=== PATIENT | female | born 1960 | race Caucasian/White ===

== ENCOUNTER 2016-05-05 08:56 | Day surgery (SDC) | payer BC, MEDICARE ==
[2016-05-03 10:11] VITALS: BMI 43.9
[~2016-05-05 08:56] MED LIST: LACTATED RINGERS 1,000 ML IV SCH
[2016-05-05 09:11] VITALS: TEMP 98.4
[2016-05-05] MEDS ORDERED: LIDOCAINE 1% 20 ML VIAL (10MG/ML) FOR IV START INTRADERMA ONE (09:18)
[2016-05-05] MEDS ORDERED: PROPOFOL 10 MG/ML 20 ML VIAL IV ONE (09:34)
[2016-05-05] MEDS ORDERED: MIDAZOLAM 2 MG/2 ML VIAL ONE (09:34)
[2016-05-05] MEDS ORDERED: fentaNYL (PF) 50 MCG/ML 2 ML AMP ONE (09:34)
--- NOTE | 2016-05-05 09:58 | P.PCN ---
Date of Procedure: 05/05/16 Procedure(s) Performed: BRIEF HISTORY: Patient is a 56-year-old pleasant white female, scheduled for an elective colonoscopy as a part of screening for colorectal neoplasia. PROCEDURE PERFORMED: Colonoscopy with snare polypectomy. PREOPERATIVE DIAGNOSIS: Screening for colon cancer. IV sedation per Anesthesia. PROCEDURE: After informed consent was obtained, the patient, was brought into the endoscopy unit. IV conscious sedation was administered by Anesthesia under continuous monitoring. Initially the Olympus CF-160 flexible video colonoscope was then inserted in the rectum, gradually advanced into the cecum without any difficulty. Careful examination was performed as the scope was gradually being withdrawn. Ileocecal valve and the appendiceal orifice were visualized and appeared normal. Prep was excellent. Mucosa of the cecum, ascending colon, appeared normal. In the transverse colon there was a 7 mL polyp removed by snare polypectomy. The rest of the transverse colon, descending colon, sigmoid colon, and rectum appeared normal. Retroflexion was performed in the rectum and no lesions were seen. The patient tolerated the procedure well. IMPRESSION: 7 mm transverse colon polyp status post polypectomy. Rest of the colon appeared normal. RECOMMENDATIONS: Findings of this examination were discussed with the patient as well as her family. She was advised to have follow with the biopsy results. If the biopsy shows a tubular adenoma she can have a repeat colonoscopy in 5 years.
[2016-05-05 10:23] VITALS: BP 132/74; PULSE 72; RESP 18
== END 2016-05-05 10:54 | disposition home or self-care (01) ==
LOC: ORWHC2ENDO 08:56
PROVIDERS: ATTEND Internal Medicine Gastroenterology
DX: Z12.11 Encounter for screening for malignant neoplasm of colon (principal); K63.5 Polyp of colon; E07.9 Disorder of thyroid, unspecified; F32.9 Major depressive disorder, single episode, unspecified; F17.200 Nicotine dependence, unspecified, uncomplicated; Z79.899 Other long term (current) drug therapy
CPT/HCPCS: 88305; 45385; J2250; J3010; J2704

== ENCOUNTER 2016-06-05 16:00 | Emergency (ER) | payer SELFPAY ==
[2016-06-05] MEDS ORDERED: SODIUM CHLORIDE 0.9% 1,000 ML IV STA (16:27)
[2016-06-05 17:03] LABS: Ammonia <9 umol/L (<30)
[2016-06-05 17:07] LABS: ALT 25 U/L (9-52); AST 54 U/L (14-36); Alkaline Phosphatase 142 U/L (38-126); Anion Gap 10 mmol/L; Blood Urea Nitrogen 19 mg/dL (7-17); Calcium 8.5 mg/dL (8.4-10.2); Carbon Dioxide 25 mmol/L (22-30); Chloride 109 mmol/L (98-107); Glucose 112 mg/dL (74-99); Non-African American GFR(MDRD) >60 (>60 ml/min/1.73 sqM); Potassium 4.6 mmol/L (3.5-5.1); Sodium 144 mmol/L (137-145); Total Bilirubin 2.2 mg/dL (0.2-1.3); Total Protein 5.8 g/dL (6.3-8.2)
[2016-06-05 17:15] LABS: CHCM 30.5; HCT 33.1 % (34.0-46.0); HDW 3.48; Hypochromasia Moderate; MCH 27.4 pg (25.0-35.0); MCHC 30.9 g/dL (31.0-37.0); MCV 88.7 fL (80.0-100.0); Mean Platelet Volume 7.6; Poikilocytosis Slight; RBC 3.73 m/uL (3.80-5.40); RDW 15.9 % (11.5-15.5); WBC (Perox) 18.67
[2016-06-05 17:20] LABS: HGB 10.2 gm/dL (11.4-16.0)
[2016-06-05 17:23] LABS: Creatine Kinase 91 U/L (30-135)
[2016-06-05] MEDS ORDERED: RX INFO: IV CONTRAST WAS GIVEN 1 EACH MISC MISCELLANE PRN (17:27)
[2016-06-05] MEDS ORDERED: cefTRIAXone 2,000 MG in SODIUM CHLORIDE 0.9% 100 ML IVPB STA (17:29)
[2016-06-05 17:34] LABS: INR 1.6 (<1.1); Partial Thromboplastin Time 28.4 sec (22.0-30.0); Prothrombin Time 15.6 sec (9.0-12.0)
[2016-06-05 17:36] LABS: Creatine Kinase MB 2.1 ng/mL (0.0-2.4); Troponin I <0.012 ng/mL (0.000-0.034)
[2016-06-05 17:46] LABS: Add Differential Manual Differential
[2016-06-05 17:49] LABS: Nucleated Red Blood Cells 1 /100 WBC (0-0); Total Cells Counted 200
[2016-06-05 17:50] LABS: Target Cells Present; WBC 17.4 k/uL (3.8-10.6)
--- NOTE | 2016-06-05 18:20 | XR ---
EXAMINATION TYPE: XR chest 2V DATE OF EXAM: 06/05/2016 6:05 PM COMPARISON: 04/23/2014 HISTORY: Abdominal pain. Chest pain TECHNIQUE: Frontal and lateral views of the chest are obtained. FINDINGS: There is a large left pleural effusion. There is no gross heart failure. Heart appears enl arged. There are chest leads. IMPRESSION: There is a new large left pleural effusion compared to last exam. Mild cardiomegaly. Lef t lower lobe pneumonia cannot be excluded.
--- NOTE | 2016-06-05 18:56 | CT ---
EXAMINATION TYPE: CT brain wo con DATE OF EXAM: 06/05/2016 6:40 PM COMPARISON: NONE HISTORY: Confusion. CT DLP: 1012.70 mGycm Automated exposure control for dose reduction was used. FINDINGS: Ventricles of normal size. There is no mass effect nor midline shift. There is some subtle hypodensity in the anterior right temporal lobe. There is slight hypodensity in the right internal capsule near the Melissa. There is no midline shift. There is no sign of intracrania l hemorrhage. IMPRESSION: There is some subtle hypodensity in the right temporal lobe that could relate to an acute ischemic in farct.
--- NOTE | 2016-06-05 19:07 | CT ---
EXAMINATION TYPE: CT abdomen pelvis w con DATE OF EXAM: 06/05/2016 6:40 PM COMPARISON: NONE HISTORY: Bright red rectal bleeding. CT DLP: 4696.20 mGycm Automated exposure control for dose reduction was used. TECHNIQUE: Helical acquisition of images was performed from the lung bases through the pelvis. CONTRAST: Performed without Oral Contrast and with IV Contrast, patient injected with 100 mL of Omnipaque 300. FINDINGS: There is a moderate-sized left pleural effusion. There is atelectasis in the left lower lobe. The sto mach is displaced anteriorly. There is a large mixed density mass in the left upper quadrant. This me asures 19 x 14 cm. The liver has normal size. Gallbladder appears normal. The pancreatic tail appears medially displaced. There is subcutaneous edema over the lower lumbar spine. Kidneys show satisfactory contrast opacification. There is no hydronephrosis. There is no adrenal mas s. There is no retroperitoneal adenopathy. Bladder distends smoothly. There is some free fluid in the pelvis. There is a right hip prosthesis. E xam is limited by metal artifact. The lower lumbar spine shows degenerative disc space narrowing and vacuum disc phenomenon. IMPRESSION: THERE IS A LARGE COMPLEX MASS IN THE LEFT UPPER QUADRANT THAT COULD RELATE TO A LARGE SUBCAPSULAR CHR ONIC HEMATOMA OF THE SPLEEN. THERE ARE SURGICAL CLIPS IN THE LEFT UPPER QUADRANT AT THE TAIL OF THE P ANCREAS OF UNCERTAIN SIGNIFICANCE. SURGICAL CLIPS APPEARED NEW COMPARED TO CHEST CT SCAN OF 6. THIS RESULT WAS GIVEN TO DR. PHILLIPS AT 7:00 PM. LEFT PLEURAL EFFUSION AND LEFT LOWER LOBE ATELECTASIS. MILD ASCITES. NO EVIDENCE OF A BOWEL OBSTRUCTION. SPLENIC HEMATOMA IS NEW COMPARED TO THE CHEST CT SC AN OF 12/31/2015.
[2016-06-05 19:08] VITALS: BP 132/63; TEMP 100.5
[2016-06-05 19:13] LABS: Appearance,Urine Cloudy (Clear); Bilirubin,Urine 1+ (Negative); Glucose,Urine (UA) Negative (Negative); Ketones,Urine Negative (Negative); Leukocyte Esterase,Urine Small (Negative); Mucus,Urine Moderate /hpf; Nitrite,Urine Negative (Negative); PH, Urine 6.5 (5.0-8.0); Particle Count 9157; Protein,Urine Trace (Negative); RBC,Urine 62 /hpf (0-5); Squamous Epithelial Cell,Urine 3 /hpf (0-4); UA Billing (MACRO vs. MICRO) MICRO; Urobilinogen,Urine >12.0 mg/dL (<2.0); WBC,Urine 40 /hpf (0-5)
[2016-06-05] MEDS ORDERED: ACETAMINOPHEN TAB 500 MG TAB PO STA (19:19)
--- NOTE | 2016-06-05 19:23 | ED ---
GI Bleed HPI - General Chief complaint: GI Bleed Stated complaint: RECTAL BLEEDING Time Seen by Provider: 06/05/16 16:12 Source: EMS Mode of arrival: EMS - History of Present Illness Initial comments: 56 years old was sent from our point for the GI bleed she had some bright red blood per rectum, she had quite a quite active 2 months. She had colonoscopy in the first part of May then she had abdominal pain since [place] [facility] [place] she had splenic bleed at that point she had the embolization of the bleeder, after that she developed CVA and she had a blood clot removed interventional neurologist after that she was started on now blood thinners him a she has been doing very well as far as the effected side she been making progress as well as CVA was concerned. Review of system is unremarkable otherwise - Related Data Home Medications Medication Instructions Recorded Confirmed Albuterol Sulfate [Ventolin HFA] 2 puff INHALATION RT-Q4H PRN 05/03/16 06/05/16 Ergocalciferol (Vitamin D2) 50,000 unit PO MO 05/03/16 06/05/16 [Vitamin D2] Levothyroxine Sodium [Synthroid] 100 mcg PO DAILY 05/03/16 06/05/16 Venlafaxine HCl [Venlafaxine HCl 37.5 mg PO HS 05/03/16 06/05/16 ER] Venlafaxine HCl [Venlafaxine HCl 150 mg PO HS 05/03/16 06/05/16 ER] Apixaban [Eliquis] 5 mg PO BID 06/05/16 06/05/16 Aspirin 325 mg PO DAILY 06/05/16 06/05/16 Atorvastatin Calcium [Lipitor] 10 mg PO HS 06/05/16 06/05/16 Furosemide [Lasix] 40 mg PO DAILY 06/05/16 06/05/16 Hydrocodone/Acetaminophen [Wysox 1 tab PO Q4HR PRN 06/05/16 06/05/16 7.5-325] Levofloxacin [Levaquin] 500 mg PO DAILY 06/05/16 06/05/16 Potassium Chloride [Klor-Con 20] 20 meq PO DAILY 06/05/16 06/05/16 guaiFENesin [Mucinex] 600 mg PO BID 06/05/16 06/05/16 Allergies Allergy/AdvReac Type Severity Reaction Status Date / Time vancomycin Allergy Red Man Verified 06/05/16 18:05 Syndrome Review of Systems ROS Statement: Those systems with pertinent positive or pertinent negative responses have been documented in the HPI. ROS Other: All systems not noted in ROS Statement are negative. Past Medical History Past Medical History: CVA/TIA, Thyroid Disorder Additional Past Medical History / Comment(s): OCCASIONAL LEG SWELLING History of Any Multi-Drug Resistant Organisms: None Reported Past Surgical History: Section, Hysterectomy, Joint Replacement Additional Past Surgical History / Comment(s): MARY KNEE REPLACEMENTS, RT HIP REPLACEMENT, c-secx2 Additional Past Anesthesia/Blood Transfusion Reaction / Comment(s): "HARD TIME WAKING UP" Past Psychological History: Anxiety Smoking Status: Current every day smoker Past Alcohol Use History: Rare Additional Past Alcohol Use History / Comment(s): STARTED SMOKING AGE 15, STATES SMOKES >1PPD Past Drug Use History: None Reported - Past Family History Mother Family Medical History: Cancer Additional Family Medical History / Comment(s): LYMPHOMA General Exam - General Exam Comments Initial Comments: General: The patient is awake and alert, in no distress, and does not appear acutely ill. She looks tired and pale Skin: Skin is warm and dry and no rashes or lesions are noted. Eye: Pupils are equal, round and reactive to light, extra-ocular movements are intact; there is normal conjunctiva bilaterally. Ears, nose, mouth and throat: There are moist mucous membranes and no oral lesions. Neck: The neck is supple, there is no tenderness Cardiovascular: There is a regular rate and rhythm. No murmur, rub or gallop is appreciated. Respiratory: To auscultation bilateral, no wheezing no rhonchi no distress respiratory mcadams noticed Gastrointestinal: All stable bowel sounds, mild diffuse tenderness over the splenic area Back: There is no tenderness to palpation in the midline. There is no obvious deformity. Musculoskeletal: Normal ROM, no tenderness, There is no pedal edema. There is no calf tenderness or swelling. No cords were appreciated. Neurological: CN II-XII intact, Cranial nerves III through XII are intact. There are no obvious motor or sensory deficits. Coordination appears grossly intact. Speech is normal. Psychiatric: Cooperative, appropriate mood & affect, normal judgment. Course Vital Signs 06/05/16 06/05/16 16:03 19:03 Temperature 98.5 F 100.5 F H Pulse Rate 87 75 Respiratory 18 18 Rate Blood Pressure 133/64 132/63 O2 Sat by Pulse 96 95 Oximetry , Get a call from the radiologist about finding about the spleen he stated he do not see active spleen but this is not a normal spleen me seeing some swelling some possible hemorrhage is not sure if this acute or subacute him, knowing patient's recent history of for a splenic injury and then the splenic all 3 intervention or embolization and being on a blood thinners family requested that they would like to go back to if this with a clear decision they did not want to go to any other place and hemoglobin has dropped from 16.2-10.2 I actually feel this is lower than 10.2-10.2 is somewhat hemoconcentrated because of the dehydration and she is on a blood thinners at this point considering that I did get hold of [place] [facility] and they accepted the patient accepting doctors name at is Dr Palma Medical Decision Making - Lab Data Result diagrams: 06/05/16 16:11 06/05/16 16:11 Lab Results 06/05/16 06/05/16 06/05/16 Range/Units 16:11 16:11 16:11 WBC 17.4 H (3.8-10.6) k/uL RBC 3.73 L (3.80-5.40) m/uL Hgb 10.2 L D (11.4-16.0) gm/dL Hct 33.1 L (34.0-46.0) % MCV 88.7 (80.0-100.0) fL MCH 27.4 (25.0-35.0) pg MCHC 30.9 L (31.0-37.0) g/dL RDW 15.9 H (11.5-15.5) % Plt Count 882 H* D (150-450) k/uL Neutrophils % (Manual) 73.5 % Lymphocytes % (Manual) 13.5 % Monocytes % (Manual) 11.5 % Eosinophils % (Manual) 1.5 % Neutrophils # (Manual) 12.8 H (1.3-7.7) k/uL Lymphocytes # (Manual) 2.3 (1.0-4.8) k/uL Monocytes # (Manual) 2.0 H (0-1.0) k/uL Eosinophils # (Manual) 0.3 (0-0.7) k/uL Nucleated RBCs 1 H (0-0) /100 WBC Hypochromasia Moderate Poikilocytosis Slight Anisocytosis (manual) Present Target Cells Present PT (9.0-12.0) sec INR (<1.1) APTT (22.0-30.0) sec Sodium (137-145) mmol/L Potassium (3.5-5.1) mmol/L Chloride (98-107) mmol/L Carbon Dioxide (22-30) mmol/L Anion Gap mmol/L BUN (7-17) mg/dL Creatinine (0.52-1.04) mg/dL Est GFR (MDRD) Af Amer (>60 ml/min/1.73 sqM) Est GFR (MDRD) Non-Af (>60 ml/min/1.73 sqM) Glucose (74-99) mg/dL Plasma Lactic Acid Abdiel 1.3 (0.7-2.0) mmol/L Calcium (8.4-10.2) mg/dL Total Bilirubin (0.2-1.3) mg/dL AST (14-36) U/L ALT (9-52) U/L Alkaline Phosphatase (38-126) U/L Ammonia <9 (<30) umol/L Total Creatine Kinase 91 (30-135) U/L CK-MB (CK-2) 2.1 (0.0-2.4) ng/mL CK-MB (CK-2) Rel Index 2.3 Troponin I <0.012 (0.000-0.034) ng/mL Total Protein (6.3-8.2) g/dL Albumin (3.5-5.0) g/dL Urine Color Urine Appearance (Clear) Urine pH (5.0-8.0) Ur Specific Wagner (1.001-1.035) Urine Protein (Negative) Urine Glucose (UA) (Negative) Urine Ketones (Negative) Urine Blood (Negative) Urine Nitrite (Negative) Urine Bilirubin (Negative) Urine Urobilinogen (<2.0) mg/dL Ur Leukocyte Esterase (Negative) Urine RBC (0-5) /hpf Urine WBC (0-5) /hpf Ur Squamous Epith Cells (0-4) /hpf Urine Mucus (None) /hpf Urine Yeast (Budding) (None) /hpf 06/05/16 06/05/16 06/05/16 Range/Units 16:11 16:51 19:00 WBC (3.8-10.6) k/uL RBC (3.80-5.40) m/uL Hgb (11.4-16.0) gm/dL Hct (34.0-46.0) % MCV (80.0-100.0) fL MCH (25.0-35.0) pg MCHC (31.0-37.0) g/dL RDW (11.5-15.5) % Plt Count (150-450) k/uL Neutrophils % (Manual) % Lymphocytes % (Manual) % Monocytes % (Manual) % Eosinophils % (Manual) % Neutrophils # (Manual) (1.3-7.7) k/uL Lymphocytes # (Manual) (1.0-4.8) k/uL Monocytes # (Manual) (0-1.0) k/uL Eosinophils # (Manual) (0-0.7) k/uL Nucleated RBCs (0-0) /100 WBC Hypochromasia Poikilocytosis Anisocytosis (manual) Target Cells PT 15.6 H (9.0-12.0) sec INR 1.6 (<1.1) APTT 28.4 (22.0-30.0) sec Sodium 144 (137-145) mmol/L Potassium 4.6 (3.5-5.1) mmol/L Chloride 109 H (98-107) mmol/L Carbon Dioxide 25 (22-30) mmol/L Anion Gap 10 mmol/L BUN 19 H (7-17) mg/dL Creatinine 0.68 (0.52-1.04) mg/dL Est GFR (MDRD) Af Amer >60 (>60 ml/min/1.73 sqM) Est GFR (MDRD) Non-Af >60 (>60 ml/min/1.73 sqM) Glucose 112 H (74-99) mg/dL Plasma Lactic Acid Abdiel (0.7-2.0) mmol/L Calcium 8.5 (8.4-10.2) mg/dL Total Bilirubin 2.2 H (0.2-1.3) mg/dL AST 54 H (14-36) U/L ALT 25 (9-52) U/L Alkaline Phosphatase 142 H (38-126) U/L Ammonia (<30) umol/L Total Creatine Kinase (30-135) U/L CK-MB (CK-2) (0.0-2.4) ng/mL CK-MB (CK-2) Rel Index Troponin I (0.000-0.034) ng/mL Total Protein 5.8 L (6.3-8.2) g/dL Albumin 2.6 L (3.5-5.0) g/dL Urine Color Yellow Urine Appearance Cloudy H (Clear) Urine pH 6.5 (5.0-8.0) Ur Specific Wagner 1.030 (1.001-1.035) Urine Protein Trace H (Negative) Urine Glucose (UA) Negative (Negative) Urine Ketones Negative (Negative) Urine Blood Moderate H (Negative) Urine Nitrite Negative (Negative) Urine Bilirubin 1+ H (Negative) Urine Urobilinogen >12.0 (<2.0) mg/dL Ur Leukocyte Esterase Small H (Negative) Urine RBC 62 H (0-5) /hpf Urine WBC 40 H (0-5) /hpf Ur Squamous Epith Cells 3 (0-4) /hpf Urine Mucus Moderate H (None) /hpf Urine Yeast (Budding) Moderate H (None) /hpf Critical Care Time Total Critical Care Time: 45 Critical Care Time: Centering she is on now blood thinners and CT confirms a splenic injury and she has a recent history of splenic injury where she had interventional radiologists embolized the bleeder and now her hemoglobin has dropped significantly from 16.2-10.2. Arrangements were made for 4 transferred to [facility] (family's decision to go to and a considering pneumonia she was given some antibiotics Rocephin 2 g and she also was we also did the fluid resuscitation, no transfusion is required considering her hemoglobin is 10.2 and 90 do not want to delay the trauma transfer Disposition Clinical Impression: GI bleed, Anemia, Splenic hemorrhage, Pneumonia Disposition: OTHER INSTITUTION NOT DEFINED Condition: Fair - Out of Hospital Transfer - Req. Specs Out of Hospital Transfer - Requested Specifics: Other Emergency Center (She be going to at [facility])
[2016-06-05] MEDS ORDERED: ACETAMINOPHEN IV (For NPO) 1,000 MG in EMPTY BAG 1 BAG IVPB ONE (19:30)
[2016-06-05 19:32] VITALS: PULSE 91; RESP 16
== END 2016-06-05 19:58 | disposition short-term general hospital (02) ==
LOC: EC 16:00
DX: K92.2 Gastrointestinal hemorrhage, unspecified (principal); D73.5 Infarction of spleen; J18.9 Pneumonia, unspecified organism; D64.9 Anemia, unspecified; E07.9 Disorder of thyroid, unspecified; F41.9 Anxiety disorder, unspecified; F17.200 Nicotine dependence, unspecified, uncomplicated; Z86.73 Personal history of transient ischemic attack (TIA), and cerebral infarction without residual deficits; Z79.82 Long term (current) use of aspirin; Z79.899 Other long term (current) drug therapy; Z79.01 Long term (current) use of anticoagulants; Z88.1 Allergy status to other antibiotic agents
CPT/HCPCS: 99291; 96365; 96375; 96361 ×2; 36415; 80053; 82140; 82550; 82553; 83605; 84484; 85025; 85610; 85730; 81001; 71020; 70450; 74177; J0696; Q9967; J0131

== ENCOUNTER → 2016-06-20 | Outpatient (CLI) | payer BC ==
[2016-06-20 19:35] LABS: Basophils % (A) 0 %; CH 26.9; CHCM 29.4; Eosinophils # (A) 0.4 k/uL (0-0.7); Eosinophils % (A) 3 %; HCT 37.2 % (34.0-46.0); HDW 3.47; Hypochromasia Marked; Luc # (Auto) 0.41; Luc % (Auto) 4; Lymphocytes # (A) 2.8 k/uL (1.0-4.8); Lymphocytes % (A) 25 %; MCH 27.2 pg (25.0-35.0); MCHC 29.6 g/dL (31.0-37.0); MCV 91.8 fL (80.0-100.0); Mean Platelet Volume 7.8; Monocytes # (A) 1.4 k/uL (0-1.0); Monocytes % (A) 13 %; Neutrophils # (A) 6.1 k/uL (1.3-7.7); Neutrophils % (A) 55 %; Poikilocytosis Slight; RBC 4.05 m/uL (3.80-5.40); RDW 15.5 % (11.5-15.5); WBC 11.1 k/uL (3.8-10.6); WBC (Perox) 11.75
[2016-06-20 19:40] LABS: AST 86 U/L (14-36); Alkaline Phosphatase 238 U/L (38-126); Anion Gap 14 mmol/L; Blood Urea Nitrogen 12 mg/dL (7-17); Carbon Dioxide 26 mmol/L (22-30); Chloride 100 mmol/L (98-107); Glucose 102 mg/dL (74-99); Non-African American GFR(MDRD) >60 (>60 ml/min/1.73 sqM); Sodium 140 mmol/L (137-145); Total Protein 7.8 g/dL (6.3-8.2)
[2016-06-20 19:46] LABS: ALT <6 U/L (9-52)
[2016-06-20 19:51] LABS: Potassium 4.6 mmol/L (3.5-5.1)
== END ==
LOC: MMGSC 12:22
PROVIDERS: ATTEND Family Medicine
DX: S36.039A Unspecified laceration of spleen, initial encounter (principal); Z86.2 Personal history of diseases of the blood and blood-forming organs and certain disorders involving the immune mechanism
CPT/HCPCS: 36415; 80053; 85025

== ENCOUNTER → 2016-06-22 | Outpatient (CLI) | payer BC | LOC: MMGSC 12:28 | PROVIDERS: ATTEND Family Medicine | DX: N39.0 Urinary tract infection, site not specified (principal) | CPT/HCPCS: 87077; 87086; 87186 ==

== ENCOUNTER → 2016-06-28 | Outpatient (CLI) | payer BC ==
[2016-06-28 19:07] LABS: Basophils % (A) 0 %; CH 26.3; CHCM 29.2; Eosinophils # (A) 0.2 k/uL (0-0.7); Eosinophils % (A) 2 %; HCT 39.2 % (34.0-46.0); HDW 3.15; HGB 11.5 gm/dL (11.4-16.0); Hypochromasia Marked; Luc % (Auto) 2; Lymphocytes # (A) 2.5 k/uL (1.0-4.8); Lymphocytes % (A) 22 %; MCH 26.4 pg (25.0-35.0); MCHC 29.2 g/dL (31.0-37.0); MCV 90.4 fL (80.0-100.0); Mean Platelet Volume 7.1; Monocytes # (A) 1.1 k/uL (0-1.0); Monocytes % (A) 9 %; Neutrophils # (A) 7.5 k/uL (1.3-7.7); Neutrophils % (A) 65 %; RBC 4.34 m/uL (3.80-5.40); RDW 15.8 % (11.5-15.5); WBC 11.6 k/uL (3.8-10.6); WBC (Perox) 11.56
[2016-06-28 19:09] LABS: ALT 12 U/L (9-52); AST 17 U/L (14-36); Alkaline Phosphatase 103 U/L (38-126); Anion Gap 12 mmol/L; Blood Urea Nitrogen 18 mg/dL (7-17); Calcium 9.4 mg/dL (8.4-10.2); Carbon Dioxide 25 mmol/L (22-30); Chloride 103 mmol/L (98-107); Glucose 130 mg/dL (74-99); Non-African American GFR(MDRD) >60 (>60 ml/min/1.73 sqM); Potassium 4.2 mmol/L (3.5-5.1); Sodium 140 mmol/L (137-145); Total Bilirubin 0.8 mg/dL (0.2-1.3)
[2016-06-29 18:41] LABS: Hemoglobin A1C 5.9 % (4.2-6.1)
== END ==
LOC: MMGSC 12:03
PROVIDERS: ATTEND Family Medicine
DX: R79.89 Other specified abnormal findings of blood chemistry (principal)
CPT/HCPCS: 36415; 80053; 83036; 85025

== ENCOUNTER → 2016-07-06 | Outpatient (CLI) | payer BC ==
[2016-07-06 18:52] LABS: Anisocytosis Slight; Basophils # (A) 0.1 k/uL (0-0.2); Basophils % (A) 1 %; CH 25.9; CHCM 27.7; Eosinophils # (A) 0.7 k/uL (0-0.7); Eosinophils % (A) 5 %; HCT 42.2 % (34.0-46.0); HDW 2.89; HGB 11.9 gm/dL (11.4-16.0); Hypochromasia Marked; Luc # (Auto) 0.41; Luc % (Auto) 3; Lymphocytes # (A) 2.8 k/uL (1.0-4.8); Lymphocytes % (A) 21 %; MCH 26.5 pg (25.0-35.0); MCHC 28.2 g/dL (31.0-37.0); MCV 93.8 fL (80.0-100.0); Monocytes # (A) 0.9 k/uL (0-1.0); Monocytes % (A) 7 %; Neutrophils # (A) 8.3 k/uL (1.3-7.7); Neutrophils % (A) 63 %; RDW 16.1 % (11.5-15.5); WBC 13.1 k/uL (3.8-10.6); WBC (Perox) 13.42
== END | disposition home or self-care (01) ==
LOC: MMGSC 11:20
PROVIDERS: ATTEND Family Medicine
DX: R82.90 Unspecified abnormal findings in urine (principal); R79.9 Abnormal finding of blood chemistry, unspecified
CPT/HCPCS: 36415; 85025; 87086

== ENCOUNTER → 2016-07-19 | Outpatient (CLI) | payer BC ==
[2016-07-19 18:58] LABS: ALT 15 U/L (9-52); AST 18 U/L (14-36); Alkaline Phosphatase 81 U/L (38-126); Anion Gap 11 mmol/L; Blood Urea Nitrogen 10 mg/dL (7-17); Calcium 9.3 mg/dL (8.4-10.2); Carbon Dioxide 25 mmol/L (22-30); Chloride 101 mmol/L (98-107); Creatine Kinase 44 U/L (30-135); Glucose 105 mg/dL (74-99); Non-African American GFR(MDRD) >60 (>60 ml/min/1.73 sqM); Potassium 4.5 mmol/L (3.5-5.1); Sodium 137 mmol/L (137-145); Total Bilirubin 0.7 mg/dL (0.2-1.3); Total Protein 6.6 g/dL (6.3-8.2)
[2016-07-19 19:19] LABS: Anisocytosis Slight; Basophils # (A) 0.1 k/uL (0-0.2); Basophils % (A) 0 %; CH 26.1; CHCM 28.9; Eosinophils # (A) 0.3 k/uL (0-0.7); Eosinophils % (A) 2 %; HCT 37.7 % (34.0-46.0); HDW 2.69; HGB 11.3 gm/dL (11.4-16.0); Hypochromasia Marked; Luc # (Auto) 0.25; Luc % (Auto) 2; Lymphocytes # (A) 2.2 k/uL (1.0-4.8); Lymphocytes % (A) 17 %; MCH 27.2 pg (25.0-35.0); MCHC 29.9 g/dL (31.0-37.0); MCV 90.7 fL (80.0-100.0); Mean Platelet Volume 7.8; Monocytes # (A) 1.3 k/uL (0-1.0); Monocytes % (A) 10 %; Neutrophils # (A) 9.4 k/uL (1.3-7.7); Neutrophils % (A) 69 %; RBC 4.16 m/uL (3.80-5.40); RDW 16.3 % (11.5-15.5); WBC 13.6 k/uL (3.8-10.6); WBC (Perox) 13.74
== END ==
LOC: MMGSC 10:55
PROVIDERS: ATTEND Family Medicine
DX: D72.829 Elevated white blood cell count, unspecified (principal); M79.1 Myalgia
CPT/HCPCS: 36415; 80053; 82550; 83735; 85025

== ENCOUNTER → 2016-08-24 | Outpatient (CLI) | payer BC ==
[2016-08-24 18:49] LABS: Anisocytosis Slight; Basophils # (A) 0.1 k/uL (0-0.2); Basophils % (A) 1 %; CH 26.1; CHCM 28.7; Eosinophils # (A) 0.2 k/uL (0-0.7); Eosinophils % (A) 2 %; HDW 2.84; HGB 13.5 gm/dL (11.4-16.0); Hypochromasia Marked; Luc # (Auto) 0.24; Luc % (Auto) 2; Lymphocytes # (A) 2.9 k/uL (1.0-4.8); Lymphocytes % (A) 27 %; MCH 25.2 pg (25.0-35.0); MCHC 27.5 g/dL (31.0-37.0); MCV 91.6 fL (80.0-100.0); Mean Platelet Volume 8.4; Monocytes # (A) 0.8 k/uL (0-1.0); Monocytes % (A) 8 %; Neutrophils # (A) 6.4 k/uL (1.3-7.7); Neutrophils % (A) 61 %; RBC 5.36 m/uL (3.80-5.40); RDW 16.7 % (11.5-15.5); WBC 10.6 k/uL (3.8-10.6); WBC (Perox) 10.78
[2016-08-24 18:55] LABS: ALT 17 U/L (9-52); AST 25 U/L (14-36); Alkaline Phosphatase 110 U/L (38-126); Anion Gap 12 mmol/L; Blood Urea Nitrogen 16 mg/dL (7-17); Calcium 9.6 mg/dL (8.4-10.2); Carbon Dioxide 25 mmol/L (22-30); Chloride 103 mmol/L (98-107); Glucose 91 mg/dL (74-99); Non-African American GFR(MDRD) >60 (>60 ml/min/1.73 sqM); Potassium 4.4 mmol/L (3.5-5.1); Sodium 140 mmol/L (137-145); Total Bilirubin 0.9 mg/dL (0.2-1.3); Total Protein 7.5 g/dL (6.3-8.2)
== END ==
LOC: MMGSC 15:59
PROVIDERS: ATTEND Family Medicine
DX: D72.829 Elevated white blood cell count, unspecified (principal); R79.89 Other specified abnormal findings of blood chemistry
CPT/HCPCS: 36415; 80053; 85025

== ENCOUNTER → 2016-08-29 | Outpatient (CLI) | payer BC ==
[2016-08-29 11:56] LABS: Cholesterol 155 mg/dL (<200); HDL Cholesterol 84 mg/dL (40-60); Triglycerides 81 mg/dL (<150)
[2016-09-01 13:58] LABS: Protein C (Activity) 123 % (70 - 130)
[2016-09-01 13:59] LABS: Free Protein S Antigen 115 % (50 - 147)
== END | disposition home or self-care (01) ==
LOC: LABWHC1 09:50
PROVIDERS: ATTEND Psychiatry & Neurology Neurology
DX: I63.9 Cerebral infarction, unspecified (principal)
CPT/HCPCS: 36415; 80061; 83090; 85303; 85306; 85613; 85730; 86147

== ENCOUNTER → 2016-09-06 | Outpatient (CLI) | payer BC ==
--- NOTE | 2016-09-06 13:04 | CT ---
EXAMINATION TYPE: CT abdomen pelvis w con DATE OF EXAM: 09/06/2016 COMPARISON: June 05, 2016 HISTORY: Abdomen and pelvic pain CT DLP: 3330.1 mGycm CONTRAST: CT scan of the abdomen and pelvis is performed with Oral Contrast and with IV Contrast, patient injec go with 100 mL of Omnipaque 300. FINDINGS: LUNG BASES-: No visible nodule. No infiltrate. Left basilar effusion is noted measuring 1.7 cm in AP dimension. The lung bases are otherwise clear LIVER/GB: No calcified gallstones. No space occupying hepatic lesion. Biliary tree is of normal ca liber. There is evidence of fatty hepatic infiltration. PANCREAS: No inflammation. No distinct mass. SPLEEN: No splenic enlargement. No lesion seen. ADRENALS: No nodule. No thickening. KIDNEYS/BLADDER: No hydronephrosis. No nephrolithiasis. No disctinct renal mass. Urinary bladder g rossly unremarkable. BOWEL: Normal appendix. Normal bowel caliber. No inflammation. GENITAL ORGANS: No gross abnormality. LYMPH NODES: No greater than 1cm abdominal or pelvic lymph nodes are appreciated. AORTA: No significant abnormality. OSSEOUS STRUCTURES: Right hip prosthesis. Degenerative changes lumbar spine. IVC filter is in place. OTHER: Large mass seen previously is significantly smaller in size on the current examination and osbaldo sures approximately 6.5 x 5.7 x 4.7 cm versus 19 x 14 cm previously. Most of the mass appears solid w ith small fluid or necrotic components seen. Adjacent nodule is identified measuring approximately 2 cm. IMPRESSION: 1. Large mass seen previously is significantly smaller in size on the current examination and measure s approximately 6.5 x 5.7 x 4.7 cm versus 19 x 14 cm previously. Most of the mass appears solid with small fluid or necrotic components seen. Adjacent nodule is identified . 2. Fatty liver. 3. Small left-sided pleural effusion.
== END ==
LOC: RADCTMAIN 10:50
PROVIDERS: ATTEND Family Medicine
DX: K76.0 Fatty (change of) liver, not elsewhere classified (principal); R19.00 Intra-abdominal and pelvic swelling, mass and lump, unspecified site
CPT/HCPCS: 74177; Q9967

== ENCOUNTER → 2016-09-11 | Outpatient (CLI) | payer BC ==
--- NOTE | 2016-09-11 12:47 | US ---
EXAMINATION TYPE: US venous doppler duplex LE LT DATE OF EXAM: 09/11/2016 11:44 AM COMPARISON: NONE CLINICAL HISTORY: 56-year-old female R22.42 SWELLING LT LOWER LIMB. Recent Left LE swelling. Patient stated had prior right DVT, but due to HX splenic hemorrhage, is unable to be on blood thinners; prio r stroke affecting left side of body as result of splenic hemorrhage per patient SIDE PERFORMED: Left TECHNIQUE: The lower extremity deep venous system is examined utilizing real time linear array sonog amilcar with graded compression, doppler sonography and color-flow sonography. FINDINGS: VESSELS IMAGED: Common Femoral Vein Deep Femoral Vein Greater Saphenous Vein * Femoral Vein Popliteal Vein Small Saphenous Vein * Proximal Calf Veins Posterior tibial veins (* superficial vessels) Left Leg: Negative for DVT IMPRESSION: No evidence for DVT within the left lower extremity.
== END | disposition home or self-care (01) ==
LOC: RADUSWWP 10:53
PROVIDERS: ATTEND Family Medicine
DX: R22.42 Localized swelling, mass and lump, left lower limb (principal)

== ENCOUNTER → 2016-12-01 | Outpatient (CLI) | payer MEDICARE, BC ==
[2016-12-01 21:12] LABS: Anisocytosis Slight; Basophils # (A) 0.1 k/uL (0-0.2); Basophils % (A) 1 %; CH 25.3; CHCM 30.1; Eosinophils % (A) 0 %; HCT 49.6 % (34.0-46.0); HDW 3.01; Hypochromasia Marked; Luc # (Auto) 0.12; Luc % (Auto) 2; Lymphocytes # (A) 1.7 k/uL (1.0-4.8); Lymphocytes % (A) 24 %; MCH 25.5 pg (25.0-35.0); MCHC 30.1 g/dL (31.0-37.0); MCV 84.7 fL (80.0-100.0); Monocytes # (A) 0.6 k/uL (0-1.0); Monocytes % (A) 9 %; Neutrophils # (A) 4.6 k/uL (1.3-7.7); Neutrophils % (A) 65 %; RBC 5.86 m/uL (3.80-5.40); RDW 18.1 % (11.5-15.5); WBC 7.1 k/uL (3.8-10.6); WBC (Perox) 7.35
[2016-12-01 21:14] LABS: ALT 21 U/L (9-52); AST 27 U/L (14-36); Alkaline Phosphatase 124 U/L (38-126); Anion Gap 13 mmol/L; Blood Urea Nitrogen 13 mg/dL (7-17); Calcium 9.6 mg/dL (8.4-10.2); Carbon Dioxide 26 mmol/L (22-30); Chloride 102 mmol/L (98-107); Glucose 96 mg/dL (74-99); Non-African American GFR(MDRD) >60 (>60 ml/min/1.73 sqM); Potassium 4.5 mmol/L (3.5-5.1); Sodium 141 mmol/L (137-145); Total Bilirubin 0.6 mg/dL (0.2-1.3); Total Protein 7.2 g/dL (6.3-8.2)
[2016-12-01 22:01] LABS: Vitamin B12 305 pg/mL (239-931)
== END ==
LOC: MMGSC 12:06
PROVIDERS: ATTEND Family Medicine
DX: D72.829 Elevated white blood cell count, unspecified (principal); R53.83 Other fatigue
CPT/HCPCS: 36415; 80053; 82306; 82607; 84439; 84443; 85025

== ENCOUNTER → 2017-03-12 | Outpatient (CLI) | payer BC ==
--- NOTE | 2017-03-12 13:51 | US ---
EXAMINATION TYPE: US venous doppler duplex LE LT DATE OF EXAM: 03/12/2017 1:38 PM COMPARISON: US CLINICAL HISTORY: R22.42 Left leg swelling. SIDE PERFORMED: Left TECHNIQUE: The lower extremity deep venous system is examined utilizing real time linear array sonog amilcar with graded compression, doppler sonography and color-flow sonography. VESSELS IMAGED: External Iliac Vein (EIV) Common Femoral Vein Deep Femoral Vein Greater Saphenous Vein * Femoral Vein Popliteal Vein Small Saphenous Vein * Proximal Calf Veins (* superficial vessels) Results given to Jolene at Dr's office immediately following exam. Left Leg: Negative for DVT Grayscale, color doppler, spectral doppler imaging performed of the deep veins of the lower extremiti es. There is normal flow, compressibility, vascular waveforms. IMPRESSION: No sonographic evidence of deep venous thrombosis within the left lower extremity.
== END | disposition home or self-care (01) ==
LOC: RADUSWWP 12:43
PROVIDERS: ATTEND Family Medicine
DX: R22.42 Localized swelling, mass and lump, left lower limb (principal)

== ENCOUNTER → 2017-04-19 | Outpatient (CLI) | payer BC | END | disposition home or self-care (01) | LOC: MMGSC 15:02 | PROVIDERS: ATTEND Family Medicine | DX: Z09 Encounter for follow-up examination after completed treatment for conditions other than malignant neoplasm (principal); Z86.39 Personal history of other endocrine, nutritional and metabolic disease | CPT/HCPCS: 36415; 82306 ==

== ENCOUNTER → 2017-05-29 | Outpatient (CLI) | payer BC | END | disposition home or self-care (01) | LOC: MMGSC 16:19 | PROVIDERS: ATTEND Family Medicine | DX: N39.0 Urinary tract infection, site not specified (principal) | CPT/HCPCS: 87086 ==

== ENCOUNTER → 2017-06-05 | Outpatient (CLI) | payer BC ==
--- NOTE | 2017-06-05 18:56 | CONS ---
CONSULTATION REASON FOR CONSULTATION: Sleep apnea. This patient is 57 and she was asked to come in by her neurologist to be evaluated for obstructive sleep apnea. The patient had a CVA that resulted in some left-sided weakness back in 2017. Since then she has become less active and she has gained some weight and she is on and off snoring, yet there are no documented witnessed apneas. Her current Davis score is 8. She is going to bed around midnight and wakes up somewhere between 7:00 and 8:00 in the morning. She at times wakes up to an alarm; however, she feels tired and fatigued during the day. Occasionally she takes naps. She grinds her teeth on and off. No awakening in the middle of night for choking or gasping for air. No restlessness in the lower extremities. PAST MEDICAL HISTORY: 1. Obesity. 2. CVA, left-sided. 3. Anxiety/depression. 4. Complicated colonoscopy, following which the patient had an abdominal bleed, and she ultimately required coiling of the splenic artery, according to her. PAST SURGICAL HISTORY: 1. Coiling of the splenic artery that was bleeding. 2. Insertion and removal of an IVC filter. 3. Bilateral knee replacement. 4. Right hip replacement. 5. . DRUG ALLERGIES: VANCOMYCIN. OUTPATIENT MEDICATION LIST: 1. Lasix 20 daily. 2. Xanax 0.5 mg on a p.r.n. basis. 3. Motrin p.r.n. 4. Effexor 325 mg p.o. daily. 5. Potassium 10 mEq daily. 6. Neurontin 300 mg t.i.d. 7. Vitamin D 1.25 mg weekly. 8. Synthroid 100 mcg p.o. daily. 9. Aspirin 81 daily. 10.Baclofen. SOCIAL HISTORY: The patient is a 8-nxel-k-day smoker. No history of alcoholism. No history of IV drugs. FAMILY HISTORY: Negative for sleep apnea or narcolepsy. REVIEW OF SYSTEMS: Twelve-point review of systems was done. She is having some issues with mobility following her stroke. Her left side is weak. Her left face is also numb and weak. No difficulty with speech. No difficulty with memory and concentration. She worries about her chronic tiredness and sleepiness. No anxiety or panic attacks. No palpitation. No heartburn. No angina. No cough or sputum production. No sexual dysfunction. No falls. PHYSICAL EXAMINATION: BP is 136/81, pulse 72, respirations 16, temperature 97.1, saturation 97% on room air. Weight is 331. Height is 5 feet 11 inches. Davis score is 8. BMI 45.5. Neck size 17 inches. GENERAL APPEARANCE: Calm, comfortable. No acute distress. Head is atraumatic, normocephalic. Neck is short. Mallampati class IV. No goiter or neck masses. LUNGS: Clear to auscultation. HEART: Heart sounds are regular rate and rhythm. Normal S1, S2. No S3, S4. No murmurs. ABDOMEN: Soft, nontender. No organomegaly. EXTREMITIES: No edema. No cyanosis or clubbing. NEUROLOGIC: Alert and oriented x3. No focal neurological deficits. PSYCHIATRIC: Negative for anxiety or depression. SKIN: Negative for any wounds or ulceration. IMPRESSION: 1. Hypersomnia, currently under investigation. Rule out underlying obstructive sleep apnea. 2. Obesity with a body mass index of 45. 3. Cerebrovascular accident with left-sided weakness. 4. Chronic anxiety/depression. 5. Previous history of complicated gastrointestinal bleed. PLAN: 1. Encourage weight loss. 2. Implement good sleep hygiene measures. 3. Proceed with a home sleep study to evaluate any underlying sleep breathing disorder. Will continue to follow. MMODL / IJN: [id number] /
== END | disposition home or self-care (01) ==
LOC: SLEEP 15:35
PROVIDERS: ATTEND Internal Medicine Critical Care Medicine
DX: G47.10 Hypersomnia, unspecified (principal); E66.9 Obesity, unspecified; F17.200 Nicotine dependence, unspecified, uncomplicated; R53.1 Weakness; F41.9 Anxiety disorder, unspecified; F32.9 Major depressive disorder, single episode, unspecified; Z87.19 Personal history of other diseases of the digestive system; Z96.653 Presence of artificial knee joint, bilateral; Z96.641 Presence of right artificial hip joint; Z98.890 Other specified postprocedural states; Z88.1 Allergy status to other antibiotic agents; Z79.82 Long term (current) use of aspirin; Z79.1 Long term (current) use of non-steroidal anti-inflammatories (NSAID); Z86.73 Personal history of transient ischemic attack (TIA), and cerebral infarction without residual deficits; Z68.42 Body mass index [BMI] 45.0-49.9, adult; Z79.899 Other long term (current) drug therapy
CPT/HCPCS: 99211

== ENCOUNTER 2017-06-09 16:48 | Emergency (ER) | payer MEDICARE, BC ==
[2017-06-09 16:54] VITALS: BP 152/73; PULSE 81; RESP 18; TEMP 97.9
--- NOTE | 2017-06-09 17:25 | XR ---
EXAMINATION TYPE: XR foot complete LT DATE OF EXAM: 06/09/2017 CLINICAL HISTORY: Left foot pain worse this digit TECHNIQUE: Frontal, lateral, and oblique images of the left foot are obtained. COMPARISON: None FINDINGS: There is marked flexion in the toes making evaluation suboptimal at this level. There is p oor visualization of the fifth distal phalanx which is focally demineralized. Cannot exclude acrooste olysis at this level. Small sized superior and inferior calcaneal spurs are noted. Mild diffuse subcu taneous edema is seen. 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 Differential includes Raynaud disease, thermal injury, vascular occlusion and other etiologies. Correlate clinically.
[2017-06-09] MEDS ORDERED: HYDROcodone/APAP 5-325MG 1 EACH TAB PO STA ×2 (17:55→20:02)
--- NOTE | 2017-06-09 18:43 | US ---
EXAMINATION TYPE: US venous doppler duplex LE LT DATE OF EXAM: 06/09/2017 6:38 PM COMPARISON: NONE CLINICAL HISTORY: Pain. Pain and edema left foot. Left knee replacement 2011 SIDE PERFORMED: Left lower extremity venous ultrasound March 12, 2017. TECHNIQUE: The lower extremity deep venous system is examined utilizing real time linear array sonog amilcar with graded compression, doppler sonography and color-flow sonography. VESSELS IMAGED: External Iliac Vein (EIV) Common Femoral Vein Deep Femoral Vein Greater Saphenous Vein * Femoral Vein Popliteal Vein Small Saphenous Vein * Proximal Calf Veins (* superficial vessels) Left Leg: No evidence of DVT Grayscale, color doppler, spectral doppler imaging performed of the deep veins of the left lower extr emity. There is normal flow, compressibility, vascular waveforms. IMPRESSION: No ultrasound evidence for acute DVT in the left lower extremity.
--- NOTE | 2017-06-09 19:05 | ED ---
General Adult HPI - General Chief complaint: Extremity Problem,Nontraumatic Stated complaint: Foot pain Time Seen by Provider: 06/09/17 17:04 Source: patient, RN notes reviewed Mode of arrival: ambulatory Limitations: no limitations - History of Present Illness Initial comments: 57-year-old female presents to the emergency department for chief complaint of left foot pain. Patient states that about a week ago she noticed a crack in the bottom of her foot. Patient states since then she has had pain in her left lower extremity. Patient denies any history of injuring the foot or trauma to the foot. She states the pain is mostly on the lateral side of the left lower extremity and extends up to her knee. Patient states nothing makes it better or worse. Patient states the pain is constant. She states it hurts just as much when walking on it and when lying down without pressure being on the foot. Patient states she noticed some swelling in the left leg. Patient had a stroke last year due to a clot after surgery. She has never had DVTs or pulmonary embolisms. - Related Data Home Medications Medication Instructions Recorded Confirmed Albuterol Sulfate [Ventolin HFA] 2 puff INHALATION RT-Q4H PRN 05/03/16 06/05/16 Ergocalciferol (Vitamin D2) 50,000 unit PO MO 05/03/16 06/05/16 [Vitamin D2] Levothyroxine Sodium [Synthroid] 100 mcg PO DAILY 05/03/16 06/05/16 Venlafaxine HCl [Venlafaxine HCl 37.5 mg PO HS 05/03/16 06/05/16 ER] Venlafaxine HCl [Venlafaxine HCl 150 mg PO HS 05/03/16 06/05/16 ER] Apixaban [Eliquis] 5 mg PO BID 06/05/16 06/05/16 Aspirin 325 mg PO DAILY 06/05/16 06/05/16 Atorvastatin Calcium [Lipitor] 10 mg PO HS 06/05/16 06/05/16 Furosemide [Lasix] 40 mg PO DAILY 06/05/16 06/05/16 Hydrocodone/Acetaminophen [[place] 1 tab PO Q4HR PRN 06/05/16 06/05/16 7.5-325] Levofloxacin [Levaquin] 500 mg PO DAILY 06/05/16 06/05/16 Potassium Chloride [Klor-Con 20] 20 meq PO DAILY 06/05/16 06/05/16 guaiFENesin [Mucinex] 600 mg PO BID 06/05/16 06/05/16 Previous Rx's Medication Instructions Recorded Fluconazole [Diflucan] 150 mg PO ONCE #1 tab 06/09/17 HYDROcodone/APAP 5-325MG [[place] 1 tab PO Q6HR PRN #12 tab 06/09/17 5-325] Sulfamethox-Tmp 800-160Mg [Bactrim 1 tab PO Q12HR #20 tab 06/09/17 DS 800-160 mg] Allergies Allergy/AdvReac Type Severity Reaction Status Date / Time vancomycin Allergy Red Man Verified 06/09/17 16:54 Syndrome Review of Systems ROS Statement: Those systems with pertinent positive or pertinent negative responses have been documented in the HPI. ROS Other: All systems not noted in ROS Statement are negative. Past Medical History Past Medical History: CVA/TIA, Thyroid Disorder Additional Past Medical History / Comment(s): OCCASIONAL LEG SWELLING History of Any Multi-Drug Resistant Organisms: None Reported Past Surgical History: Section, Hysterectomy, Joint Replacement Additional Past Surgical History / Comment(s): MARY KNEE REPLACEMENTS, RT HIP REPLACEMENT, c-secx2 Additional Past Anesthesia/Blood Transfusion Reaction / Comment(s): "HARD TIME WAKING UP" Past Psychological History: Anxiety Smoking Status: Current every day smoker Past Alcohol Use History: Rare Past Drug Use History: None Reported - Past Family History Mother Family Medical History: Cancer Additional Family Medical History / Comment(s): LYMPHOMA General Exam Limitations: no limitations General appearance: alert, in no apparent distress Respiratory exam: Present: normal lung sounds bilaterally. Absent: respiratory distress, wheezes, rales, rhonchi, stridor Cardiovascular Exam: Present: regular rate, normal rhythm, normal heart sounds. Absent: systolic murmur, diastolic murmur, rubs, gallop, clicks Extremities exam: Present: full ROM, tenderness (Tenderness to the distal fifth metatarsal of the left foot accompanied by some swelling of that area.), normal capillary refill (Refill less than 2 seconds.), other (There is a small 0.5 cm ulcer on the fifth distal phalanx of the left foot. Radial pulses 2+ in the left lower extremity. Patient has swelling in the left lower extremity. Leg does not feel warm or any other and is not erythematous.). Absent: calf tenderness Course Vital Signs 06/09/17 16:49 Temperature 97.9 F Pulse Rate 81 Respiratory 18 Rate Blood Pressure 152/73 O2 Sat by Pulse 98 Oximetry Medical Decision Making - Medical Decision Making 57-year-old female presents to the emergency department for a chief complaint of left foot pain. Patient denies any trauma to the area. Patient states there was a crack in her foot about a week ago. There is currently a small 0.5 cm ulcer on the plantar surface of the foot on the fifth distal phalanx. Patient states it was not painful and there is no bleeding. X-ray was obtained which demonstrates a suggestion of acroosteolysis of the fifth distal phalanx. CBC was obtained which is unremarkable. Patient was given 2 [place] in the emergency department. She will take Bactrim as directed. Patient requests Diflucan with this because she gets yeast infections. She also requested something for pain and was given a small prescription of [place] since ibuprofen 800s aren't helping. She will follow up with podiatry in 1-2 days. Disc was sent with the patient so she could show them the x-ray. She will return to the emergency Department if she has any worsening symptoms. - Lab Data Result diagrams: 06/09/17 18:44 Lab Results 06/09/17 Range/Units 18:44 WBC 9.3 (3.8-10.6) k/uL RBC 5.63 H (3.80-5.40) m/uL Hgb 15.6 (11.4-16.0) gm/dL Hct 48.4 H (34.0-46.0) % MCV 85.9 (80.0-100.0) fL MCH 27.7 (25.0-35.0) pg MCHC 32.3 (31.0-37.0) g/dL RDW 15.5 (11.5-15.5) % Plt Count 310 (150-450) k/uL Neutrophils % 51 % Lymphocytes % 37 % Monocytes % 9 % Eosinophils % 1 % Basophils % 0 % Neutrophils # 4.7 (1.3-7.7) k/uL Lymphocytes # 3.5 (1.0-4.8) k/uL Monocytes # 0.9 (0-1.0) k/uL Eosinophils # 0.1 (0-0.7) k/uL Basophils # 0.0 (0-0.2) k/uL Disposition Clinical Impression: Ulcer Disposition: HOME SELF-CARE Condition: Good Instructions: Pressure Ulcer (ED) Additional Instructions: Please take Bactrim as directed. Take Diflucan only if you develop a yeast infection. Follow-up with podiatry in 1-2 days. Please return to the emergency department if you have any worsening symptoms. Prescriptions: Fluconazole [Diflucan] 150 mg PO ONCE #1 tab HYDROcodone/APAP 5-325MG [[place] 5-325] 1 tab PO Q6HR PRN #12 tab PRN Reason: Pain Sulfamethox-Tmp 800-160Mg [Bactrim DS 800-160 mg] 1 tab PO Q12HR #20 tab Referrals: Pretty Guthrie MD [Primary Care Provider] - 1-2 days Aramis Daniels DPM [STAFF PHYSICIAN] - 1-2 days Time of Disposition: 20:08
[2017-06-09 19:07] LABS: Basophils % (A) 0 %; Eosinophils # (A) 0.1 k/uL (0-0.7); Eosinophils % (A) 1 %; HCT 48.4 % (34.0-46.0); HGB 15.6 gm/dL (11.4-16.0); Lymphocytes # (A) 3.5 k/uL (1.0-4.8); Lymphocytes % (A) 37 %; MCH 27.7 pg (25.0-35.0); MCHC 32.3 g/dL (31.0-37.0); MCV 85.9 fL (80.0-100.0); Mean Platelet Volume 7.4; Monocytes # (A) 0.9 k/uL (0-1.0); Monocytes % (A) 9 %; Neutrophils # (A) 4.7 k/uL (1.3-7.7); Neutrophils % (A) 51 %; Platelet Count 310 k/uL (150-450); RBC 5.63 m/uL (3.80-5.40); RDW 15.5 % (11.5-15.5); WBC 9.3 k/uL (3.8-10.6)
== END 2017-06-09 20:23 | disposition home or self-care (01) ==
LOC: EC 16:48
DX: L97.529 Non-pressure chronic ulcer of other part of left foot with unspecified severity (principal); E07.9 Disorder of thyroid, unspecified; F41.9 Anxiety disorder, unspecified; F17.200 Nicotine dependence, unspecified, uncomplicated; Z86.73 Personal history of transient ischemic attack (TIA), and cerebral infarction without residual deficits; Z96.653 Presence of artificial knee joint, bilateral; Z96.641 Presence of right artificial hip joint; Z79.01 Long term (current) use of anticoagulants; Z79.82 Long term (current) use of aspirin; Z79.899 Other long term (current) drug therapy; Z88.1 Allergy status to other antibiotic agents
CPT/HCPCS: 36415; 85025; 99284

== ENCOUNTER → 2017-07-16 | Outpatient (CLI) | payer BC ==
--- NOTE | 2017-07-16 13:07 | XR ---
EXAMINATION TYPE: XR foot complete LT DATE OF EXAM: 07/16/2017 CLINICAL HISTORY: Lump near fifth toe. Forefoot osteomyelitis per order. TECHNIQUE: Frontal, lateral, and oblique images of the left foot are obtained. COMPARISON: Left foot x-ray June 09, 2017. FINDINGS: There is curvilinear soft tissue prominence possible focal swelling or hematoma versus mass lateral to fifth metatarsal head. This is unchanged from prior study. No suspicious cortical destruc tion or periosteal reaction is seen. There is no acute fracture/dislocation evident in the left foot . There is mild to moderate joint space loss first metatarsophalangeal joint. There is marked flexion in the toes makes evaluation at this level suboptimal. The overlying soft tissue appears unremarkabl e. IMPRESSION: There is no convincing radiographic evidence for acute osteomyelitis in the left foot.
--- NOTE | 2017-07-16 13:35 | NM ---
EXAMINATION TYPE: NM bone 3 phase DATE OF EXAM: 07/16/2017 COMPARISON: Same day left foot x-ray and older study June 09, 2017. HISTORY: Left forefoot osteomyelitis per order. Focal swelling near fifth digit. Triple phase bone scintigraphy was performed following the injection of 25.7 mCi Tc 99m MDP. Immedia te images and 5.25 hours post injection images acquired. Three-phase imaging of the bilateral ankles and feet are acquired. FINDINGS: There is no suspicious increased radiotracer uptake to the left ankle and foot versus opposite right side on dynamic arterial or soft tissue phase images. Delayed images show no suspicious forefoot upta ke in the left foot versus opposite right foot. IMPRESSION: No scintigraphic evidence of active infection or osteomyelitis in the left forefoot lateral aspect at area of clinical concern.
== END | disposition home or self-care (01) ==
LOC: RADNMMAIN 07:35
PROVIDERS: ATTEND Podiatrist Foot & Ankle Surgery
DX: M86.8X7 Other osteomyelitis, ankle and foot (principal)
CPT/HCPCS: 73630; 78315; A9503

== ENCOUNTER → 2017-08-27 | Outpatient (CLI) | payer BC ==
--- NOTE | 2017-08-28 09:45 | MM ---
Reason for exam: screening (asymptomatic). Last mammogram was performed 2 years and 2 months ago. History: Patient is postmenopausal. Family history of breast cancer in maternal grandmother. Physical Findings: A clinical breast exam by your physician is recommended on an annual basis and results should be correlated with mammographic findings. MG 3D Screening Mammo W/Cad Bilateral CC and MLO view(s) were taken. Prior study comparison: June 22, 2015, bilateral MG 3d screening mammo w/cad. May 04, 2014, bilateral MG screening mammo w CAD. There are scattered fibroglandular densities. There is no discrete abnormality. No significant changes when compared with prior studies. ASSESSMENT: Negative, BI-RAD 1 RECOMMENDATION: Routine screening mammogram of both breasts in 1 year.
== END | disposition home or self-care (01) ==
LOC: RADMAMWWP 09:58
PROVIDERS: ATTEND Family Medicine
DX: Z12.31 Encounter for screening mammogram for malignant neoplasm of breast (principal)
CPT/HCPCS: 77063; 77067

== ENCOUNTER → 2017-09-19 | Outpatient (CLI) | payer BC ==
--- NOTE | 2017-09-19 14:11 | MR ---
MR left foot with and without contrast HISTORY: Osteomyelitis, pain and swelling x2 months Multiplanar multisequence and postcontrast images obtained through the left foot following 11.5 cc Ga davist IV. Correlation plain film 07/16/2017 Subcutaneous edema is present. There is no focal abscess. There is no periosteal reaction. The level of the fifth metatarsal head, there is some local soft tissue thickening which may represent a local callus. Some hyperintensity on T2 weighted sequences, postcontrast images is present laterally at thi s level, difficult to exclude some intermediate signal on T1-weighted sequences, sagittal image #4 at this level. Osteochondral defect is present at the talus level of the tibiotalar joint, subchondral marrow signal changes are present within the talus ankle mortise. Lesion measures approximately 12 mm x 8 mm. Achi lles tendon. The intact although evaluation somewhat limited. Peroneal longus and brevis tendons, fle xor and extensor tendons are intact. There are some arthropathy changes at the intertarsal joints. Small subchondral geode thought present at the dorsal aspect of the middle cuneiform. Small plantar calcaneal spur suspected. IMPRESSION: Difficult to exclude some osteomyelitis at the level of the fifth metatarsal head as desc ribed. Correlate to exclude cellulitis. Osteochondral defect at the ankle mortise, osteoarthritis.
== END | disposition home or self-care (01) ==
LOC: RADMRIMAIN 11:01
PROVIDERS: ATTEND Podiatrist Foot & Ankle Surgery
DX: M19.072 Primary osteoarthritis, left ankle and foot (principal); M21.962 Unspecified acquired deformity of left lower leg; G90.529 Complex regional pain syndrome I of unspecified lower limb
CPT/HCPCS: 73720; A9581

== ENCOUNTER → 2017-09-20 | Outpatient (CLI) | payer BC ==
[2017-09-20 13:55] LABS: Basophils % (A) 0 %; Eosinophils % (A) 0 %; HCT 49.4 % (34.0-46.0); HGB 15.9 gm/dL (11.4-16.0); Lymphocytes # (A) 2.7 k/uL (1.0-4.8); Lymphocytes % (A) 34 %; MCH 28.7 pg (25.0-35.0); MCHC 32.3 g/dL (31.0-37.0); MCV 88.8 fL (80.0-100.0); Mean Platelet Volume 7.1; Monocytes # (A) 0.7 k/uL (0-1.0); Monocytes % (A) 8 %; Neutrophils # (A) 4.4 k/uL (1.3-7.7); Neutrophils % (A) 55 %; Platelet Count 298 k/uL (150-450); RBC 5.56 m/uL (3.80-5.40); RDW 15.2 % (11.5-15.5); WBC 8.1 k/uL (3.8-10.6)
[2017-09-20 15:43] LABS: Erythrocyte Sedimentation Rate 8 mm/hr (0-20)
== END | disposition home or self-care (01) ==
LOC: LABWHC1 12:54
PROVIDERS: ATTEND Podiatrist Foot & Ankle Surgery
DX: L08.9 Local infection of the skin and subcutaneous tissue, unspecified (principal)
CPT/HCPCS: 36415; 85025; 85652; 86140

== ENCOUNTER → 2017-10-15 | Outpatient (CLI) | payer BC ==
[2017-10-15 11:35] LABS: Basophils % (A) 0 %; Eosinophils # (A) 0.1 k/uL (0-0.7); Eosinophils % (A) 1 %; HCT 51.3 % (34.0-46.0); HGB 16.4 gm/dL (11.4-16.0); Hypochromasia Slight; Lymphocytes % (A) 26 %; MCH 28.7 pg (25.0-35.0); MCHC 31.9 g/dL (31.0-37.0); MCV 90.2 fL (80.0-100.0); Mean Platelet Volume 7.1; Monocytes # (A) 0.6 k/uL (0-1.0); Monocytes % (A) 8 %; Neutrophils # (A) 4.7 k/uL (1.3-7.7); Neutrophils % (A) 62 %; Platelet Count 283 k/uL (150-450); RBC 5.69 m/uL (3.80-5.40); RDW 14.7 % (11.5-15.5); WBC 7.6 k/uL (3.8-10.6)
[2017-10-15 11:47] LABS: ALT 17 U/L (9-52); AST 21 U/L (14-36); Albumin 4.3 g/dL (3.5-5.0); Alkaline Phosphatase 104 U/L (38-126); Anion Gap 7 mmol/L; Blood Urea Nitrogen 15 mg/dL (7-17); C Reactive Protein 12.1 mg/L (<10.0); Calcium 9.3 mg/dL (8.4-10.2); Carbon Dioxide 29 mmol/L (22-30); Chloride 104 mmol/L (98-107); Glucose 97 mg/dL (74-99); Potassium 4.2 mmol/L (3.5-5.1); Sodium 140 mmol/L (137-145); Total Bilirubin 0.8 mg/dL (0.2-1.3); Total Protein 7.1 g/dL (6.3-8.2)
[2017-10-15 13:03] LABS: Erythrocyte Sedimentation Rate 8 mm/hr (0-20)
== END | disposition home or self-care (01) ==
LOC: LABWHC1 11:10
PROVIDERS: ATTEND Internal Medicine Infectious Disease
DX: L03.116 Cellulitis of left lower limb (principal)
CPT/HCPCS: 36415; 80053; 85025; 85652; 86140

== ENCOUNTER → 2017-12-13 | Outpatient (CLI) | payer BC ==
--- NOTE | 2017-12-13 16:52 | XR ---
EXAMINATION TYPE: XR shoulder complete RT DATE OF EXAM: 12/13/2017 COMPARISON: NONE HISTORY: Shoulder pain TECHNIQUE: 3 views FINDINGS: I see no fracture nor dislocation. Glenohumeral joint is anatomic. There are no pathologic calcifications. IMPRESSION: Negative right shoulder exam.
== END | disposition home or self-care (01) ==
LOC: RADXRMAIN 16:16
PROVIDERS: ATTEND Family Medicine
DX: M25.511 Pain in right shoulder (principal)

== ENCOUNTER 2017-12-30 22:01 | Observation (INO) | payer BC ==
[2017-12-30] MEDS ORDERED: methylPREDNISolone SOD SUCCI 125 MG/2 ML VIAL IV STA (22:45)
[2017-12-30] MEDS ORDERED: IPRATROPIUM-ALBUTEROL 3 ML NEB INHALATION STA (22:45)
--- NOTE | 2017-12-30 22:48 | ED ---
SOB HPI - General Chief Complaint: Shortness of Breath Stated Complaint: cough/JACK Time Seen by Provider: 12/30/17 22:28 Source: patient Mode of arrival: ambulatory Limitations: no limitations - History of Present Illness Initial Comments: Patient is a 57-year-old female presenting for shortness breath and cough. Patient states that his been intermittent for the last 3 weeks and she was scheduled to see her PCP tomorrow but the symptoms are getting much worse and she decided to come in. She denies any fevers but admits to some chills and states that because she has been coughing so much, she started having some sharp substernal chest pain which is intermittent and worse when she coughed. She denied any nausea/vomiting/diarrhea or congestion, runny nose. - Related Data Home Medications Medication Instructions Recorded Confirmed Albuterol Sulfate [Ventolin HFA] 2 puff INHALATION RT-Q4H PRN 05/03/16 06/05/16 Ergocalciferol (Vitamin D2) 50,000 unit PO MO 05/03/16 06/05/16 [Vitamin D2] Levothyroxine Sodium [Synthroid] 100 mcg PO DAILY 05/03/16 06/05/16 Venlafaxine HCl [Venlafaxine HCl 37.5 mg PO HS 05/03/16 06/05/16 ER] Venlafaxine HCl [Venlafaxine HCl 150 mg PO HS 05/03/16 06/05/16 ER] Apixaban [Eliquis] 5 mg PO BID 06/05/16 06/05/16 Aspirin 325 mg PO DAILY 06/05/16 06/05/16 Atorvastatin Calcium [Lipitor] 10 mg PO HS 06/05/16 06/05/16 Furosemide [Lasix] 40 mg PO DAILY 06/05/16 06/05/16 Hydrocodone/Acetaminophen [[place] 1 tab PO Q4HR PRN 06/05/16 06/05/16 7.5-325] Levofloxacin [Levaquin] 500 mg PO DAILY 06/05/16 06/05/16 Potassium Chloride [Klor-Con 20] 20 meq PO DAILY 06/05/16 06/05/16 guaiFENesin [Mucinex] 600 mg PO BID 06/05/16 06/05/16 Previous Rx's Medication Instructions Recorded Fluconazole [Diflucan] 150 mg PO ONCE #1 tab 06/09/17 HYDROcodone/APAP 5-325MG [[place] 1 tab PO Q6HR PRN #12 tab 06/09/17 5-325] Sulfamethox-Tmp 800-160Mg [Bactrim 1 tab PO Q12HR #20 tab 06/09/17 DS 800-160 mg] Albuterol Inhaler [Ventolin Hfa 1 - 2 puff INHALATION Q6HR PRN #1 12/31/17 Inhaler] inhaler Codeine Phosphate/Guaifenesin 10 ml PO Q6HR PRN 3 Days #180 ml 12/31/17 [Cheratussin AC Syrup] Doxycycline Monohydrate [Monodox] 100 mg PO Q12HR #14 cap 12/31/17 predniSONE 50 mg PO DAILY #4 tablet 12/31/17 Allergies Allergy/AdvReac Type Severity Reaction Status Date / Time vancomycin Allergy Red Man Verified 12/30/17 22:23 Syndrome Review of Systems ROS Statement: Those systems with pertinent positive or pertinent negative responses have been documented in the HPI. Constitutional: Positive for chills, fatigue and negative for fever. HENT: Negative for congestion. Respiratory: Negative for chest tightness, and wheezing. Positive for cough and shortness breath Cardiovascular: Positive for chest pain and negative for palpitations. Gastrointestinal: Negative for abdominal pain. Negative for abdominal distention , diarrhea, nausea and vomiting. Genitourinary: Negative for dysuria. Musculoskeletal: Negative for back pain, neck pain and neck stiffness. Skin: Negative for color change. Neurological: Negative for dizziness, speech difficulty, weakness and light- headedness. Psychiatric/Behavioral: Negative for agitation and confusion. Negative for anxiety ROS Other: All systems not noted in ROS Statement are negative. Past Medical History Past Medical History: CVA/TIA, Thyroid Disorder Additional Past Medical History / Comment(s): OCCASIONAL LEG SWELLING History of Any Multi-Drug Resistant Organisms: None Reported Past Surgical History: Section, Hysterectomy, Joint Replacement Additional Past Surgical History / Comment(s): MARY KNEE REPLACEMENTS, RT HIP REPLACEMENT, c-secx2 Additional Past Anesthesia/Blood Transfusion Reaction / Comment(s): "HARD TIME WAKING UP" Past Psychological History: Anxiety Smoking Status: Current every day smoker Past Alcohol Use History: Rare Past Drug Use History: None Reported - Past Family History Mother Family Medical History: Cancer Additional Family Medical History / Comment(s): LYMPHOMA General Exam - General Exam Comments Initial Comments: Constitutional: Pt is oriented to person, place, and time. Pt appears well- developed and well-nourished. No distress. HENT: Head: Normocephalic and atraumatic. Eyes: EOM are normal. Neck: Normal range of motion. Neck supple. Cardiovascular: Normal rate, regular rhythm, S1 normal, S2 normal and normal heart sounds. Exam reveals no gallop and no friction rub. No murmur heard. Pulmonary/Chest: Effort normal. No tachypnea and no bradypnea. No respiratory distress. No or rales noted. Diffuse wheezes heard in all lung manrique Abdominal: Soft. Bowel sounds are normal. Pt exhibits no shifting dullness, no distension, no pulsatile liver, no fluid wave, no abdominal bruit and no ascites. There is no tenderness. There is no rigidity, no rebound, no guarding, no tenderness at McBurney's point and negative Deng's sign. Musculoskeletal: Normal range of motion. Neurological: Pt is alert and oriented to person, place, and time. No cranial nerve deficit. Skin: Skin is warm and dry. No rash noted. Pt is not diaphoretic. No erythema. No pallor. Psychiatric: Pt has a normal mood and affect. Pt behavior is normal. Thought content normal. Limitations: no limitations Course Vital Signs 12/30/17 12/30/17 12/30/17 22:20 22:57 23:15 Temperature 98.7 F Pulse Rate 81 80 99 Respiratory 18 Rate Blood Pressure 121/76 O2 Sat by Pulse 95 Oximetry Medical Decision Making - Medical Decision Making Laboratory studies showed that there is no significant leukocytosis and electrolytes are relatively within normal limits. Patient was given a breathing treatment as as well as steroids and stated that the respiratory complaints were significantly improved. Patient was also ambulated and did not become hypoxic and maintain an oxygen saturation greater than 93%. From a cardiac standpoint, EKG showed no concerning findings for ACS and troponin was negative. BNP was also elevated and chest x-ray was consistent with chronic lung disease and did not show any infiltrates. Because of this, it is felt the patient could be safely discharged and she was given a prescription for steroids , antibiotics, albuterol and antitussives medications. His explained that the patient's signs and symptoms were consistent with a viral bronchitis. Explained all labs and diagnostic test results and that we will discharge the patient home and patient is to follow up with PCP in 1-2 days and return to the ED if symptoms worsen. Pt is agreeable to plan. - Lab Data Result diagrams: 12/30/17 23:05 12/30/17 23:05 Lab Results 12/30/17 12/30/17 12/30/17 Range/Units 23:05 23:05 23:05 WBC 11.7 H (3.8-10.6) k/uL RBC 4.91 (3.80-5.40) m/uL Hgb 14.1 (11.4-16.0) gm/dL Hct 45.6 (34.0-46.0) % MCV 92.9 (80.0-100.0) fL MCH 28.8 (25.0-35.0) pg MCHC 31.0 (31.0-37.0) g/dL RDW 14.9 (11.5-15.5) % Plt Count 363 (150-450) k/uL Neutrophils % 67 % Lymphocytes % 20 % Monocytes % 9 % Eosinophils % 1 % Basophils % 0 % Neutrophils # 7.8 H (1.3-7.7) k/uL Lymphocytes # 2.3 (1.0-4.8) k/uL Monocytes # 1.1 H (0-1.0) k/uL Eosinophils # 0.1 (0-0.7) k/uL Basophils # 0.0 (0-0.2) k/uL PT (9.0-12.0) sec INR (<1.2) APTT (22.0-30.0) sec Sodium 141 (137-145) mmol/L Potassium 4.0 (3.5-5.1) mmol/L Chloride 108 H (98-107) mmol/L Carbon Dioxide 28 (22-30) mmol/L Anion Gap 5 mmol/L BUN 19 H (7-17) mg/dL Creatinine 0.87 (0.52-1.04) mg/dL Est GFR (CKD-EPI)AfAm 86 (>60 ml/min/1.73 sqM) Est GFR (CKD-EPI)NonAf 74 (>60 ml/min/1.73 sqM) Glucose 121 H (74-99) mg/dL Calcium 8.7 (8.4-10.2) mg/dL Magnesium 2.2 (1.6-2.3) mg/dL Total Bilirubin 0.5 (0.2-1.3) mg/dL AST 18 (14-36) U/L ALT 9 (9-52) U/L Alkaline Phosphatase 91 (38-126) U/L Troponin I (0.000-0.034) ng/mL NT-Pro-B Natriuret Pep 205 pg/mL Total Protein 6.9 (6.3-8.2) g/dL Albumin 3.6 (3.5-5.0) g/dL 12/30/17 12/30/17 Range/Units 23:05 23:05 WBC (3.8-10.6) k/uL RBC (3.80-5.40) m/uL Hgb (11.4-16.0) gm/dL Hct (34.0-46.0) % MCV (80.0-100.0) fL MCH (25.0-35.0) pg MCHC (31.0-37.0) g/dL RDW (11.5-15.5) % Plt Count (150-450) k/uL Neutrophils % % Lymphocytes % % Monocytes % % Eosinophils % % Basophils % % Neutrophils # (1.3-7.7) k/uL Lymphocytes # (1.0-4.8) k/uL Monocytes # (0-1.0) k/uL Eosinophils # (0-0.7) k/uL Basophils # (0-0.2) k/uL PT 10.4 (9.0-12.0) sec INR 1.1 (<1.2) APTT 23.7 (22.0-30.0) sec Sodium (137-145) mmol/L Potassium (3.5-5.1) mmol/L Chloride (98-107) mmol/L Carbon Dioxide (22-30) mmol/L Anion Gap mmol/L BUN (7-17) mg/dL Creatinine (0.52-1.04) mg/dL Est GFR (CKD-EPI)AfAm (>60 ml/min/1.73 sqM) Est GFR (CKD-EPI)NonAf (>60 ml/min/1.73 sqM) Glucose (74-99) mg/dL Calcium (8.4-10.2) mg/dL Magnesium (1.6-2.3) mg/dL Total Bilirubin (0.2-1.3) mg/dL AST (14-36) U/L ALT (9-52) U/L Alkaline Phosphatase (38-126) U/L Troponin I <0.012 (0.000-0.034) ng/mL NT-Pro-B Natriuret Pep pg/mL Total Protein (6.3-8.2) g/dL Albumin (3.5-5.0) g/dL - EKG Data EKG Comments: EKG shows normal sinus rhythm with a rate of 80 bpm, HI interval 162, QRS 120, QTC 454. There is ST segment elevation in a portion of lead V1 measuring approximately [address] segment elevation in lead V3 measuring approximately 2 mm. This appears to be wandering baseline. Neuro no other significant ST elevations or depressions. Disposition Clinical Impression: Bronchitis Disposition: HOME SELF-CARE Condition: Good Instructions: Acute Bronchitis (ED) Prescriptions: Albuterol Inhaler [Ventolin Hfa Inhaler] 1 - 2 puff INHALATION Q6HR PRN #1 inhaler PRN Reason: Wheezing Codeine Phosphate/Guaifenesin [Cheratussin AC Syrup] 10 ml PO Q6HR PRN 3 Days # 180 ml PRN Reason: Cough Doxycycline Monohydrate [Monodox] 100 mg PO Q12HR #14 cap predniSONE 50 mg PO DAILY #4 tablet Is patient prescribed a controlled substance at d/c from ED?: No Referrals: Pretty Guthrie MD [Primary Care Provider] - 1-2 days Time of Disposition: 00:12
[2017-12-30 23:17] LABS: Basophils % (A) 0 %; Eosinophils # (A) 0.1 k/uL (0-0.7); Eosinophils % (A) 1 %; HCT 45.6 % (34.0-46.0); HGB 14.1 gm/dL (11.4-16.0); Lymphocytes # (A) 2.3 k/uL (1.0-4.8); Lymphocytes % (A) 20 %; MCH 28.8 pg (25.0-35.0); MCV 92.9 fL (80.0-100.0); Monocytes # (A) 1.1 k/uL (0-1.0); Monocytes % (A) 9 %; Neutrophils # (A) 7.8 k/uL (1.3-7.7); Neutrophils % (A) 67 %; Platelet Count 363 k/uL (150-450); RBC 4.91 m/uL (3.80-5.40); RDW 14.9 % (11.5-15.5); WBC 11.7 k/uL (3.8-10.6)
[2017-12-30 23:26] LABS: INR 1.1 (<1.2); Partial Thromboplastin Time 23.7 sec (22.0-30.0); Prothrombin Time 10.4 sec (9.0-12.0)
--- NOTE | 2017-12-30 23:30 | XR ---
EXAMINATION TYPE: XR chest 2V DATE OF EXAM: 12/30/2017 COMPARISON: 06/05/2016 HISTORY: Cough TECHNIQUE: Frontal and lateral views of the chest are obtained. FINDINGS: There is some coarsening of interstitial markings. Heart size is normal. Thoracic aorta is atheromatous. There is no pleural effusion. Bony thorax is intact. IMPRESSION: Interstitial fibrosis. There is clearing of the moderate left pleural effusion compared to last exam. No heart failure
[2017-12-30 23:44] LABS: Albumin 3.6 g/dL (3.5-5.0); Calcium 8.7 mg/dL (8.4-10.2); Magnesium 2.2 mg/dL (1.6-2.3); Total Bilirubin 0.5 mg/dL (0.2-1.3); Total Protein 6.9 g/dL (6.3-8.2)
[2017-12-31] MEDS ORDERED: ACETAMINOPHEN TAB 325 MG TAB PO STA (00:09)
--- NOTE | 2017-12-31 00:46 | ED ---
Medical Decision Making - Medical Decision Making After original ED note was written, the nurse was obtaining repeat vital signs for discharge and the patient was noted to be hypoxic at 87-89%. She was put on supplemental oxygen and continued to remain hypoxic. However, she showed no evidence of respiratory distress. Nonetheless, because of the hypoxia, it was determined that the patient will be best served if she was placed in observation for continued breathing treatments as well as initiation of antibiotics. She was started on doxycycline by mouth here in the emergency department.Explained all labs and diagnostic test results and that we will admit patient to hospital. Pt is agreeable to plan and case has been discussed with Dr. Arredondo and they agree to accept the pt. - Lab Data Result diagrams: 12/30/17 23:05 12/30/17 23:05 Lab Results 12/30/17 12/30/17 12/30/17 Range/Units 23:05 23:05 23:05 WBC 11.7 H (3.8-10.6) k/uL RBC 4.91 (3.80-5.40) m/uL Hgb 14.1 (11.4-16.0) gm/dL Hct 45.6 (34.0-46.0) % MCV 92.9 (80.0-100.0) fL MCH 28.8 (25.0-35.0) pg MCHC 31.0 (31.0-37.0) g/dL RDW 14.9 (11.5-15.5) % Plt Count 363 (150-450) k/uL Neutrophils % 67 % Lymphocytes % 20 % Monocytes % 9 % Eosinophils % 1 % Basophils % 0 % Neutrophils # 7.8 H (1.3-7.7) k/uL Lymphocytes # 2.3 (1.0-4.8) k/uL Monocytes # 1.1 H (0-1.0) k/uL Eosinophils # 0.1 (0-0.7) k/uL Basophils # 0.0 (0-0.2) k/uL PT (9.0-12.0) sec INR (<1.2) APTT (22.0-30.0) sec Sodium 141 (137-145) mmol/L Potassium 4.0 (3.5-5.1) mmol/L Chloride 108 H (98-107) mmol/L Carbon Dioxide 28 (22-30) mmol/L Anion Gap 5 mmol/L BUN 19 H (7-17) mg/dL Creatinine 0.87 (0.52-1.04) mg/dL Est GFR (CKD-EPI)AfAm 86 (>60 ml/min/1.73 sqM) Est GFR (CKD-EPI)NonAf 74 (>60 ml/min/1.73 sqM) Glucose 121 H (74-99) mg/dL Calcium 8.7 (8.4-10.2) mg/dL Magnesium 2.2 (1.6-2.3) mg/dL Total Bilirubin 0.5 (0.2-1.3) mg/dL AST 18 (14-36) U/L ALT 9 (9-52) U/L Alkaline Phosphatase 91 (38-126) U/L Troponin I (0.000-0.034) ng/mL NT-Pro-B Natriuret Pep 205 pg/mL Total Protein 6.9 (6.3-8.2) g/dL Albumin 3.6 (3.5-5.0) g/dL 12/30/17 12/30/17 Range/Units 23:05 23:05 WBC (3.8-10.6) k/uL RBC (3.80-5.40) m/uL Hgb (11.4-16.0) gm/dL Hct (34.0-46.0) % MCV (80.0-100.0) fL MCH (25.0-35.0) pg MCHC (31.0-37.0) g/dL RDW (11.5-15.5) % Plt Count (150-450) k/uL Neutrophils % % Lymphocytes % % Monocytes % % Eosinophils % % Basophils % % Neutrophils # (1.3-7.7) k/uL Lymphocytes # (1.0-4.8) k/uL Monocytes # (0-1.0) k/uL Eosinophils # (0-0.7) k/uL Basophils # (0-0.2) k/uL PT 10.4 (9.0-12.0) sec INR 1.1 (<1.2) APTT 23.7 (22.0-30.0) sec Sodium (137-145) mmol/L Potassium (3.5-5.1) mmol/L Chloride (98-107) mmol/L Carbon Dioxide (22-30) mmol/L Anion Gap mmol/L BUN (7-17) mg/dL Creatinine (0.52-1.04) mg/dL Est GFR (CKD-EPI)AfAm (>60 ml/min/1.73 sqM) Est GFR (CKD-EPI)NonAf (>60 ml/min/1.73 sqM) Glucose (74-99) mg/dL Calcium (8.4-10.2) mg/dL Magnesium (1.6-2.3) mg/dL Total Bilirubin (0.2-1.3) mg/dL AST (14-36) U/L ALT (9-52) U/L Alkaline Phosphatase (38-126) U/L Troponin I <0.012 (0.000-0.034) ng/mL NT-Pro-B Natriuret Pep pg/mL Total Protein (6.3-8.2) g/dL Albumin (3.5-5.0) g/dL Disposition Clinical Impression: Bronchitis, Hypoxia, COPD exacerbation Disposition: ADMITTED IP TO THIS HOSP Condition: Fair Instructions: Acute Bronchitis (ED) Prescriptions: Albuterol Inhaler [Ventolin Hfa Inhaler] 1 - 2 puff INHALATION Q6HR PRN #1 inhaler PRN Reason: Wheezing Codeine Phosphate/Guaifenesin [Cheratussin AC Syrup] 10 ml PO Q6HR PRN 3 Days # 180 ml PRN Reason: Cough Doxycycline Monohydrate [Monodox] 100 mg PO Q12HR #14 cap predniSONE 50 mg PO DAILY #4 tablet Referrals: Pretty Guhtrie MD [Primary Care Provider] - 1-2 days Decision to Admit Reason: Admit from EC Decision Date: 12/31/17 Decision Time: 00:45
[2017-12-31] MEDS: PROMETHAZ-COD 6.25-10 MG/5 ML 5 ML CUP PO PRN ×3 (00:53→20:57)
[2017-12-31] MEDS: DOXYCYCLINE 100 MG CAP PO SCH ×3 (01:01→20:52)
[2017-12-31] MEDS ORDERED: IPRATROPIUM-ALBUTEROL 3 ML NEB INHALATION PRN (01:40)
--- NOTE | 2017-12-31 02:11 | P.HPIM ---
History of Present Illness H&P Date: 12/31/17 Chief Complaint: Coughing and shortness of breath 57-year-old female with history of COPD. Patient presented with 3 week history of coughing productive of whitish sometimes green sputum. Denies any fevers or chills. Associated with shortness of breath getting worse over the past 3 weeks. She went to see her doctor after the weekend however she felt like her shortness of breath is worsening and was affecting her daily activity. She cut back on smoking over the past week or so where she normally smokes 2 packs a day down to a few cigarettes as she is unable to smoke. Patient also reports pleuritic chest pain with coughing. In the ED she was about to be discharged home breathing treatments and steroids however she became hypoxic for which she was admitted under observation. Patient denies any recent traveling or any sick contacts. Patient denies any abdominal pain nausea vomiting any changes in her bowel or urinary habits. Denies any GI bleeding. Patient was not sure of her list of medications, Eliquis need to be verified with her pharmacy. Currently patient feels comfortable breathing better denies any chest pain. Review of Systems Pertinent positives as noted in HPI. All other systems were reviewed and are negative Past Medical History Past Medical History: CVA/TIA, Thyroid Disorder Additional Past Medical History / Comment(s): OCCASIONAL LEG SWELLING History of Any Multi-Drug Resistant Organisms: None Reported Past Surgical History: Section, Hysterectomy, Joint Replacement Additional Past Surgical History / Comment(s): MARY KNEE REPLACEMENTS, RT HIP REPLACEMENT, [id number] Additional Past Anesthesia/Blood Transfusion Reaction / Comment(s): "HARD TIME WAKING UP" Past Psychological History: Anxiety Smoking Status: Current every day smoker Past Alcohol Use History: Rare Past Drug Use History: None Reported - Past Family History Mother Family Medical History: Cancer Additional Family Medical History / Comment(s): LYMPHOMA Medications and Allergies Home Medications Medication Instructions Recorded Confirmed Type Albuterol Sulfate [Ventolin HFA] 2 puff INHALATION RT-Q4H PRN 05/03/16 06/05/16 History Ergocalciferol (Vitamin D2) 50,000 unit PO MO 05/03/16 06/05/16 History [Vitamin D2] Levothyroxine Sodium [Synthroid] 100 mcg PO DAILY 05/03/16 06/05/16 History Venlafaxine HCl [Venlafaxine HCl 37.5 mg PO HS 05/03/16 06/05/16 History ER] Venlafaxine HCl [Venlafaxine HCl 150 mg PO HS 05/03/16 06/05/16 History ER] Apixaban [Eliquis] 5 mg PO BID 06/05/16 06/05/16 History Aspirin 325 mg PO DAILY 06/05/16 06/05/16 History Atorvastatin Calcium [Lipitor] 10 mg PO HS 06/05/16 06/05/16 History Furosemide [Lasix] 40 mg PO DAILY 06/05/16 06/05/16 History Hydrocodone/Acetaminophen [[place] 1 tab PO Q4HR PRN 06/05/16 06/05/16 History 7.5-325] Levofloxacin [Levaquin] 500 mg PO DAILY 06/05/16 06/05/16 History Potassium Chloride [Klor-Con 20] 20 meq PO DAILY 06/05/16 06/05/16 History guaiFENesin [Mucinex] 600 mg PO BID 06/05/16 06/05/16 History Fluconazole [Diflucan] 150 mg PO ONCE #1 tab 06/09/17 Rx HYDROcodone/APAP 5-325MG [[place] 1 tab PO Q6HR PRN #12 tab 06/09/17 Rx 5-325] Sulfamethox-Tmp 800-160Mg [Bactrim 1 tab PO Q12HR #20 tab 06/09/17 Rx DS 800-160 mg] Albuterol Inhaler [Ventolin Hfa 1 - 2 puff INHALATION Q6HR PRN #1 12/31/17 Rx Inhaler] inhaler Codeine Phosphate/Guaifenesin 10 ml PO Q6HR PRN 3 Days #180 ml 12/31/17 Rx [Cheratussin AC Syrup] Doxycycline Monohydrate [Monodox] 100 mg PO Q12HR #14 cap 12/31/17 Rx predniSONE 50 mg PO DAILY #4 tablet 12/31/17 Rx Allergies Allergy/AdvReac Type Severity Reaction Status Date / Time vancomycin Allergy Red Man Verified 12/30/17 22:23 Syndrome Physical Exam Vitals: Vital Signs Temp Pulse Resp BP Pulse Ox 12/31/17 00:25 97.1 F L 98 19 129/74 96 12/30/17 23:15 99 12/30/17 22:57 80 12/30/17 22:20 98.7 F 81 18 121/76 95 Intake and Output 12/30/17 12/30/17 12/31/17 14:59 22:59 06:59 Other: Weight 153.768 kg Constitutional: No acute distress, conversant, pleasant, obese Eyes: Anicteric sclerae, moist conjunctiva, no lid-lag Pupils equal round reactive to light ENMT: NC/AT Oropharynx clear, no erythema, exudates Neck: Supple, FROM, no masses, or JVD No carotid bruits No thyromegaly Lungs: Decreased breath sounds throughout, prolonged expiratory phase, some end expiratory wheezes Clear to percussion Normal respiratory effort, no accessory muscle use Cardiovascular: Heart regular in rate and rhythm, Systolic murmurs, no gallops, or rubs No peripheral edema Abdominal: Soft Nontender, no guarding, rebound or rigidity Abdomen moving with respiration Normoactive bowel sounds No hepatomegaly, No splenomegaly No palpable mass No abdominal wall hernia noted Skin: Normal temperature, tone, texture, turgor No induration No subcutaneous nodules No rash, lesions No ulcers Extremities: No digital cyanosis No clubbing Pedal pulses intact and symmetrical Radial pulses intact and symmetrical No calf tenderness Psychiatric: Alert and oriented to person, place and time Appropriate affect fair judgment Neuro Muscles Strength 5/5 in all 4 extremities Sensation to light touch grossly present throughout Cranial nerves II-XII grossly intact No focal sensory deficits Lymphatics: no palpable cervical or supraclavicular , or inguinal lymph nodes Results CBC & Chem 7: 12/30/17 23:05 12/30/17 23:05 Labs: Abnormal Lab Results - Last 24 Hours (Table) 12/30/17 12/30/17 Range/Units 23:05 23:05 WBC 11.7 H (3.8-10.6) k/uL Neutrophils # 7.8 H (1.3-7.7) k/uL Monocytes # 1.1 H (0-1.0) k/uL Chloride 108 H (98-107) mmol/L BUN 19 H (7-17) mg/dL Glucose 121 H (74-99) mg/dL Assessment and Plan Assessment: 57 year oldfemale with history of COPD, admitted under observation with anticipated length of stay <48 hours due to acute hypoxic respiratory failure nad Acute copd exacerbation due to viral bronchitis. Plan: acute hypoxic respiratory failure acute copd exacerbation 2/2 viral bronchitis duonebs systemic steroids counseled to quit smoking check amb oxygen symbicort check Flu hypothyroid continue levothyroxin verify home meds with pharmacy in AM, ?eliquis DVT PPX on heparin sc tid Surrogate decision-maker: Patient daughter CODE STATUS: Full code* Discussed with: Patient, ER, RN Anticipated discharge: <[address]: *Home A total of 55 minutes was spent on the care of this complex patient more than 50 % of the time was spent in counseling and care coordination.
[2017-12-31] MEDS: IBUPROFEN 600 MG TAB PO PRN ×2 (02:38→21:01)
[2017-12-31] MEDS: methylPREDNISolone SOD SUCCI 125 MG/2 ML VIAL IV SCH ×4 (06:08→23:50)
[2017-12-31] MEDS: SYMBICORT 160-4.5 MCG INHALER INHALATION SCH ×2 (07:39→20:55)
[2017-12-31] MEDS ORDERED: ALBUTEROL NEBULIZED 2.5 MG/3 ML INHALATION SCH (08:00)
[2017-12-31] MEDS: HEPARIN SODIUM,PORCINE 5,000 UNIT/ML 1 ML VIAL SQ SCH ×3 (08:08→23:50)
[2017-12-31] MEDS: ASPIRIN 81 MG PO SCH (08:08)
[2017-12-31] MEDS: guaiFENesin 600 MG TABLET.ER PO SCH ×2 (08:09→20:52)
[2017-12-31] MEDS: LEVOTHYROXINE 100 MCG TAB PO SCH (08:09)
[2017-12-31] MEDS: FUROSEMIDE 40 MG TAB PO SCH (08:09)
[2017-12-31] MEDS ORDERED: APIXABAN 5 MG TAB PO SCH (09:00)
[2017-12-31] MEDS ORDERED: ASPIRIN 325 MG TAB PO SCH (09:00)
[2017-12-31] MEDS ORDERED: ACETAMINOPHEN TAB 325 MG TAB PO PRN (11:08)
--- NOTE | 2017-12-31 14:52 | P.PN ---
Progress Note - Text Progress Note Date: 12/31/17 The patient is a 57-year-old female with past medical history of significant tobacco abuse with active use (2-1/2 packs per day for 40 years), hypothyroidism , who presented to the ED for gradually worsening shortness of breath, and cough productive of yellow-green phlegm. The patient notes that she was never formally diagnosed with COPD, though was given inhalers for as needed use by her PMD. The patient was admitted under observation for acute COPD exacerbation with hypoxia. She notes that since admission, her breathing has improved slightly, though she continues to have productive cough. She otherwise denied any chest pain, fever, chills, nausea, vomiting, abdominal pain , dysuria, recent travel, or sick contacts. Physical exam: General: Non-toxic, in no acute distress, obese HEENT: NC/AT, anicteric sclerae, moist conjunctiva, no lid-lag, PERRLA, oropharynx clear, no erythema, exudates Cardiovascular: S1/S2 wnl, no murmurs, rubs, or gallops Lungs: Decreased air entry bilaterally, no wheezing, rales, or rhonchi appreciated, normal respiratory effort, no accessory muscle use Abdominal: Soft, nontender, non-distended, no guarding, rebound, or rigidity, normoactive bowel sounds Skin: Warm, dry Extremities: No edema or contractures Psychiatric: Alert and oriented to person, place and time, appropriate affect, Intact judgment Neuro: CN II-XII grossly intact, no focal motor deficits Assessment/Plan Shortness of breath, likely acute COPD exacerbation 2/2 bronchitis - C/w Solumedrol, Symbicort, and Duonebs - Discussed importance of smoking cessation in length Hypothyroid - C/w Synthyroid home dose DVT//GI - Heparin subq - Protonix
[2017-12-31] MEDS: GABAPENTIN 300 MG CAP PO SCH ×2 (17:09→20:52)
[2017-12-31] MEDS ORDERED: VENLAFAXINE HCL ER 37.5 MG CAP PO SCH (21:00)
[2017-12-31] MEDS ORDERED: ATORVASTATIN 10 MG TAB PO SCH (21:00)
[2017-12-31] MEDS ORDERED: VENLAFAXINE HCL ER 150 MG CAP PO SCH (21:00)
[2018-01-01 00:44] VITALS: RESP 20
[2018-01-01] MEDS: methylPREDNISolone SOD SUCCI 125 MG/2 ML VIAL IV SCH (06:09)
[2018-01-01 06:16] VITALS: BP 120/61; PULSE 69; TEMP 96.1
[2018-01-01] MEDS ORDERED: PANTOPRAZOLE 40 MG TABLET PO SCH (07:30)
[2018-01-01] MEDS: guaiFENesin 600 MG TABLET.ER PO SCH (07:57)
[2018-01-01] MEDS: LEVOTHYROXINE 100 MCG TAB PO SCH (07:57)
[2018-01-01] MEDS: FUROSEMIDE 40 MG TAB PO SCH (07:57)
[2018-01-01] MEDS: HEPARIN SODIUM,PORCINE 5,000 UNIT/ML 1 ML VIAL SQ SCH (07:57)
[2018-01-01] MEDS: GABAPENTIN 300 MG CAP PO SCH (07:57)
[2018-01-01] MEDS: ASPIRIN 81 MG PO SCH (07:58)
[2018-01-01] MEDS: DOXYCYCLINE 100 MG CAP PO SCH (07:58)
[2018-01-01] MEDS: SYMBICORT 160-4.5 MCG INHALER INHALATION SCH (11:14)
--- NOTE | 2018-01-01 11:38 | P.DS ---
Providers Date of admission: 12/31/17 00:45 Expected date of discharge: 01/01/18 Attending physician: Bonny Arredondo MD [facility]: The patient is a 57-year-old female with past medical history of significant tobacco abuse with active use (2-1/2 packs per day for 40 years), hypothyroidism , who presented to the ED for gradually worsening shortness of breath, and cough productive of yellow-green phlegm. The patient notes that she was never formally diagnosed with COPD, though was given inhalers for as needed use by her PMD. The patient was admitted under observation for acute COPD exacerbation with hypoxia. The patient's breathing gradually improved w/ IV steroids and bronchodilators. She was assessed for oxygen requirements and continued to drop to 87% on ambulation. She is otherwise presently stable and ready for discharge to home w/ home oxygen and inhalers with subsequent Pulmonary outpatient f/u and PFTs upon resolution of current episode. Physical Examination General: Awake, alert, in no acute distress HEENT: NC/AT, anicteric sclerae, moist conjunctiva, no lid-lag, PERRLA, oropharynx clear, no erythema, exudates Cardiovascular: S1/S2 wnl, no murmurs, rubs, or gallops Lungs: Mildly decreased air entry marito, normal respiratory effort, no accessory muscle use Abdominal: Soft, nontender, non-distended, no guarding, rebound, or rigidity, normoactive bowel sounds Skin: Warm, dry Extremities: No edema or contractures Psychiatric: Alert and oriented to person, place and time, appropriate affect, Intact judgment Neuro: CN II-XI grossly intact, sensation to light touch grossly present throughout, no focal sensory deficits Discharge diagnosis: Shortness of breath likely acute COPD exacerbation, Hypothyroidism, Obesity A total of 45 minutes of time were spent preparing this complex discharge summary. Patient Condition at Discharge: Fair Plan - Discharge Summary Discharge Rx Participant: No New Discharge Prescriptions: New Budesonide-Formot 160-4.5 Mcg [Symbicort 160-4.5 Mcg Inhaler] 2 puff INHALATION RT-BID #1 puff predniSONE 40 mg PO DAILY 5 Days #10 tab Continue Levothyroxine Sodium [Synthroid] 100 mcg PO DAILY Venlafaxine HCl [Venlafaxine HCl ER] 37.5 mg PO DAILY Venlafaxine HCl [Venlafaxine HCl ER] 150 mg PO DAILY Albuterol Sulfate [Ventolin HFA] 2 puff INHALATION RT-Q4H PRN PRN Reason: Shortness Of Breath guaiFENesin [Mucinex] 600 mg PO BID PRN PRN Reason: Cold Symptoms Atorvastatin Calcium [Lipitor] 10 mg PO DAILY Furosemide [Lasix] 40 mg PO DAILY Potassium Chloride [Klor-Con 20] 20 meq PO DAILY HYDROcodone/APAP 5-325MG [[place] 5-325] 1 tab PO Q6HR PRN #12 tab PRN Reason: Pain Aspirin EC [Ecotrin Low Dose] 81 mg PO DAILY Gabapentin [Neurontin] 300 mg PO TID Discharge Medication List Albuterol Sulfate [Ventolin HFA] 2 puff INHALATION RT-Q4H PRN 05/03/16 [History] Levothyroxine Sodium [Synthroid] 100 mcg PO DAILY 05/03/16 [History] Venlafaxine HCl [Venlafaxine HCl ER] 37.5 mg PO DAILY 05/03/16 [History] Venlafaxine HCl [Venlafaxine HCl ER] 150 mg PO DAILY 05/03/16 [History] Atorvastatin Calcium [Lipitor] 10 mg PO DAILY 06/05/16 [History] Furosemide [Lasix] 40 mg PO DAILY 06/05/16 [History] Potassium Chloride [Klor-Con 20] 20 meq PO DAILY 06/05/16 [History] guaiFENesin [Mucinex] 600 mg PO BID PRN 06/05/16 [History] HYDROcodone/APAP 5-325MG [[place] 5-325] 1 tab PO Q6HR PRN #12 tab 06/09/17 [Rx] Aspirin EC [Ecotrin Low Dose] 81 mg PO DAILY 12/31/17 [History] Gabapentin [Neurontin] 300 mg PO TID 12/31/17 [History] Budesonide-Formot 160-4.5 Mcg [Symbicort 160-4.5 Mcg Inhaler] 2 puff INHALATION RT-BID #1 puff 01/01/18 [Rx] predniSONE 40 mg PO DAILY 5 Days #10 tab 01/01/18 [Rx] Follow up Appointment(s)/Referral(s): Pretty Guthrie MD [Primary Care Provider] - 01/11/18 1:30 pm Renee Dupont MD [STAFF PHYSICIAN] - 01/09/18 2:30 pm (will be seening Mary Kay Lizarraga /Na) Patient Instructions/Handouts: Acute Bronchitis (ED), COPD (Chronic Obstructive Pulmonary Disease) (IP) Discharge Disposition: HOME SELF-CARE
[2018-01-01] MEDS ORDERED: INSULIN ASPART 100 UNIT/ML 1 ML 10 ML VIAL SQ SCH (12:30)
== END 2018-01-01 11:28 | disposition home or self-care (01) ==
LOC: EC 22:01 → 4MS4W 12-31 00:45
PROVIDERS: ADMIT Internal Medicine; ATTEND Internal Medicine
DX: J44.1 Chronic obstructive pulmonary disease with (acute) exacerbation (principal); E03.9 Hypothyroidism, unspecified; E66.9 Obesity, unspecified; Z68.41 Body mass index [BMI] 40.0-44.9, adult; J20.9 Acute bronchitis, unspecified; J44.0 Chronic obstructive pulmonary disease with (acute) lower respiratory infection; F17.210 Nicotine dependence, cigarettes, uncomplicated; F41.9 Anxiety disorder, unspecified; J96.01 Acute respiratory failure with hypoxia; Z71.6 Tobacco abuse counseling; Z79.01 Long term (current) use of anticoagulants; Z79.82 Long term (current) use of aspirin; Z79.890 Hormone replacement therapy; Z96.653 Presence of artificial knee joint, bilateral; Z96.641 Presence of right artificial hip joint; Z90.710 Acquired absence of both cervix and uterus; Z86.73 Personal history of transient ischemic attack (TIA), and cerebral infarction without residual deficits; Z80.7 Family history of other malignant neoplasms of lymphoid, hematopoietic and related tissues
CPT/HCPCS: 96376 ×2; 96372 ×2; 96374; 99285; 36415 ×2; 94640 ×3; 93005; 83880; 80053; 83735; 84484; 85025; 85610; 85730; 87040; 87502; 83036; 71046; G0378 ×2; J1644 ×2; J2930 ×3

== ENCOUNTER → 2018-03-02 | Outpatient (CLI) | payer BC ==
--- NOTE | 2018-03-02 21:15 | MR ---
EXAMINATION TYPE: MR brain wo con DATE OF EXAM: 03/02/2018 COMPARISON: 06/05/2016 CT brain HISTORY: Mild cognitive impairment CONTRAST: Performed utilizing 0 mL intravenous Gadavist gadolinium contrast. TECHNIQUE: Multiplanar, multiecho imaging on a 3.0 Arlen magnet is performed through the brain. Stud y is performed within 24 hours of arrival to the hospital. The craniovertebral junction is normal. The pituitary is normal. Diffusion-weighted imaging is performed. No abnormal hyperintensity is present to suggest an acute i ntracranial infarct or acute ischemic change. There is hypointense signal on diffusion through the right temporal region and right basal ganglion. These areas are hyperintense on T2 and inversion recovery weighted sequences compatible with an old i nfarct. Ex vacuo effect is evident on the lateral ventricle and adjacent sulci. There is a punctate nonspecific white matter change in the anterior left frontal lobe centrum semiova le. This is not of proportion to the patient age. Remaining ventricles and sulci are appropriate for the patient age. IMPRESSIONS: 1. 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 2. No acute intracranial process
== END | disposition home or self-care (01) ==
LOC: RADMRIMAIN 08:31
PROVIDERS: ATTEND Family Medicine
DX: G31.84 Mild cognitive impairment of uncertain or unknown etiology (principal); Z86.73 Personal history of transient ischemic attack (TIA), and cerebral infarction without residual deficits
CPT/HCPCS: 70551

== ENCOUNTER → 2018-03-11 | Outpatient (CLI) | payer BC | END | disposition home or self-care (01) | LOC: RADMRIMAIN 21:40 | PROVIDERS: ATTEND Physical Medicine & Rehabilitation | DX: Z53.9 Procedure and treatment not carried out, unspecified reason (principal) ==

== ENCOUNTER → 2018-07-03 | Outpatient (CLI) | payer BC ==
[2018-07-03 12:28] LABS: Basophils % (A) 0 %; Eosinophils # (A) 0.1 k/uL (0-0.7); Eosinophils % (A) 1 %; HCT 53.1 % (34.0-46.0); Hypochromasia Slight; Lymphocytes # (A) 2.2 k/uL (1.0-4.8); Lymphocytes % (A) 28 %; MCH 26.5 pg (25.0-35.0); MCHC 30.1 g/dL (31.0-37.0); MCV 88.1 fL (80.0-100.0); Mean Platelet Volume 7.6; Monocytes # (A) 0.6 k/uL (0-1.0); Monocytes % (A) 8 %; Neutrophils # (A) 4.7 k/uL (1.3-7.7); Neutrophils % (A) 60 %; Platelet Count 335 k/uL (150-450); RBC 6.03 m/uL (3.80-5.40); RDW 15.6 % (11.5-15.5); WBC 7.9 k/uL (3.8-10.6)
--- NOTE | 2018-07-03 15:04 | MR ---
EXAMINATION TYPE: MR ankle LT wo con DATE OF EXAM: 07/03/2018 COMPARISON: Left foot x-ray July 16, 2017 3 phase bone scan same date.. HISTORY: Left ankle pain, infection. Swelling and limited movement per patient. Standard multiplanar, multisequence MRI departmental protocol Multiplanar, multisequence images of the left ankle were acquired. FINDINGS: Examination was suboptimal due to patient motion Distal Achilles tendon is intact. Visualiz ed plantar fascia is intact. There is small size inferior calcaneal spur. The peroneus brevis and longus tendons are intact. Flexor tendons Posterior medial aspect of the ankle are felt intact. Extensor tendons anteriorly are intact. The anterior tibiofibular ligament and anterior talofibular ligaments are felt intact. Medial deltoid ligament is intact. Normal sinus tarsi fat is seen. There is moderate diffuse subcutaneous edema at level of the ankle. Talar dome shows 7 mm transverse by 10 mm transverse area of low T1 signal coronal image 17 and sagittal image 10 consistent with oste ochondral defect. Bone marrow signal intensity in the hindfoot is otherwise maintained. IMPRESSION: Talar dome osteochondral defect as detailed above. Suboptimal study related to motion. Please refer to same day MRI left foot report for complete details on mid and hindfoot.
[2018-07-03 15:10] LABS: Erythrocyte Sedimentation Rate 10 mm/hr (0-20)
--- NOTE | 2018-07-04 23:54 | MR ---
EXAMINATION TYPE: MR foot LT wo con DATE OF EXAM: 07/03/2018 COMPARISON: 09/19/2017 HISTORY: Left foot pain, swelling, limited movement Standard multiplanar, multisequence MRI departmental protocol Multiplanar multiecho imaging of the left foot was performed with no contrast. The hindfoot is not in cluded to an extent on this exam. FINDINGS: There is subcutaneous edema over the forefoot mainly on the dorsum of the foot. The metatar sals are intact. Exam limited slightly by motion. There is no evidence of a fracture. There is narrow ing of the tarsometatarsal joint spaces. There is slight increased joint fluid at the MP joints I see no focal bone destruction. There is no evidence of a soft tissue mass. IMPRESSION: Subcutaneous edema of the forefoot could relate to cellulitis in this appears similar to old exam. Th is could be also related to noninflammatory edema. No evidence of osteomyelitis. No fracture. Slight increased fluid at the MP joints consistent with minimal synovitis. Minimal Arthritic changes at the tarsometatarsal joints.
== END ==
LOC: RADMRIMAIN 12:10
PROVIDERS: ATTEND Physical Medicine & Rehabilitation
DX: M25.872 Other specified joint disorders, left ankle and foot (principal); M19.072 Primary osteoarthritis, left ankle and foot; B99.9 Unspecified infectious disease
CPT/HCPCS: 85025; 85652; 86140

== ENCOUNTER → 2018-08-02 | Outpatient (CLI) | payer BC ==
--- NOTE | 2018-08-02 13:52 | NM ---
EXAMINATION TYPE: NM bone 3 phase DATE OF EXAM: 08/02/2018 COMPARISON: Prior nuclear medicine three-phase bone scan May 16, 2017 HISTORY: Left foot pain for 1 year per patient. Left foot pain, right hip bursitis, left hip trochant koby bursitis, thoracic spine ligament sprain, low back pain, and lumbosacral spondylosis cough per o rder. Triple phase bone scintigraphy was performed following the injection of 25.4 mCi Tc 99m MDP. Immedia te images and 5.25 hours post injection images acquired of the bilateral ankles and feet. In addition delayed phase images of the abdomen and pelvis are acquired in several projections. FINDINGS: Arterial or soft tissue phase images show increased uptake to the left mid foot lateral aspect versus THE right foot similar to prior bone scan. Three-phase uptake at this level is confirmed on delayed phase images similar to prior. Correlate clinically with focal location of patient's pain. No suspicious increased radiotracer uptake in the thoracolumbar spine on images saved, some mild incr eased uptake lower lumbar levels is felt to reflect product of degenerative change. IMPRESSION: As above.
== END | disposition home or self-care (01) ==
LOC: RADNMMAIN 07:08
PROVIDERS: ATTEND Physical Medicine & Rehabilitation
DX: M54.5 Low back pain (principal); S23.3XXD Sprain of ligaments of thoracic spine, subsequent encounter; M70.62 Trochanteric bursitis, left hip; M51.17 Intervertebral disc disorders with radiculopathy, lumbosacral region; M41.86 Other forms of scoliosis, lumbar region; M70.71 Other bursitis of hip, right hip; M79.672 Pain in left foot; R60.9 Edema, unspecified
CPT/HCPCS: 78315; A9503

== ENCOUNTER → 2018-08-12 | Outpatient (CLI) | payer BC | END | disposition home or self-care (01) | LOC: LABWHC1 11:21 | PROVIDERS: ATTEND Physical Medicine & Rehabilitation | DX: S23.3XXD Sprain of ligaments of thoracic spine, subsequent encounter (principal); M54.5 Low back pain; M70.62 Trochanteric bursitis, left hip; M51.17 Intervertebral disc disorders with radiculopathy, lumbosacral region; M47.817 Spondylosis without myelopathy or radiculopathy, lumbosacral region; M41.86 Other forms of scoliosis, lumbar region; R60.9 Edema, unspecified; M70.71 Other bursitis of hip, right hip; M79.672 Pain in left foot | CPT/HCPCS: 36415; 93005 ==

== ENCOUNTER → 2018-08-28 | Outpatient (CLI) | payer BC ==
--- NOTE | 2018-08-29 12:53 | MM ---
Reason for exam: screening (asymptomatic). Last mammogram was performed 1 year ago. History: Patient is postmenopausal. Family history of breast cancer in maternal grandmother. Physical Findings: A clinical breast exam by your physician is recommended on an annual basis and results should be correlated with mammographic findings. MG 3D Screening Mammo W/Cad Bilateral CC and MLO view(s) were taken. Prior study comparison: August 27, 2017, bilateral MG 3d screening mammo w/cad. June 22, 2015, bilateral MG 3d screening mammo w/cad. There are scattered fibroglandular densities. No significant changes when compared with prior studies. ASSESSMENT: Negative, BI-RAD 1 RECOMMENDATION: Routine screening mammogram of both breasts in 1 year.
== END | disposition home or self-care (01) ==
LOC: RADMAMWWP 12:19
PROVIDERS: ATTEND Family Medicine
DX: Z12.31 Encounter for screening mammogram for malignant neoplasm of breast (principal)
CPT/HCPCS: 77063; 77067

== ENCOUNTER 2018-08-29 14:47 | Observation (INO) | payer BC, MEDICARE ==
[2018-08-29] MEDS ORDERED: KETAMINE 10 MG/ML 20 ML VIAL IVPB STA ×2 (15:31→15:42)
--- NOTE | 2018-08-29 15:38 | ED ---
General Adult HPI - General Chief complaint: Chest Pain Stated complaint: CRPS in L foot, poss blod clot, chest pain Time Seen by Provider: 08/29/18 15:02 Source: patient, RN notes reviewed, old records reviewed Mode of arrival: ambulatory Limitations: no limitations - History of Present Illness Initial comments: 58 -year-old female presenting for evaluation of left lower extremity pain and swelling. Patient has history of complex regional pain syndrome, and her left leg. She's been dealing with this for several years. She was following with pain management. She does report increased swelling and erythema to the left leg. She is concerned about DVT in this leg. She also reports several brief intermittent episodes of central chest pain. No dyspnea. No cough or fever. No sustained chest pain. - Related Data Home Medications Medication Instructions Recorded Confirmed Albuterol Sulfate [Ventolin HFA] 2 puff INHALATION RT-Q4H PRN 05/03/16 08/29/18 Levothyroxine Sodium [Synthroid] 100 mcg PO DAILY 05/03/16 08/29/18 Venlafaxine HCl [Venlafaxine HCl 37.5 mg PO DAILY 05/03/16 08/29/18 ER] Venlafaxine HCl [Venlafaxine HCl 150 mg PO DAILY 05/03/16 08/29/18 ER] Atorvastatin Calcium [Lipitor] 10 mg PO DAILY 06/05/16 08/29/18 Potassium Chloride [Klor-Con 20] 20 meq PO DAILY 06/05/16 08/29/18 Furosemide [Lasix] 20 mg PO DAILY 08/29/18 08/29/18 Gabapentin [Neurontin] 900 mg PO TID 08/29/18 08/29/18 Allergies Allergy/AdvReac Type Severity Reaction Status Date / Time vancomycin Allergy Red Man Verified 08/29/18 15:37 Syndrome Review of Systems ROS Statement: Those systems with pertinent positive or pertinent negative responses have been documented in the HPI. ROS Other: All systems not noted in ROS Statement are negative. Past Medical History Past Medical History: CVA/TIA, Thyroid Disorder Additional Past Medical History / Comment(s): OCCASIONAL LEG SWELLING crps in ll e, History of Any Multi-Drug Resistant Organisms: None Reported Past Surgical History: Section, Hysterectomy, Joint Replacement Additional Past Surgical History / Comment(s): MARY KNEE REPLACEMENTS, RT HIP REPLACEMENT, c-secx2 Additional Past Anesthesia/Blood Transfusion Reaction / Comment(s): "HARD TIME WAKING UP" Past Psychological History: Anxiety Smoking Status: Current every day smoker Past Alcohol Use History: Rare Past Drug Use History: None Reported - Past Family History Mother Family Medical History: Cancer Additional Family Medical History / Comment(s): LYMPHOMA General Exam Limitations: no limitations General appearance: alert, in no apparent distress Head exam: Present: atraumatic, normocephalic Eye exam: Present: normal appearance, PERRL ENT exam: Present: normal exam Neck exam: Present: normal inspection. Absent: tenderness, meningismus Respiratory exam: Present: normal lung sounds bilaterally. Absent: respiratory distress, wheezes Cardiovascular Exam: Present: regular rate, normal rhythm GI/Abdominal exam: Present: soft. Absent: distended, tenderness, guarding Extremities exam: Present: other (Left leg erythematous, pitting edema, warm to touch) Course Vital Signs 08/29/18 14:51 Temperature 98.4 F Pulse Rate 72 Respiratory 18 Rate Blood Pressure 127/64 O2 Sat by Pulse 96 Oximetry - Reevaluation(s) Reevaluation #1: 08/29/18 16:45 No ongoing chest pain. EKG Findings - EKG Comments: EKG Findings:: EKG: Normal sinus rhythm, left axis deviation, nonspecific intrav entricular block, unchanged from EKG on 08/12/2018. No ST segment elevation. Rate of 70, DC interval 172, QRS duration 138, QTC 473. Medical Decision Making - Medical Decision Making 58-year-old female with complaint of left lower extremity pain and swelling, history of reflex sympathetic dystrophy and second complaint of intermittent chest pain. Chest pain is atypical, however patient does have significant risk factors for coronary artery disease. EKG is sinus rhythm with no ST segment elevation. Chest x-ray shows concern for pulmonary hypertension, possible venous congestion, she has a normal CBC, negative initial troponin, DVT study of the left leg is negative although all veins are not visualized. She will be placed in observation for chest pain rule out. Serial cardiac enzymes, telemetry, cardiology consultation. Case is discussed with Dr. Faust who will accept admission. - Lab Data Result diagrams: 08/29/18 15:27 08/29/18 15:27 Lab Results 08/29/18 08/29/18 08/29/18 Range/Units 15:27 15:27 15:27 WBC 9.6 (3.8-10.6) k/uL RBC 5.76 H (3.80-5.40) m/uL Hgb 16.1 H (11.4-16.0) gm/dL Hct 50.8 H (34.0-46.0) % MCV 88.1 (80.0-100.0) fL MCH 28.0 (25.0-35.0) pg MCHC 31.7 (31.0-37.0) g/dL RDW 15.6 H (11.5-15.5) % Plt Count 310 (150-450) k/uL Neutrophils % 56 % Lymphocytes % 32 % Monocytes % 7 % Eosinophils % 1 % Basophils % 0 % Neutrophils # 5.4 (1.3-7.7) k/uL Lymphocytes # 3.1 (1.0-4.8) k/uL Monocytes # 0.7 (0-1.0) k/uL Eosinophils # 0.1 (0-0.7) k/uL Basophils # 0.0 (0-0.2) k/uL PT (9.0-12.0) sec INR (<1.2) APTT (22.0-30.0) sec Sodium 140 (137-145) mmol/L Potassium 4.1 (3.5-5.1) mmol/L Chloride 103 (98-107) mmol/L Carbon Dioxide 28 (22-30) mmol/L Anion Gap 9 mmol/L BUN 14 (7-17) mg/dL Creatinine 0.80 (0.52-1.04) mg/dL Est GFR (CKD-EPI)AfAm >90 (>60 ml/min/1.73 sqM) Est GFR (CKD-EPI)NonAf 82 (>60 ml/min/1.73 sqM) Glucose 96 (74-99) mg/dL Calcium 9.4 (8.4-10.2) mg/dL Magnesium 2.2 (1.6-2.3) mg/dL Total Bilirubin 0.7 (0.2-1.3) mg/dL AST 21 (14-36) U/L ALT 8 L (9-52) U/L Alkaline Phosphatase 114 (38-126) U/L Creatine Kinase 174 H (30-135) U/L Troponin I (0.000-0.034) ng/mL NT-Pro-B Natriuret Pep 78 pg/mL Total Protein 7.2 (6.3-8.2) g/dL Albumin 4.5 (3.5-5.0) g/dL 08/29/18 08/29/18 Range/Units 15:27 15:27 WBC (3.8-10.6) k/uL RBC (3.80-5.40) m/uL Hgb (11.4-16.0) gm/dL Hct (34.0-46.0) % MCV (80.0-100.0) fL MCH (25.0-35.0) pg MCHC (31.0-37.0) g/dL RDW (11.5-15.5) % Plt Count (150-450) k/uL Neutrophils % % Lymphocytes % % Monocytes % % Eosinophils % % Basophils % % Neutrophils # (1.3-7.7) k/uL Lymphocytes # (1.0-4.8) k/uL Monocytes # (0-1.0) k/uL Eosinophils # (0-0.7) k/uL Basophils # (0-0.2) k/uL PT 9.8 (9.0-12.0) sec INR 0.9 (<1.2) APTT 24.8 (22.0-30.0) sec Sodium (137-145) mmol/L Potassium (3.5-5.1) mmol/L Chloride (98-107) mmol/L Carbon Dioxide (22-30) mmol/L Anion Gap mmol/L BUN (7-17) mg/dL Creatinine (0.52-1.04) mg/dL Est GFR (CKD-EPI)AfAm (>60 ml/min/1.73 sqM) Est GFR (CKD-EPI)NonAf (>60 ml/min/1.73 sqM) Glucose (74-99) mg/dL Calcium (8.4-10.2) mg/dL Magnesium (1.6-2.3) mg/dL Total Bilirubin (0.2-1.3) mg/dL AST (14-36) U/L ALT (9-52) U/L Alkaline Phosphatase (38-126) U/L Creatine Kinase (30-135) U/L Troponin I <0.012 (0.000-0.034) ng/mL NT-Pro-B Natriuret Pep pg/mL Total Protein (6.3-8.2) g/dL Albumin (3.5-5.0) g/dL Disposition Clinical Impression: Complex regional pain syndrome, Chest pain Disposition: ADMITTED IP TO THIS HOSP Condition: Stable Is patient prescribed a controlled substance at d/c from ED?: No Referrals: Pretty Guthrie MD [Primary Care Provider] - 1-2 days Decision to Admit Reason: Admit from EC Decision Date: 08/29/18 Decision Time: 16:47
[2018-08-29 15:40] LABS: Basophils % (A) 0 %; Eosinophils # (A) 0.1 k/uL (0-0.7); Eosinophils % (A) 1 %; HCT 50.8 % (34.0-46.0); HGB 16.1 gm/dL (11.4-16.0); Lymphocytes # (A) 3.1 k/uL (1.0-4.8); Lymphocytes % (A) 32 %; MCHC 31.7 g/dL (31.0-37.0); MCV 88.1 fL (80.0-100.0); Mean Platelet Volume 7.1; Monocytes # (A) 0.7 k/uL (0-1.0); Monocytes % (A) 7 %; Neutrophils # (A) 5.4 k/uL (1.3-7.7); Neutrophils % (A) 56 %; Platelet Count 310 k/uL (150-450); RBC 5.76 m/uL (3.80-5.40); RDW 15.6 % (11.5-15.5); WBC 9.6 k/uL (3.8-10.6)
[2018-08-29 15:49] LABS: ALT 8 U/L (9-52); AST 21 U/L (14-36); African American GFR (CKD) >90 (>60 ml/min/1.73 sqM); Albumin 4.5 g/dL (3.5-5.0); Alkaline Phosphatase 114 U/L (38-126); Anion Gap 9 mmol/L; Blood Urea Nitrogen 14 mg/dL (7-17); Calcium 9.4 mg/dL (8.4-10.2); Carbon Dioxide 28 mmol/L (22-30); Chloride 103 mmol/L (98-107); Creatine Kinase 174 U/L (30-135); Glucose 96 mg/dL (74-99); Magnesium 2.2 mg/dL (1.6-2.3); Potassium 4.1 mmol/L (3.5-5.1); Sodium 140 mmol/L (137-145); Total Bilirubin 0.7 mg/dL (0.2-1.3); Total Protein 7.2 g/dL (6.3-8.2)
[2018-08-29 15:51] LABS: INR 0.9 (<1.2); Partial Thromboplastin Time 24.8 sec (22.0-30.0); Prothrombin Time 9.8 sec (9.0-12.0)
[2018-08-29] MEDS ORDERED: KETAMINE IV ONE (16:00)
[2018-08-29] MEDS ORDERED: SODIUM CHLORIDE 0.9% IV ONE (16:00)
--- NOTE | 2018-08-29 16:14 | US ---
EXAMINATION TYPE: US venous doppler duplex LE LT DATE OF EXAM: 08/29/2018 3:56 PM COMPARISON: NONE CLINICAL HISTORY: Left lower extremity pain. SIDE PERFORMED: Left TECHNIQUE: The lower extremity deep venous system is examined utilizing real time linear array sonog amilcar with graded compression, doppler sonography and color-flow sonography. VESSELS IMAGED: External Iliac Vein (EIV)-not seen Common Femoral Vein Deep Femoral Vein Greater Saphenous Vein *-not seen Femoral Vein Popliteal Vein Small Saphenous Vein * Proximal Calf Veins-not seen (* superficial vessels) Grayscale, color doppler, spectral doppler imaging performed of the deep veins of the lower extremity . There is normal flow, compressibility, vascular waveforms. Morbidly obese patient. Technically difficult and limited study. Left Leg: Appears negative for DVT in visualized portions IMPRESSION: Technically difficult examination by the passenger locomotive engineer. No gross evidence for deep venous thrombosis within the left lower extremity.
--- NOTE | 2018-08-29 16:24 | XR ---
EXAMINATION TYPE: XR chest 2V DATE OF EXAM: 08/29/2018 COMPARISON: 12/30/2017 HISTORY: 58 year-old female chest pain TECHNIQUE: PA and lateral views FINDINGS: Heart normal size. Mild diffuse interstitial prominence and bronchial cuffing. Overall appearance rel atively similar to prior. Largest appears to the main right and left pulmonary arteries on the latera l view. No consolidation or pleural effusion. IMPRESSION: 1. Pulmonary arterial hypertension suggested on the lateral view. 2. Chronic interstitial changes, possible chronic bronchitis or asthma. Correlate to exclude mild pul monary vascular congestion.
[2018-08-29] MEDS ORDERED: NALOXONE 0.4 MG/ML 1 ML VIAL IV PRN (16:43)
[2018-08-29] MEDS ORDERED: ACETAMINOPHEN TAB 325 MG TAB PO PRN (16:43)
[2018-08-29] MEDS ORDERED: ASPIRIN 325 MG TAB PO STA (16:43)
[2018-08-29] MEDS ORDERED: ALBUTEROL NEBULIZED 2.5 MG/3 ML INHALATION PRN (17:25)
--- NOTE | 2018-08-29 17:38 | P.HPIM ---
History of Present Illness H&P Date: 08/29/18 Chief Complaint: Left lower extremity redness swelling and pain, chest pain The patient is a 58-year-old female with a past medical history of history of CVA, hyperlipidemia , smoking, hypothyroidism, COPD and chronic regional pain syndrome on buprenorphine patches that presents to the ER via private vehicle with chief complaint of left lower extremity swelling redness and pain and chest pain. Apparently the patient woke up today and noticed that her left foot was more swollen and redder than usual, the patient became concerned that she may be having a blood clot became increasingly anxious and subsequently began having fleeting episodes of left sided chest pain without any associated nausea vomiting diaphoresis, she denies any lightheadedness or dizziness. She denies any subjective fevers chills night sweats, she denies any cough or increasing shortness of breath. In the ER the patient had a comprehensive workup, EKG showed sinus mechanism without any acute suggestion of ischemia, the chest x-ray was consistent with pulmonary artery hypertension also showed chronic interstitial changes and possible mild pulmonary vascular congestion. Lower extremity venous Dopplers were negative for DVT in the left lower extremity Review of Systems Pertinent positives per HPI all others are otherwise negative Past Medical History Past Medical History: CVA/TIA, Thyroid Disorder Additional Past Medical History / Comment(s): OCCASIONAL LEG SWELLING crps in ll e, History of Any Multi-Drug Resistant Organisms: None Reported Past Surgical History: Section, Hysterectomy, Joint Replacement Additional Past Surgical History / Comment(s): MARY KNEE REPLACEMENTS, RT HIP REPLACEMENT, c-secx2 Additional Past Anesthesia/Blood Transfusion Reaction / Comment(s): "HARD TIME WAKING UP" Past Psychological History: Anxiety Smoking Status: Current every day smoker Past Alcohol Use History: Rare Past Drug Use History: None Reported - Past Family History Mother Family Medical History: Cancer Additional Family Medical History / Comment(s): LYMPHOMA Medications and Allergies Home Medications Medication Instructions Recorded Confirmed Type Albuterol Sulfate [Ventolin HFA] 2 puff INHALATION RT-Q4H PRN 05/03/16 08/29/18 History Levothyroxine Sodium [Synthroid] 100 mcg PO DAILY 05/03/16 08/29/18 History Venlafaxine HCl [Venlafaxine HCl 37.5 mg PO DAILY 05/03/16 08/29/18 History ER] Venlafaxine HCl [Venlafaxine HCl 150 mg PO DAILY 05/03/16 08/29/18 History ER] Atorvastatin Calcium [Lipitor] 10 mg PO DAILY 06/05/16 08/29/18 History Potassium Chloride [Klor-Con 20] 20 meq PO DAILY 06/05/16 08/29/18 History Furosemide [Lasix] 20 mg PO DAILY 08/29/18 08/29/18 History Gabapentin [Neurontin] 900 mg PO TID 08/29/18 08/29/18 History Allergies Allergy/AdvReac Type Severity Reaction Status Date / Time vancomycin Allergy Red Man Verified 08/29/18 15:37 Syndrome Physical Exam Vitals: Vital Signs Temp Pulse Resp BP Pulse Ox 08/29/18 16:55 67 18 135/86 94 L 08/29/18 14:51 98.4 F 72 18 127/64 96 Intake and Output 08/29/18 08/29/18 08/29/18 06:59 14:59 22:59 Other: Weight 158.757 kg Constitutional: No acute distress, conversant, pleasant Eyes: Anicteric sclerae, moist conjunctiva, no lid-lag, PERRLA ENMT: NC/AT,Oropharynx clear, no erythema, exudates Neck:Supple, FROM, no masses, or JVD, No carotid bruits; No thyromegaly Lungs: Clear to auscultation, Clear to percussion, Normal respiratory effort, no accessory muscle use Cardiovascular: Heart regular in rate and rhythm, No murmurs, gallops, or rubs no peripheral edema Abdominal: Soft Nontender, nom distended, no guarding, no rebound or rigidity, Normoactive bowel sounds No hepatomegaly, No splenomegaly, No palpable mass No abdominal wall hernia noted Skin: Normal temperature, tone, texture, turgor, No induration No subcutaneous nodules, No rash, lesions, No ulcers Extremities:No digital cyanosis No clubbing, Pedal pulses intact and symmetrical Radial pulses intact and symmetrical Normal gait and station, No calf tenderness Psychiatric: Alert and oriented to person, place and time, Appropriate affect Intact judgement Neuro: Muscles Strength 5/5 in all 4 extremities, Sensation to light touch grossly present throughout, Cranial nerves II-XII grossly intact. No focal sensory deficits Results CBC & Chem 7: 08/29/18 15:27 08/29/18 15:27 Labs: Abnormal Lab Results - Last 24 Hours (Table) 08/29/18 08/29/18 Range/Units 15:27 15:27 RBC 5.76 H (3.80-5.40) m/uL Hgb 16.1 H (11.4-16.0) gm/dL Hct 50.8 H (34.0-46.0) % RDW 15.6 H (11.5-15.5) % ALT 8 L (9-52) U/L Creatine Kinase 174 H (30-135) U/L Assessment and Plan (1) Atypical chest pain Current Visit: Yes Status: Acute Code(s): R07.89 - OTHER CHEST PAIN SNOMED Code(s): 394063808 (2) Left leg cellulitis Current Visit: Yes Status: Acute Code(s): L03.116 - CELLULITIS OF LEFT LOWER LIMB SNOMED Code(s): 186347469 (3) Essential hypertension Current Visit: Yes Status: Acute Code(s): I10 - ESSENTIAL (PRIMARY) HYPERTENSION SNOMED Code(s): 65847603 (4) Complex regional pain syndrome Current Visit: Yes Status: Acute Code(s): DRI0346 - SNOMED Code(s): 621671456 Plan: The patient is placed in observation anticipate a less than 2 midnight stay with atypical chest pain with initial workup with EKG and troponins negative for any suggestion of acute ischemia, the patient does have ongoing CAD risk factors. Plan to continue routine chest pain orders we will trend her troponins, start antiplatelet therapy with aspirin, when necessary orders for nitroglycerin, will plan to obtain lipid panel d-dimer and echocardiogram and cardiology has been consulted from the ED. We'll start treatment for left lower extremity cellulitis with Bactrim. We'll place the patient on DVT prophylaxis with heparin. Continue to follow her clinical course CODE STATUS: Full code Discussed plan of care with: Power of refiner operator daughter Naz Anticipated discharge 1-[address]: Home
[2018-08-29] MEDS: HEPARIN SODIUM,PORCINE 5,000 UNIT/ML 1 ML VIAL SQ SCH (21:47)
[2018-08-29] MEDS: SULFAMETHOX-TMP 800-160MG 1 EACH TAB PO SCH (21:47)
[2018-08-29] MEDS: GABAPENTIN 300 MG CAP PO SCH (21:48)
[2018-08-29] MEDS: NICOTINE 21MG/24HR PATCH TRANSDERM SCH (22:45)
[2018-08-30 04:05] LABS: Cholesterol 169 mg/dL (<200); HDL Cholesterol 74 mg/dL (40-60); LDL Cholesterol,Calculated 69 mg/dL (0-99); Triglycerides 129 mg/dL (<150)
[2018-08-30] MEDS: MORPHINE SULFATE 4 MG/ML SYRINGE IV PRN ×2 (04:10→12:29)
[2018-08-30] MEDS ORDERED: LEVOTHYROXINE 100 MCG TAB PO SCH (06:30)
--- NOTE | 2018-08-30 08:26 | CT ---
EXAMINATION TYPE: CT chest angio for PE DATE OF EXAM: 08/30/2018 COMPARISON: CT chest dated 12/31/2015 HISTORY: chest pain, elevated d dimer CT DLP: 807.8 mGycm CONTRAST: CT chest with contrast and 3D reconstruction with MIP imaging is performed with IV Contrast, patient injected with 100 mL of Isovue 370. Contrast-enhanced CT of the chest was performed through the course of the pulmonary arteries with elva g and mediastinal window settings submitted. 3D reconstruction with MIP imaging was also performed. PULMONARY ARTERIES: The pulmonary arteries and their major tributaries are patent. I do not see elieser dence for sizable filling defect to suggest pulmonary embolic process. LUNGS: The lungs are clear and free of infiltrate. No evidence for atelectasis. Stable left 6 mm pleu ral-based nodule lateral right upper lobe image 50 No pleural effusion. MEDIASTINUM: Thoracic aorta is of normal caliber,however, evaluation is limited given timing of the contrast bolus. If there is concern for thoracic aortic pathology consider JAYLEN. Correlate clinicall y . The heart is not enlarged. No evidence for mediastinal mass. No mediastinal lymph nodes greater than 1cm. HILAR STRUCTURES: No evidence for mass. No hilar lymph nodes greater than 1 cm. UPPER ABDOMEN: No significant abnormality is seen. IMPRESSION: 1. No evidence for Pulmonary embolism at this time.
[2018-08-30] MEDS ORDERED: POTASSIUM CHLORIDE ER 20 MEQ TAB.ER PO SCH (09:00)
[2018-08-30] MEDS ORDERED: FUROSEMIDE 20 MG TAB PO SCH (09:00)
[2018-08-30] MEDS ORDERED: ATORVASTATIN 10 MG TAB PO SCH (09:00)
[2018-08-30] MEDS ORDERED: VENLAFAXINE HCL ER 150 MG CAP PO SCH (09:00)
[2018-08-30] MEDS ORDERED: VENLAFAXINE HCL ER 37.5 MG CAP PO SCH (09:00)
[2018-08-30] MEDS ORDERED: ASPIRIN 325 MG TAB PO SCH (09:00)
[2018-08-30 11:21] VITALS: BP 118/78; PULSE 68; RESP 18; TEMP 98.2
[2018-08-30] MEDS: HEPARIN SODIUM,PORCINE 5,000 UNIT/ML 1 ML VIAL SQ SCH (12:29)
[2018-08-30] MEDS: GABAPENTIN 300 MG CAP PO SCH (12:30)
[2018-08-30] MEDS: SULFAMETHOX-TMP 800-160MG 1 EACH TAB PO SCH (12:31)
--- NOTE | 2018-08-30 12:31 | CONS ---
CONSULTATION Mrs. Ponce is a 58-year-old female who is seen for cardiac evaluation. Patient's emergency room records reviewed. This patient primarily came with a complaint of left lower extremity pain and swelling. This patient has a history of a complex regional pain syndrome and she has been having this for last few years and she has been followed by the Pain Management. She was concerned whether she has a DVT in the leg and she came to the emergency room. Venous duplex study was negative for any DVT. The patient complained of some brief sharp shooting chest pains lasting for a few seconds. Patient denies any history of exertional chest discomfort. There is no previous history of myocardial infarction. The patient has a history of hyperlipidemia and has also a history of a prior stroke. According to her, there was a blood clot in the brain. HOME MEDICATIONS: Include Ventolin, Synthroid, Effexor, Lipitor, Klor-Con, Lasix. ALLERGIES: None known. PAST MEDICAL HISTORY: Includes history of , hysterectomy, joint replacement, bilateral knee replacement, right hip replacement and history of a stroke. SMOKING HISTORY: Patient is currently everyday smoker. PHYSICAL EXAMINATION: At present reveals a 58-year-old obesely-built female who does not appear to be in any acute distress. Patient's blood pressure is 127/64 mmHg, oxygen saturation was 96%. HEENT examination is negative. Neck is supple. There is no increase in jugular venous pressure. Both the carotid pulses are felt. There is no bruit. Chest is symmetrical. Heart, the PMI is not felt. First and second heart sounds are normal. There is no evidence of any murmur. Lungs are clinically clear to auscultation and percussion. Abdomen is negative. Extremities, peripheral pulsations are 2+. Venous duplex study is negative for DVT. Chest CTA does not show any evidence of pulmonary embolism. Patient's EKG is normal, electrolytes are normal. Three sets of cardiac enzymes are normal. Patient is admitted primarily with left lower extremity pain and swelling. There is no definite evidence of DVT. History of atypical chest pain, sharp shooting chest pain lasting only for a few seconds. EKGs and cardiac enzymes are normal. Patient was reassured. She was advised to follow up with the PCP. If she continues to have a recurrent pain, she should be evaluated with a stress test in view of her history of smoking. MMODL / IJN: [id number] /
[2018-08-30] MEDS: NICOTINE 21MG/24HR PATCH TRANSDERM SCH (12:41)
--- NOTE | 2018-08-30 12:52 | ECHOF ---
Referral Reason:Atypical chest pain MEASUREMENTS -------- HEIGHT: 190.5 cm WEIGHT: 158.8 kg BP: 105/69 RVIDd: 3.6 cm (< 3.3) IVSd: 1.6 cm (0.6 - 1.1) LVIDd: 3.7 cm (3.9 - 5.3) LVPWd: 1.5 cm (0.6 - 1.1) IVSs: 1.9 cm LVIDs: 2.4 cm LVPWs: 2.5 cm LA Diam: 3.8 cm (2.7 - 3.8) LAESV Index (A-L): 25.99 ml/m Ao Diam: 3.4 cm (2.0 - 3.7) MV EXCURSION: 20.195 mm (> 18.000) MV EF SLOPE: 83 mm/s (70 - 150) EPSS: 0.9 cm MV E [place]: 1.21 m/s MV DecT: 253 ms MV A [place]: 1.34 m/s MV E/A Ratio: 0.90 FINDINGS -------- Sinus rhythm. This was a technically difficult study with suboptimal parasternal views. The left ventricular size is normal. There is moderate concentric left ventricular hypertrophy. O verall left ventricular systolic function is normal with, an EF between 60 - 65 %. The right ventricle is mildly enlarged. Normal LA size by volume 22+/-6 ml/m2. The right atrium is normal in size. Lumason used Aneurysmal Interatrial septum. The aortic valve was not well visualized. Mild mitral regurgitation is present. The tricuspid valve appears structurally normal. The pulmonic valve was not well visualized. The aortic root size is normal. Normal inferior vena cava with normal inspiratory collapse consistent with estimated right atrial pre ssure of 5 mmHg. There is no pericardial effusion. CONCLUSIONS -------- 1. Sinus rhythm. 2. This was a technically difficult study with suboptimal parasternal views. 3. The left ventricular size is normal. 4. There is moderate concentric left ventricular hypertrophy. 5. Overall left ventricular systolic function is normal with, an EF between 60 - 65 %. 6. The right ventricle is mildly enlarged. 7. Normal LA size by volume 22+/-6 ml/m2. 8. The right atrium is normal in size. 9. Lumason used 10. Aneurysmal Interatrial septum. 11. The aortic valve was not well visualized. 12. Mild mitral regurgitation is present. 13. The tricuspid valve appears structurally normal. 14. The pulmonic valve was not well visualized. 15. The aortic root size is normal. 16. Normal inferior vena cava with normal inspiratory collapse consistent with estimated right atrial pressure of 5 mmHg. 17. There is no pericardial effusion. PSYCHIATRIC NP: Yanet Campos RDCS
--- NOTE | 2018-08-30 14:43 | P.DS ---
Providers Date of admission: 08/29/18 16:43 Expected date of discharge: 08/30/18 Attending physician: Luis Faust MD Consults: 08/29/18 16:44 Consult Physician Routine Consulting Provider: Ag Connell Consult Reason/Comments: CP Do you want consulting provider notified?: Yes Primary care physician: Pretty Guthrie - Discharge Diagnosis(es) (1) Atypical chest pain Status: Acute (2) Left leg cellulitis Status: Acute (3) Essential hypertension Status: Acute (4) Elevated d-dimer Status: Acute (5) Complex regional pain syndrome Status: Acute Hospital Course: The patient is a 58-year-old female with a past medical history of history of CVA, hyperlipidemia , smoking, hypothyroidism, COPD and chronic regional pain syndrome on buprenorphine patches that was admitted with atypical chest pain with need to rule out ACS due to ongoing CAD risk factors. Workup with EKG indicated sinus mechanism and was negative for any suggestion of any acute ischemia, troponins were negative 3, d-dimer was elevated at 1.28 subsequent CTA of the chest was negative for PE, left lower extremity Dopplers were also negative for DVT. Patient was she with antibiotics Bactrim for her left lower extremity cellulitis, there is no signs of sepsis patient was hemodynamically stable and afebrile without a white count. Echocardiogram was ordered showing a preserved LVEF of 60-65% with moderate concentric left ventricular hypertrophy and a normal left atrium. Cardiology was consulted and the patient was cleared for discharge back home with recommendations to follow up with her PCP. This discharge process took approximately 30 minutes focused exam CV: Regular rate and rhythm, no murmurs rubs or gallops Patient Condition at Discharge: Stable Plan - Discharge Summary New Discharge Prescriptions: New Sulfamethox-Tmp 800-160Mg [Bactrim DS 800-160 mg] 1 each PO BID #20 tab Continue Levothyroxine Sodium [Synthroid] 100 mcg PO DAILY Venlafaxine HCl [Venlafaxine HCl ER] 37.5 mg PO DAILY Venlafaxine HCl [Venlafaxine HCl ER] 150 mg PO DAILY Albuterol Sulfate [Ventolin HFA] 2 puff INHALATION RT-Q4H PRN PRN Reason: Shortness Of Breath Atorvastatin Calcium [Lipitor] 10 mg PO DAILY Potassium Chloride [Klor-Con 20] 20 meq PO DAILY Gabapentin [Neurontin] 900 mg PO TID Furosemide [Lasix] 20 mg PO DAILY Discharge Medication List Albuterol Sulfate [Ventolin HFA] 2 puff INHALATION RT-Q4H PRN 05/03/16 [History] Levothyroxine Sodium [Synthroid] 100 mcg PO DAILY 05/03/16 [History] Venlafaxine HCl [Venlafaxine HCl ER] 37.5 mg PO DAILY 05/03/16 [History] Venlafaxine HCl [Venlafaxine HCl ER] 150 mg PO DAILY 05/03/16 [History] Atorvastatin Calcium [Lipitor] 10 mg PO DAILY 06/05/16 [History] Potassium Chloride [Klor-Con 20] 20 meq PO DAILY 06/05/16 [History] Furosemide [Lasix] 20 mg PO DAILY 08/29/18 [History] Gabapentin [Neurontin] 900 mg PO TID 08/29/18 [History] Sulfamethox-Tmp 800-160Mg [Bactrim DS 800-160 mg] 1 each PO BID #20 tab 08/30/18 [Rx] Follow up Appointment(s)/Referral(s): Pretty Guthrie MD [Primary Care Provider] - 1-2 days Davi Purvis MD [STAFF PHYSICIAN] - As Needed Patient Instructions/Handouts: Chest Pain (DC), Leg Edema (ED) Discharge Disposition: HOME SELF-CARE
== END 2018-08-30 14:08 | disposition home or self-care (01) ==
LOC: EC 14:47 → 1SOBS 16:43
PROVIDERS: ADMIT Family Medicine; ATTEND Family Medicine
DX: R07.89 Other chest pain (principal); L03.116 Cellulitis of left lower limb; R79.89 Other specified abnormal findings of blood chemistry; G90.50 Complex regional pain syndrome I, unspecified; E03.9 Hypothyroidism, unspecified; F41.9 Anxiety disorder, unspecified; J44.9 Chronic obstructive pulmonary disease, unspecified; I10 Essential (primary) hypertension; E78.5 Hyperlipidemia, unspecified; M79.89 Other specified soft tissue disorders; E66.01 Morbid (severe) obesity due to excess calories; Z68.41 Body mass index [BMI] 40.0-44.9, adult; F17.200 Nicotine dependence, unspecified, uncomplicated; Z86.73 Personal history of transient ischemic attack (TIA), and cerebral infarction without residual deficits; Z79.899 Other long term (current) drug therapy; Z79.891 Long term (current) use of opiate analgesic; Z79.890 Hormone replacement therapy; Z88.1 Allergy status to other antibiotic agents; Z80.7 Family history of other malignant neoplasms of lymphoid, hematopoietic and related tissues
CPT/HCPCS: 96372 ×2; 96375; 96376; 96365; 99285; 36415; 94640; 93005; 93306; 85379; 83880; 80061; 80053; 82550; 83735; 84484 ×2; 85025; 85610; 85730; 71046; 93971; 71275; G0378 ×2; S4990; J2270; J1644 ×2; Q9950; Q9967

== ENCOUNTER → 2018-09-17 | Outpatient (CLI) | payer BC ==
--- NOTE | 2018-09-17 11:54 | CT ---
EXAMINATION TYPE: CT pelvis wo con DATE OF EXAM: 09/17/2018 COMPARISON: CT abdomen and pelvis September 06, 2016. HISTORY: Hip and back pain. Left hip trochanteric bursitis and iliopsoas bursitis. Right hip bursitis . Unsteady gait. CT DLP: 2154 mGycm Automated exposure control for dose reduction was used. FINDINGS: There is redemonstration of metallic hardware from right hip arthroplasty which is stable and satisfa ctory in position. There is redemonstration narrowing and subchondral cystic change at pubic symphysis. No acute fractur e or dislocation is seen. Sacroiliac joints remain within normal limits. Left hip joint demonstrates [id number] axial joint space loss without significant spurring or s ubchondral cystic change. No large suspicious focal fluid collection identified in either hip. There are prominent but symmetri c appearing bilateral groin lymph nodes axial image 101 redemonstrated. No new adenopathy is seen. No groin hernias are evident. Visualized lower abdomen and pelvis shows no suspicious bowel dilatation or concerning pelvic fluid c ollection. Uterus is surgically absent or markedly atrophic. Visualized bladder is within normal limi ts. There is moderate to severe multilevel disc space narrowing and vacuum disc phenomenon L3-L4 through L5-S1 levels of the lumbar spine redemonstrated. IMPRESSION: As above.
== END | disposition home or self-care (01) ==
LOC: RADCTMAIN 11:23
PROVIDERS: ATTEND Physical Medicine & Rehabilitation
DX: M54.5 Low back pain (principal); S23.3XXD Sprain of ligaments of thoracic spine, subsequent encounter; M70.62 Trochanteric bursitis, left hip; M51.17 Intervertebral disc disorders with radiculopathy, lumbosacral region; M47.817 Spondylosis without myelopathy or radiculopathy, lumbosacral region; M41.86 Other forms of scoliosis, lumbar region; M70.71 Other bursitis of hip, right hip; M79.672 Pain in left foot
CPT/HCPCS: 72192

== ENCOUNTER → 2019-03-10 | Outpatient (CLI) | payer BC | END | disposition home or self-care (01) | LOC: LABWHC1 16:32 | PROVIDERS: ATTEND Physical Medicine & Rehabilitation | DX: M47.27 Other spondylosis with radiculopathy, lumbosacral region (principal); M41.86 Other forms of scoliosis, lumbar region; S23.3XXD Sprain of ligaments of thoracic spine, subsequent encounter; M70.62 Trochanteric bursitis, left hip; M70.71 Other bursitis of hip, right hip; M79.672 Pain in left foot; Z13.6 Encounter for screening for cardiovascular disorders; R26.81 Unsteadiness on feet; G90.522 Complex regional pain syndrome I of left lower limb; Z86.73 Personal history of transient ischemic attack (TIA), and cerebral infarction without residual deficits | CPT/HCPCS: 36415; 93005 ==

== ENCOUNTER → 2019-04-04 | Outpatient (CLI) | payer BC ==
[2019-04-04 09:31] LABS: HCT 51.9 % (34.0-46.0); HGB 16.3 gm/dL (11.4-16.0); MCH 29.4 pg (25.0-35.0); MCHC 31.4 g/dL (31.0-37.0); MCV 93.6 fL (80.0-100.0); Mean Platelet Volume 7.4; Platelet Count 268 k/uL (150-450); RBC 5.55 m/uL (3.80-5.40); RDW 14.6 % (11.5-15.5); WBC 6.3 k/uL (3.8-10.6)
[2019-04-04 19:26] LABS: ALT <8 U/L (8-44); AST 16 U/L (13-35); African American GFR (CKD) 94.2 (60.0-200.0); Albumin/Globulin Ratio 2.22 (1.60-3.17); Alkaline Phosphatase 100 U/L (41-126); Calcium 9.2 mg/dL (8.7-10.3); Chloride 109 mmol/L (96-109); Chol/HDL Ratio 3.11; Cholesterol 218 mg/dL (0-200); Globulin 1.8 g/dL (1.6-3.3); Glucose 102 mg/dL (70-110); Non-African American GFR(CKD) 81.3 (60.0-200.0); Potassium 4.6 mmol/L (3.5-5.5); Sodium 144 mmol/L (135-145); Total Bilirubin 0.5 mg/dL (0.2-1.2); Total Protein 5.8 g/dL (6.2-8.2)
== END | disposition home or self-care (01) ==
LOC: LABWHC1 08:55
PROVIDERS: ATTEND Family Medicine
DX: E03.9 Hypothyroidism, unspecified (principal); R63.5 Abnormal weight gain; R52 Pain, unspecified
CPT/HCPCS: 36415; 80053; 80061; 82306; 82607; 84439; 84443; 85027

== ENCOUNTER → 2019-08-06 | Outpatient (CLI) | payer BC ==
--- NOTE | 2019-08-06 12:51 | US ---
EXAMINATION TYPE: US venous doppler duplex LE LT DATE OF EXAM: 08/06/2019 12:23 PM COMPARISON: NONE CLINICAL HISTORY: 59-year-old female I80.9 Phlebitis and thrombophlebitis. SIDE PERFORMED: Left TECHNIQUE: The lower extremity deep venous system is examined utilizing real time linear array sonog amilcar with graded compression, doppler sonography and color-flow sonography. FINDINGS: VESSELS IMAGED: External Iliac Vein (EIV) Common Femoral Vein Deep Femoral Vein Greater Saphenous Vein * Femoral Vein Popliteal Vein Small Saphenous Vein * Proximal Calf Veins (* superficial vessels) Gluten Settling Tender notes: Morbidly obese patient. Technically difficult study. Left Leg: Appears negative for DVT. IMPRESSION: Technically limited exam due to patient body habitus. Within this limitation, no sonographic evidence for DVT within the left lower extremity imaged from the groin to the upper calf.
== END | disposition home or self-care (01) ==
LOC: RADUSWWP 12:22
PROVIDERS: ATTEND Orthopaedic Surgery
DX: M25.572 Pain in left ankle and joints of left foot (principal); M79.672 Pain in left foot; R60.9 Edema, unspecified; F17.210 Nicotine dependence, cigarettes, uncomplicated; M79.662 Pain in left lower leg; I80.9 Phlebitis and thrombophlebitis of unspecified site

== ENCOUNTER → 2019-11-07 | Outpatient (CLI) | payer BC ==
--- NOTE | 2019-11-11 09:53 | MM ---
Reason for exam: screening (asymptomatic). Last mammogram was performed 1 year and 2 months ago. History: Patient is postmenopausal. Family history of breast cancer in maternal grandmother. Physical Findings: A clinical breast exam by your physician is recommended on an annual basis and results should be correlated with mammographic findings. MG 3D Screening Mammo W/Cad Bilateral CC and MLO view(s) were taken. Prior study comparison: August 28, 2018, bilateral MG 3d screening mammo w/cad. August 27, 2017, bilateral MG 3d screening mammo w/cad. There are scattered fibroglandular densities. No significant changes when compared with prior studies. ASSESSMENT: Benign, BI-RAD 2 RECOMMENDATION: Routine screening mammogram of both breasts in 1 year.
== END | disposition home or self-care (01) ==
LOC: RADMAMWWP 13:29
PROVIDERS: ATTEND Family Medicine
DX: Z12.31 Encounter for screening mammogram for malignant neoplasm of breast (principal)
CPT/HCPCS: 77063; 77067

== ENCOUNTER → 2019-12-31 | Outpatient (CLI) | payer BC ==
--- NOTE | 2020-01-01 08:38 | CTL ---
EXAMINATION TYPE: CT Low Dose Lung DATE OF EXAM ORDERED: 12/31/2019 HISTORY: 59-year-old female personal tobacco use. Lung cancer screening CT DLP: [address] CTDI: 3.48 mGy Automated exposure control for dose reduction was used. SCREENING VISIT: Baseline COMPARISON: CT 08/30/2018 TECHNIQUE: Low dose computed tomography scan was performed through the chest chest. Coronal and sagit juan carlos reconstructions performed. Coronal MIP reconstructions also generated. CT DIAGNOSTIC QUALITY: Limited, but interpretable FINDINGS: Heart normal size without pericardial effusion. Conventional arch vessel branching anatomy with minimal scattered prostatic calcifications. Large caliber to the main right and left pulmonary arteries measuring up to 3.9 and 3.6 cm, respectiv ranjana, suggesting underlying pulmonary arterial hypertension. No thoracic lymphadenopathy by size criteria. Mild to moderate diffuse bronchial wall thickening. Hazy areas of dependent atelectasis. 4 mm nodularity posterior right upper lobe, axial image 92 is unchanged. 5 mm subpleural pulmonary nodule anterolateral right midlung, axial image 103. 4 mm posterior subpleural left upper lobe pulmonary nodule, axial image 20. No consolidation or pleural effusion. Some mild patchy subpleural opacities at the left base likely represent additional areas of atelectas is. The abdomen is very limited due to large patient body habitus and low-dose technique. They seem to be some surgical clips in the left upper abdomen causing additional artifacts. Bones: Very limited due to low-dose CT technique and large patient body habitus. IMPRESSION: 1. LungRADS Category 2 (benign appearance, <1% chance of malignancy); limited but interpretable exam . There are a few pulmonary nodules measuring 5 mm and smaller on baseline screening. 2. Mild to moderate diffuse bronchial wall thickening suggesting bronchitis or asthma. 3. Large main pulmonary arteries generally seen with pulmonary arterial hypertension. RECOMMENDATION: 1. Continue annual low-dose lung cancer screening CT. 2. Appropriate workup and management for potential underlying pulmonary arterial hypertension. 3. Smoking cessation. FOLLOW UP CT CHEST RECOMMENDATION: [address] LUNG RAD: Lung-Rad 2 Benign Appearance or Behavior
== END | disposition home or self-care (01) ==
LOC: RADCTMAIN 16:43
PROVIDERS: ATTEND Internal Medicine Hematology & Oncology
DX: Z12.2 Encounter for screening for malignant neoplasm of respiratory organs (principal); F17.210 Nicotine dependence, cigarettes, uncomplicated

== ENCOUNTER → 2020-02-13 | Outpatient (CLI) | payer BC ==
[2020-02-13 16:02] LABS: Chol/HDL Ratio 3.12
[2020-02-13 16:44] LABS: INR 0.95 (0.90-1.11); Partial Thromboplastin Time 28.3 sec (23.5-31.0); Prothrombin Time 10.3 sec (9.9-11.9)
[2020-02-13 17:44] LABS: Hemoglobin A1C 6.3 % (4.0-6.0)
== END | disposition home or self-care (01) ==
LOC: LABWHC1 08:17
PROVIDERS: ATTEND Psychiatry & Neurology Neurology
DX: E78.5 Hyperlipidemia, unspecified (principal); G62.9 Polyneuropathy, unspecified; Z86.73 Personal history of transient ischemic attack (TIA), and cerebral infarction without residual deficits
CPT/HCPCS: 36415; 80061; 82607; 83036; 84165; 84439; 84443; 85610; 85652; 85730; 86334

== ENCOUNTER 2020-09-30 14:30 | Emergency (ER) | payer BC, MEDICARE ==
[2020-09-30 14:37] VITALS: RESP 18; TEMP 98.1
[2020-09-30] MEDS ORDERED: KETOROLAC 15 MG/ML 1 ML VIAL IVP STA (15:12)
[2020-09-30] MEDS ORDERED: SODIUM CHLORIDE 0.9% 1,000 ML IV STA (15:12)
--- NOTE | 2020-09-30 15:18 | ED ---
General Adult HPI - General Chief complaint: Back Pain/Injury Stated complaint: Back pain Time Seen by Provider: 09/30/20 14:59 Source: patient Mode of arrival: ambulatory Limitations: no limitations - History of Present Illness Initial comments: Patient is a 60-year-old female with history of thyroid disorder, CVA affecting the left arm, presenting to the emergency Department with complaints of right- sided low back pain that been increasing over the past week. She states she's had chronic back pain for many years, which usually localized in the right lower back. She states over the past week she's noticed a different sort of pain in her right lower back with some radiation towards her right side. She states the pain has been intermittent but feels like it's been getting worse. She denies any numbness and tingling down her extremities. She does have some shooting pain down her right leg but states that is normal for her. She denies any chest pain or shortness of breath today, no fevers or chills. She denies history of kidney stones. She does admit to history of C-sections, hysterectomy, no other abdominal surgeries. Her bowel movements have been normal, no dysuria or frequency. She has no further complaints at this time. Upon arrival her vitals are stable. - Related Data Home Medications Medication Instructions Recorded Confirmed Albuterol Sulfate [Ventolin HFA] 2 puff INHALATION RT-Q4H PRN 05/03/16 09/30/20 Levothyroxine Sodium [Synthroid] 100 mcg PO DAILY 05/03/16 09/30/20 Gabapentin [Neurontin] 900 mg PO TID 08/29/18 09/30/20 ARIPiprazole [Abilify] 2 mg PO HS 09/30/20 09/30/20 Cholecalciferol (Vitamin D3) 125 mcg PO FR 09/30/20 09/30/20 [Vitamin D3 (125 MCG = 50,000 IU)] DULoxetine HCL [Cymbalta] 60 mg PO DAILY 09/30/20 09/30/20 Ibuprofen [Motrin Ib] 800 mg PO Q8H PRN 09/30/20 09/30/20 Saxenda 6mg/Ml 3 mg SQ DAILY 09/30/20 09/30/20 Tiotropium 18 Mcg/Puff [Spiriva] 1 cap PO RT-DAILY 09/30/20 09/30/20 Allergies Allergy/AdvReac Type Severity Reaction Status Date / Time vancomycin Allergy Red Man Verified 09/30/20 15:23 Syndrome Review of Systems ROS Statement: Those systems with pertinent positive or pertinent negative responses have been documented in the HPI. ROS Other: All systems not noted in ROS Statement are negative. Past Medical History Past Medical History: CVA/TIA, Thyroid Disorder Additional Past Medical History / Comment(s): OCCASIONAL LEG SWELLING crps in ll e, History of Any Multi-Drug Resistant Organisms: None Reported Past Surgical History: Section, Hysterectomy, Joint Replacement Additional Past Surgical History / Comment(s): MARY KNEE REPLACEMENTS, RT HIP REPLACEMENT, [id number] Additional Past Anesthesia/Blood Transfusion Reaction / Comment(s): "HARD TIME WAKING UP" Past Psychological History: Anxiety Smoking Status: Current every day smoker Past Alcohol Use History: Rare Past Drug Use History: None Reported - Past Family History Mother Family Medical History: Cancer Additional Family Medical History / Comment(s): LYMPHOMA General Exam - General Exam Comments Initial Comments: GENERAL: Patient is well-developed and well-nourished. Patient is nontoxic and in no acute distress. HEAD: Atraumatic, normocephalic. EYES: Pupils equal round and reactive to light, extraocular movements intact, sclera anicteric, conjunctiva are normal. Eyelids were unremarkable. ENT: Nares patent, oropharynx clear without exudates. Moist mucous membranes. NECK: Normal range of motion, supple without lymphadenopathy or JVD. LUNGS: Unlabored respirations. Breath sounds clear to auscultation bilaterally and equal. No wheezes rales or rhonchi. HEART: Regular rate and rhythm without murmurs, rubs or gallops. ABDOMEN: Soft, nontender, normoactive bowel sounds. No guarding, no rebound. No masses appreciated. : Deferred MUSCULOSKELETAL: Normal extremities with adequate strength and normal range of motion, no pitting or edema. No clubbing or cyanosis. Mild pain with palpation of the right lower back, right paraspinals. No pain of the right side of the abdomen, no flank pain. NEUROLOGICAL: Patient is alert and oriented x 3. Motor and sensory are also intact. Cranial nerves II through XII grossly intact. Symmetrical smile. Normal speech, normal gait. PSYCH: Normal mood, normal affect. SKIN: Warm, Dry, normal turgor, no rashes or lesions noted. Limitations: no limitations Course Vital Signs 09/30/20 14:32 Temperature 98.1 F Pulse Rate 83 Respiratory 18 Rate Blood Pressure 124/80 O2 Sat by Pulse 97 Oximetry Medical Decision Making - Medical Decision Making Patient is a 60-year-old female presenting for right-sided low back pain with radiation towards the right side. She does have history of chronic right-sided back pain but this felt different to her. No injuries or trauma. Her vitals are stable. No history of kidney stones. Labs are within normal limits, normal white count, urine shows no evidence of infection. CT of abdomen and pelvis shows a normal appendix, no kidney stones, no suspicious abnormalities for right flank pain. Patient given some fluids and Toradol, she's been resting comfortably. On reexamination, she was found sleeping. I discussed with renato nuñez this is most likely coming from her chronic back pain. I recommended anti- inflammatories. I will give her a starter pack of tramadol to go home with. She does have Motrin 800 at home already. If symptoms persist she can follow-up with her pain doctor. She is agreeable this plan of care. She is stable for discharge. Return parameters were discussed with her and she verbalized understanding. Case discussed with Dr. Tiwari. - Lab Data Result diagrams: 09/30/20 15:46 09/30/20 15:46 Lab Results 09/30/20 09/30/20 09/30/20 Range/Units 15:46 15:46 15:46 WBC 8.8 (3.8-10.6) k/uL RBC 5.78 H (3.80-5.40) m/uL Hgb 18.1 H (11.4-16.0) gm/dL Hct 54.2 H (34.0-46.0) % MCV 93.7 (80.0-100.0) fL MCH 31.3 (25.0-35.0) pg MCHC 33.4 (31.0-37.0) g/dL RDW 14.0 (11.5-15.5) % Plt Count 244 (150-450) k/uL MPV 7.9 Neutrophils % 62 % Lymphocytes % 27 % Monocytes % 8 % Eosinophils % 1 % Basophils % 0 % Neutrophils # 5.4 (1.3-7.7) k/uL Lymphocytes # 2.4 (1.0-4.8) k/uL Monocytes # 0.7 (0-1.0) k/uL Eosinophils # 0.0 (0-0.7) k/uL Basophils # 0.0 (0-0.2) k/uL Sodium 136 L (137-145) mmol/L Potassium 5.4 H (3.5-5.1) mmol/L Chloride 105 (98-107) mmol/L Carbon Dioxide 24 (22-30) mmol/L Anion Gap 7 mmol/L BUN 18 H (7-17) mg/dL Creatinine 0.65 (0.52-1.04) mg/dL Est GFR (CKD-EPI)AfAm >90 (>60 ml/min/1.73 sqM) Est GFR (CKD-EPI)NonAf >90 (>60 ml/min/1.73 sqM) Glucose 96 (74-99) mg/dL Calcium 9.1 (8.4-10.2) mg/dL Total Bilirubin 1.2 (0.2-1.3) mg/dL AST 29 (14-36) U/L ALT 6 (4-34) U/L Alkaline Phosphatase 79 (38-126) U/L Troponin I (0.000-0.034) ng/mL Total Protein 7.0 (6.3-8.2) g/dL Albumin 4.2 (3.5-5.0) g/dL Urine Color Dark Yellow Urine Appearance Clear (Clear) Urine pH 5.5 (5.0-8.0) Ur Specific [place] 1.038 H (1.001-1.035) Urine Protein 1+ H (Negative) Urine Glucose (UA) Negative (Negative) Urine Ketones Trace H (Negative) Urine Blood Negative (Negative) Urine Nitrite Negative (Negative) Urine Bilirubin 1+ H (Negative) Urine Urobilinogen 6.0 (<2.0) mg/dL Ur Leukocyte Esterase Trace H (Negative) Urine RBC 4 (0-5) /hpf Urine WBC 1 (0-5) /hpf Ur Squamous Epith Cells 2 (0-4) /hpf Urine Bacteria Rare H (None) /hpf Urine Mucus Many H (None) /hpf 09/30/20 Range/Units 15:46 WBC (3.8-10.6) k/uL RBC (3.80-5.40) m/uL Hgb (11.4-16.0) gm/dL Hct (34.0-46.0) % MCV (80.0-100.0) fL MCH (25.0-35.0) pg MCHC (31.0-37.0) g/dL RDW (11.5-15.5) % Plt Count (150-450) k/uL MPV Neutrophils % % Lymphocytes % % Monocytes % % Eosinophils % % Basophils % % Neutrophils # (1.3-7.7) k/uL Lymphocytes # (1.0-4.8) k/uL Monocytes # (0-1.0) k/uL Eosinophils # (0-0.7) k/uL Basophils # (0-0.2) k/uL Sodium (137-145) mmol/L Potassium (3.5-5.1) mmol/L Chloride (98-107) mmol/L Carbon Dioxide (22-30) mmol/L Anion Gap mmol/L BUN (7-17) mg/dL Creatinine (0.52-1.04) mg/dL Est GFR (CKD-EPI)AfAm (>60 ml/min/1.73 sqM) Est GFR (CKD-EPI)NonAf (>60 ml/min/1.73 sqM) Glucose (74-99) mg/dL Calcium (8.4-10.2) mg/dL Total Bilirubin (0.2-1.3) mg/dL AST (14-36) U/L ALT (4-34) U/L Alkaline Phosphatase (38-126) U/L Troponin I <0.012 (0.000-0.034) ng/mL Total Protein (6.3-8.2) g/dL Albumin (3.5-5.0) g/dL Urine Color Urine Appearance (Clear) Urine pH (5.0-8.0) Ur Specific [place] (1.001-1.035) Urine Protein (Negative) Urine Glucose (UA) (Negative) Urine Ketones (Negative) Urine Blood (Negative) Urine Nitrite (Negative) Urine Bilirubin (Negative) Urine Urobilinogen (<2.0) mg/dL Ur Leukocyte Esterase (Negative) Urine RBC (0-5) /hpf Urine WBC (0-5) /hpf Ur Squamous Epith Cells (0-4) /hpf Urine Bacteria (None) /hpf Urine Mucus (None) /hpf Disposition Clinical Impression: Strain of lumbar region Disposition: HOME SELF-CARE Condition: Stable Instructions (If sedation given, give patient instructions): Acute Low Back Pain (ED) Additional Instructions: Please return to the Emergency Department if symptoms worsen or any other concerns. Trial of heat and/or ice to the area. Motrin for discomfort. Follow-up with your pain doctor as discussed. Is patient prescribed a controlled substance at d/c from ED?: No Referrals: Pretty Guthrie MD [Primary Care Provider] - 1-2 days Time of Disposition: 16:45
[2020-09-30 16:04] LABS: Basophils % (A) 0 %; Eosinophils % (A) 1 %; HCT 54.2 % (34.0-46.0); HGB 18.1 gm/dL (11.4-16.0); Lymphocytes # (A) 2.4 k/uL (1.0-4.8); Lymphocytes % (A) 27 %; MCH 31.3 pg (25.0-35.0); MCHC 33.4 g/dL (31.0-37.0); MCV 93.7 fL (80.0-100.0); Mean Platelet Volume 7.9; Monocytes # (A) 0.7 k/uL (0-1.0); Monocytes % (A) 8 %; Neutrophils # (A) 5.4 k/uL (1.3-7.7); Neutrophils % (A) 62 %; Platelet Count 244 k/uL (150-450); RBC 5.78 m/uL (3.80-5.40); WBC 8.8 k/uL (3.8-10.6)
[2020-09-30 16:11] LABS: Appearance,Urine Clear (Clear); Bacteria,Urine Rare /hpf; Bilirubin,Urine 1+ (Negative); Blood,Urine Negative (Negative); Color,Urine Dark Yellow; Glucose,Urine (UA) Negative (Negative); Ketones,Urine Trace (Negative); Leukocyte Esterase,Urine Trace (Negative); Mucus,Urine Many /hpf; Nitrite,Urine Negative (Negative); PH, Urine 5.5 (5.0-8.0); Protein,Urine 1+ (Negative); RBC,Urine 4 /hpf (0-5); Specific Gravity,Urine 1.038 (1.001-1.035); Squamous Epithelial Cell,Urine 2 /hpf (0-4); WBC,Urine 1 /hpf (0-5)
[2020-09-30 16:16] LABS: ALT 6 U/L (4-34); AST 29 U/L (14-36); African American GFR (CKD) >90 (>60 ml/min/1.73 sqM); Albumin 4.2 g/dL (3.5-5.0); Alkaline Phosphatase 79 U/L (38-126); Anion Gap 7 mmol/L; Blood Urea Nitrogen 18 mg/dL (7-17); Calcium 9.1 mg/dL (8.4-10.2); Carbon Dioxide 24 mmol/L (22-30); Chloride 105 mmol/L (98-107); Glucose 96 mg/dL (74-99); Non-African American GFR(CKD) >90 (>60 ml/min/1.73 sqM); Sodium 136 mmol/L (137-145); Total Bilirubin 1.2 mg/dL (0.2-1.3)
[2020-09-30 16:23] LABS: Potassium 5.4 mmol/L (3.5-5.1)
--- NOTE | 2020-09-30 16:34 | CT ---
EXAMINATION TYPE: CT abdomen pelvis wo con DATE OF EXAM: 09/30/2020 COMPARISON: 09/06/2016, pelvis 09/17/2018 INDICATION: Right flank pain. DLP: 2223 mGycm, Automated exposure control for dose reduction was used. CONTRAST: 0 mL of Isovue 300. Study performed without Oral Contrast TECHNIQUE: Axial images were obtained from above the diaphragm to the pubic rami in the axial plane a t 5 mm thick sections. Reconstructed images are reviewed on the computer in the coronal plane. FINDINGS: Limited CT sections are obtained the lung bases. The lung bases are clear. Small hiatal hernia is p resent CT ABDOMEN: Liver: Normal Spleen: Prior trauma spleen is likely present. There are some dense areas which may be metallic fragm ents. There appears to be residual spleen which is small and somewhat lobular. Splenule immediately a djacent. Pancreas: Normal Adrenal glands: The adrenal glands are normal. Gallbladder: Normal Kidneys: No masses are evident. No hydronephrosis is present. Small cortical renal cyst in the uppe r medial left kidney measures 1.7 cm. No renal stones are evident. Aorta: Vascular calcification is within the aorta. Inferior vena cava: Normal. CT PELVIS: Loops of bowel within the abdomen and pelvis are normal. This study is performed without oral con trast limiting bowel evaluation. Appendix: Normal as visualized. Urinary bladder: Decompressed limiting evaluation. This is further limited with a right hip prosthesi s causing beam hardening artifact. Genitourinary structures: Uterus and ovaries are not identified. Osseous structures: No suspicious lytic or sclerotic lesions. Degenerative changes are within the lum bar spine. IMPRESSIONS: 1. Normal appendix. 2. No suspicious abnormalities to account for right flank pain. 3. The remaining changes are stable from comparisons.
[2020-09-30] MEDS ORDERED: traMADol 50 MG STARTER PACK 3 TAB BTL PO STA (16:45)
[2020-09-30 17:00] VITALS: BP 134/82; PULSE 74
== END 2020-09-30 17:00 | disposition home or self-care (01) ==
LOC: EC 14:30
DX: S39.012A Strain of muscle, fascia and tendon of lower back, initial encounter (principal); F17.200 Nicotine dependence, unspecified, uncomplicated; Z79.51 Long term (current) use of inhaled steroids; Z79.890 Hormone replacement therapy; Z79.899 Other long term (current) drug therapy; X58.XXXA Exposure to other specified factors, initial encounter
CPT/HCPCS: 36415; 80053; 84484; 85025; 81001; 74176; 99284; J1885

== ENCOUNTER → 2020-11-09 | Outpatient (CLI) | payer BC ==
--- NOTE | 2020-11-11 12:14 | MM ---
Reason for exam: screening (asymptomatic). Last mammogram was performed 1 year ago. History: Patient is postmenopausal. Family history of breast cancer in maternal grandmother. Physical Findings: A clinical breast exam by your physician is recommended on an annual basis and results should be correlated with mammographic findings. MG 3D Screening Mammo W/Cad Bilateral CC and MLO view(s) were taken. Prior study comparison: November 07, 2019, bilateral MG 3d screening mammo w/cad. August 28, 2018, bilateral MG 3d screening mammo w/cad. No significant changes when compared with prior studies. ASSESSMENT: Benign, BI-RAD 2 RECOMMENDATION: Routine screening mammogram of both breasts in 1 year.
== END | disposition home or self-care (01) ==
LOC: RADMAMWWP 12:27
PROVIDERS: ATTEND Family Medicine
DX: Z12.31 Encounter for screening mammogram for malignant neoplasm of breast (principal); Z78.0 Asymptomatic menopausal state; Z80.3 Family history of malignant neoplasm of breast
CPT/HCPCS: 77063; 77067

== ENCOUNTER 2021-06-30 14:20 | Emergency (ER) | payer BC ==
[2021-06-30 15:09] VITALS: BP 136/77; PULSE 70; RESP 18; TEMP 97.8
--- NOTE | 2021-06-30 15:54 | CT ---
EXAMINATION TYPE: CT brain wo con DATE OF EXAM: 06/30/2021 HISTORY: Left sided weakness. CT DLP: 1276.4 mGycm. Automated Exposure Control for Dose Reduction was Utilized. TECHNIQUE: CT scan of the head is performed without contrast. COMPARISON: CT brain June 05, 2016. FINDINGS: There is no acute intracranial hemorrhage. There is mild diffuse ventricular and sulcal p rominence consistent with diffuse age-related cerebral atrophy. Old infarct or encephalomalacia invol ving the right temporal lobe extending to the parietal region is now present new from 2017 study. Thi s causes right-sided ex vacuo dilatation and right-sided midline shift. The globes are intact and the visualized sinuses are clear. IMPRESSION: No acute intracranial hemorrhage. There is significant old right temporoparietal lobe i nfarct with volume loss new from the 2017 study.
--- NOTE | 2021-06-30 15:57 | XR ---
EXAMINATION TYPE: XR chest 2V DATE OF EXAM: 06/30/2021 COMPARISON: Chest x-ray August 29, 2018 HISTORY: Weakness and near syncope. TECHNIQUE: Frontal and lateral views of the chest are obtained. FINDINGS: There is chronic parenchymal change without suspicious focal air space opacity, pleural ef fusion, or pneumothorax seen. Bilateral hilar prominence consistent with underlying pulmonary hyperte nsion is redemonstrated. The cardiac silhouette size is stable and within normal limits. The osseou s structures are intact. Embolization coils in the left upper quadrant are redemonstrated. IMPRESSION: Chronic changes without acute pulmonary process.
[2021-06-30 16:01] LABS: INR 0.9 (<1.2); Partial Thromboplastin Time 25.3 sec (22.0-30.0)
[2021-06-30 16:06] LABS: ALT 7 U/L (4-34); AST 22 U/L (14-36); African American GFR (CKD) >90 (>60 ml/min/1.73 sqM); Albumin 4.5 g/dL (3.5-5.0); Alkaline Phosphatase 115 U/L (38-126); Anion Gap 8 mmol/L; Blood Urea Nitrogen 15 mg/dL (7-17); Calcium 9.6 mg/dL (8.4-10.2); Carbon Dioxide 27 mmol/L (22-30); Chloride 104 mmol/L (98-107); Glucose 81 mg/dL (74-99); Non-African American GFR(CKD) 86 (>60 ml/min/1.73 sqM); Potassium 4.3 mmol/L (3.5-5.1); Sodium 139 mmol/L (137-145); Total Bilirubin 0.9 mg/dL (0.2-1.3)
[2021-06-30 16:24] LABS: WBC 10.2 k/uL (3.8-10.6)
[2021-06-30 16:25] LABS: HCT 63.7 % (34.0-46.0); HGB 19.6 gm/dL (11.4-16.0); MCH 29.3 pg (25.0-35.0); MCHC 30.8 g/dL (31.0-37.0); MCV 95.1 fL (80.0-100.0); Mean Platelet Volume 7.6; Platelet Count 305 k/uL (150-450); RBC 6.69 m/uL (3.80-5.40); RDW 13.9 % (11.5-15.5)
[2021-06-30 16:26] LABS: Basophils # (A) 0.2 k/uL (0-0.2); Basophils % (A) 2 %; Eosinophils % (A) 0 %; Lymphocytes % (A) 30 %; Monocytes # (A) 0.9 k/uL (0-1.0); Monocytes % (A) 9 %; Neutrophils # (A) 5.9 k/uL (1.3-7.7); Neutrophils % (A) 57 %
[2021-06-30] MEDS ORDERED: SODIUM CHLORIDE 0.9% 1,000 ML IV ONE (16:37)
--- NOTE | 2021-06-30 17:11 | ED ---
Weakness HPI - General Source: patient, family, RN notes reviewed Mode of arrival: ambulatory Limitations: no limitations - History of Present Illness MD Complaint: focal weakness Onset/Timin -: days(s) <Clemencia Davila - Last Filed: 06/30/21 20:25> <Corey Hampton - Last Filed: 06/30/21 20:43> - General Chief complaint: Weakness Stated complaint: Feels like she is going to pass out Time Seen by Provider: 06/30/21 16:24 - History of Present Illness Initial comments: This is a 61-year-old female presents who presents to the emergency department for weakness. States that 2 days ago, she began to develop mild left-sided weakness. She has weakness at baseline, however this was slightly worse than normal. She is concerned because she had a stroke 5 years ago and wanted to make sure that this was not happening again. Not currently taking any blood thinners. Today, she felt like she might pass out and has a foggy head. She also has a slight increase in shortness of breath. Denies any chest pain. She does live alone, however she has a friend who is able to stay with her. She did have a problem when changing pharmacies recently, and was off of all of her medication for 2 days, and restarted taking them all again 4 days ago. (Clemencia Davila) - Related Data Home Medications Medication Instructions Recorded Confirmed Albuterol Sulfate [Ventolin HFA] 2 puff INHALATION RT-Q4H PRN 05/03/16 09/30/20 Levothyroxine Sodium [Synthroid] 100 mcg PO DAILY 05/03/16 09/30/20 Gabapentin [Neurontin] 900 mg PO TID 08/29/18 09/30/20 ARIPiprazole [Abilify] 2 mg PO HS 09/30/20 09/30/20 Cholecalciferol (Vitamin D3) 125 mcg PO FR 09/30/20 09/30/20 [Vitamin D3 (125 MCG = 50,000 IU)] DULoxetine HCL [Cymbalta] 60 mg PO DAILY 09/30/20 09/30/20 Ibuprofen [Motrin Ib] 800 mg PO Q8H PRN 09/30/20 09/30/20 Saxenda 6mg/Ml 3 mg SQ DAILY 09/30/20 09/30/20 Tiotropium 18 Mcg/Puff [Spiriva] 1 cap PO RT-DAILY 09/30/20 09/30/20 Allergies Allergy/AdvReac Type Severity Reaction Status Date / Time vancomycin Allergy Red Man Verified 06/30/21 15:10 Syndrome Review of Systems ROS Other: All systems not noted in ROS Statement are negative. Constitutional: Denies: fever, chills ENT: Denies: ear pain, throat pain Respiratory: Reports: dyspnea. Denies: cough Cardiovascular: Denies: chest pain, palpitations Endocrine: Reports: fatigue Gastrointestinal: Denies: abdominal pain, nausea, vomiting, diarrhea Genitourinary: Denies: urgency, dysuria Musculoskeletal: Denies: back pain Skin: Denies: rash Neurological: Reports: weakness <Clemencia Davila - Last Filed: 06/30/21 20:25> ROS Other: All systems not noted in ROS Statement are negative. <Corey Hampton - Last Filed: 06/30/21 20:43> ROS Statement: Those systems with pertinent positive or pertinent negative responses have been documented in the HPI. Past Medical History Past Medical History: CVA/TIA, Thyroid Disorder Additional Past Medical History / Comment(s): OCCASIONAL LEG SWELLING crps in ll e, History of Any Multi-Drug Resistant Organisms: None Reported Past Surgical History: Section, Hysterectomy, Joint Replacement Additional Past Surgical History / Comment(s): MARY KNEE REPLACEMENTS, RT HIP REPLACEMENT, c-secx2 Additional Past Anesthesia/Blood Transfusion Reaction / Comment(s): "HARD TIME WAKING UP" Past Psychological History: Anxiety Smoking Status: Current every day smoker Past Alcohol Use History: Rare Past Drug Use History: None Reported - Past Family History Mother Family Medical History: Cancer Additional Family Medical History / Comment(s): LYMPHOMA <Clemencia Davila - Last Filed: 06/30/21 20:25> General Exam Limitations: no limitations General appearance: alert, in no apparent distress Head exam: Present: atraumatic, normocephalic, normal inspection ENT exam: Present: normal exam, normal oropharynx, mucous membranes moist, TM's normal bilaterally, normal external ear exam Neck exam: Present: normal inspection. Absent: tenderness, meningismus, lymphadenopathy Respiratory exam: Present: normal lung sounds bilaterally. Absent: respiratory distress, wheezes, rales, rhonchi, stridor Cardiovascular Exam: Present: regular rate, normal rhythm, normal heart sounds. Absent: systolic murmur, diastolic murmur, rubs, gallop, clicks GI/Abdominal exam: Present: soft, normal bowel sounds. Absent: distended, tenderness, guarding, rebound, rigid Neurological exam: Present: alert, oriented X3, CN II-XII intact Psychiatric exam: Present: normal affect, normal mood Skin exam: Present: warm, dry, intact, normal color. Absent: rash <Clemencia Davila - Last Filed: 06/30/21 20:25> Course Vital Signs 06/30/21 15:03 Temperature 97.8 F Pulse Rate 70 Respiratory 18 Rate Blood Pressure 136/77 O2 Sat by Pulse 95 Oximetry EKG Findings - EKG Comments: EKG Findings:: Normal sinus rhythm. Intraventricular conduction delay. Ventricular rate 68 BPM, KS interval 181 ms, QRS duration 142 ms, QTc 421 ms. <Clemencia Davila - Last Filed: 06/30/21 20:25> Medical Decision Making - Lab Data Result diagrams: 06/30/21 15:32 06/30/21 15:32 - Radiology Data Radiology results: report reviewed, image reviewed <Clemencia Davila - Last Filed: 06/30/21 20:25> - Lab Data Result diagrams: 06/30/21 15:32 06/30/21 15:32 <Corey Hampton - Last Filed: 06/30/21 20:43> - Medical Decision Making This is a 61-year-old female who presents the emergency department for an increase in weakness. CT of the head did not reveal any acute changes. Hemoglobin was elevated at 19.6. She does have a chronically elevated hemoglobin level, however this is elevated from baseline. She also had an elevated d-dimer of 0.66. CTA of the chest was obtained, which did not identify a pulmonary embolus or other acute process. UA was negative and she tested negative for Covid and influenza. Discussed with the patient that at this time, we are not finding a cause for her increase in weakness. It is possible that this is related to going off of her medication for 2 days. This may also be re lated to dehydration due to the elevated hemoglobin level. Patient was given the option to stay for observation given her age and complex medical history, or go home with strict return precautions. Patient requests discharge home. She was originally given Toradol for her headache, however this was not effective. Morphine and Decadron were then ordered. Patient will be discharged after medication administration and if alternative or additional medications are needed, patient care will be transferred to Dr. Hampton. She does not have a history of migraines, this is a typical headache for her. Return precautions reviewed in depth, the patient is instructed to return to the emergency department with any new, worsening, or concerning symptoms. Patient verbalized understanding. This case was discussed in detail with the attending ED physician. Presentation, findings, and treatment plan discussed in detail as well. (Clemencia Davila) patient discharged home after administering pain medications. discharged in stable condition. discussed and reviewed case with MLP. (Corey Hampton) - Lab Data Lab Results 06/30/21 06/30/21 06/30/21 Range/Units 15:32 15:32 15:32 WBC 10.2 (3.8-10.6) k/uL RBC 6.69 H (3.80-5.40) m/uL Hgb 19.6 H* (11.4-16.0) gm/dL Hct 63.7 H* (34.0-46.0) % MCV 95.1 (80.0-100.0) fL MCH 29.3 (25.0-35.0) pg MCHC 30.8 L (31.0-37.0) g/dL RDW 13.9 (11.5-15.5) % Plt Count 305 (150-450) k/uL MPV 7.6 Neutrophils % 57 % Lymphocytes % 30 % Monocytes % 9 % Eosinophils % 0 % Basophils % 2 % Neutrophils # 5.9 (1.3-7.7) k/uL Lymphocytes # 3.0 (1.0-4.8) k/uL Monocytes # 0.9 (0-1.0) k/uL Eosinophils # 0.0 (0-0.7) k/uL Basophils # 0.2 (0-0.2) k/uL PT 10.0 (9.0-12.0) sec INR 0.9 (<1.2) APTT 25.3 (22.0-30.0) sec D-Dimer (<0.60) mg/L FEU Sodium 139 (137-145) mmol/L Potassium 4.3 (3.5-5.1) mmol/L Chloride 104 (98-107) mmol/L Carbon Dioxide 27 (22-30) mmol/L Anion Gap 8 mmol/L BUN 15 (7-17) mg/dL Creatinine 0.75 (0.52-1.04) mg/dL Est GFR (CKD-EPI)AfAm >90 (>60 ml/min/1.73 sqM) Est GFR (CKD-EPI)NonAf 86 (>60 ml/min/1.73 sqM) Glucose 81 (74-99) mg/dL Plasma Lactic Acid Abdiel (0.7-2.0) mmol/L Calcium 9.6 (8.4-10.2) mg/dL Total Bilirubin 0.9 (0.2-1.3) mg/dL AST 22 (14-36) U/L ALT 7 (4-34) U/L Alkaline Phosphatase 115 (38-126) U/L Troponin I (0.000-0.034) ng/mL NT-Pro-B Natriuret Pep pg/mL Total Protein 8.0 (6.3-8.2) g/dL Albumin 4.5 (3.5-5.0) g/dL TSH (0.465-4.680) mIU/L Urine Color Urine Appearance (Clear) Urine pH (5.0-8.0) Ur Specific [place] (1.001-1.035) Urine Protein (Negative) Urine Glucose (UA) (Negative) Urine Ketones (Negative) Urine Blood (Negative) Urine Nitrite (Negative) Urine Bilirubin (Negative) Urine Urobilinogen (<2.0) mg/dL Ur Leukocyte Esterase (Negative) Coronavirus (PCR) (Not Detectd) Influenza Type A RNA (Not Detectd) Influenza Type B (PCR) (Not Detectd) 06/30/21 06/30/21 06/30/21 Range/Units 15:32 15:32 17:05 WBC (3.8-10.6) k/uL RBC (3.80-5.40) m/uL Hgb (11.4-16.0) gm/dL Hct (34.0-46.0) % MCV (80.0-100.0) fL MCH (25.0-35.0) pg MCHC (31.0-37.0) g/dL RDW (11.5-15.5) % Plt Count (150-450) k/uL MPV Neutrophils % % Lymphocytes % % Monocytes % % Eosinophils % % Basophils % % Neutrophils # (1.3-7.7) k/uL Lymphocytes # (1.0-4.8) k/uL Monocytes # (0-1.0) k/uL Eosinophils # (0-0.7) k/uL Basophils # (0-0.2) k/uL PT (9.0-12.0) sec INR (<1.2) APTT (22.0-30.0) sec D-Dimer 0.66 H (<0.60) mg/L FEU Sodium (137-145) mmol/L Potassium (3.5-5.1) mmol/L Chloride (98-107) mmol/L Carbon Dioxide (22-30) mmol/L Anion Gap mmol/L BUN (7-17) mg/dL Creatinine (0.52-1.04) mg/dL Est GFR (CKD-EPI)AfAm (>60 ml/min/1.73 sqM) Est GFR (CKD-EPI)NonAf (>60 ml/min/1.73 sqM) Glucose (74-99) mg/dL Plasma Lactic Acid Abdiel (0.7-2.0) mmol/L Calcium (8.4-10.2) mg/dL Total Bilirubin (0.2-1.3) mg/dL AST (14-36) U/L ALT (4-34) U/L Alkaline Phosphatase (38-126) U/L Troponin I <0.012 (0.000-0.034) ng/mL NT-Pro-B Natriuret Pep pg/mL Total Protein (6.3-8.2) g/dL Albumin (3.5-5.0) g/dL TSH (0.465-4.680) mIU/L Urine Color Yellow Urine Appearance Clear (Clear) Urine pH 5.5 (5.0-8.0) Ur Specific [place] 1.008 (1.001-1.035) Urine Protein Negative (Negative) Urine Glucose (UA) Negative (Negative) Urine Ketones Negative (Negative) Urine Blood Negative (Negative) Urine Nitrite Negative (Negative) Urine Bilirubin Negative (Negative) Urine Urobilinogen <2.0 (<2.0) mg/dL Ur Leukocyte Esterase Negative (Negative) Coronavirus (PCR) (Not Detectd) Influenza Type A RNA (Not Detectd) Influenza Type B (PCR) (Not Detectd) 06/30/21 06/30/21 06/30/21 Range/Units 17:19 17:19 17:24 WBC (3.8-10.6) k/uL RBC (3.80-5.40) m/uL Hgb (11.4-16.0) gm/dL Hct (34.0-46.0) % MCV (80.0-100.0) fL MCH (25.0-35.0) pg MCHC (31.0-37.0) g/dL RDW (11.5-15.5) % Plt Count (150-450) k/uL MPV Neutrophils % % Lymphocytes % % Monocytes % % Eosinophils % % Basophils % % Neutrophils # (1.3-7.7) k/uL Lymphocytes # (1.0-4.8) k/uL Monocytes # (0-1.0) k/uL Eosinophils # (0-0.7) k/uL Basophils # (0-0.2) k/uL PT (9.0-12.0) sec INR (<1.2) APTT (22.0-30.0) sec D-Dimer (<0.60) mg/L FEU Sodium (137-145) mmol/L Potassium (3.5-5.1) mmol/L Chloride (98-107) mmol/L Carbon Dioxide (22-30) mmol/L Anion Gap mmol/L BUN (7-17) mg/dL Creatinine (0.52-1.04) mg/dL Est GFR (CKD-EPI)AfAm (>60 ml/min/1.73 sqM) Est GFR (CKD-EPI)NonAf (>60 ml/min/1.73 sqM) Glucose (74-99) mg/dL Plasma Lactic Acid Abdiel (0.7-2.0) mmol/L Calcium (8.4-10.2) mg/dL Total Bilirubin (0.2-1.3) mg/dL AST (14-36) U/L ALT (4-34) U/L Alkaline Phosphatase (38-126) U/L Troponin I (0.000-0.034) ng/mL NT-Pro-B Natriuret Pep pg/mL Total Protein (6.3-8.2) g/dL Albumin (3.5-5.0) g/dL TSH 3.330 (0.465-4.680) mIU/L Urine Color Urine Appearance (Clear) Urine pH (5.0-8.0) Ur Specific [place] (1.001-1.035) Urine Protein (Negative) Urine Glucose (UA) (Negative) Urine Ketones (Negative) Urine Blood (Negative) Urine Nitrite (Negative) Urine Bilirubin (Negative) Urine Urobilinogen (<2.0) mg/dL Ur Leukocyte Esterase (Negative) Coronavirus (PCR) Not Detected (Not Detectd) Influenza Type A RNA Not Detected (Not Detectd) Influenza Type B (PCR) Not Detected (Not Detectd) 06/30/21 06/30/21 Range/Units 17:25 17:39 WBC (3.8-10.6) k/uL RBC (3.80-5.40) m/uL Hgb (11.4-16.0) gm/dL Hct (34.0-46.0) % MCV (80.0-100.0) fL MCH (25.0-35.0) pg MCHC (31.0-37.0) g/dL RDW (11.5-15.5) % Plt Count (150-450) k/uL MPV Neutrophils % % Lymphocytes % % Monocytes % % Eosinophils % % Basophils % % Neutrophils # (1.3-7.7) k/uL Lymphocytes # (1.0-4.8) k/uL Monocytes # (0-1.0) k/uL Eosinophils # (0-0.7) k/uL Basophils # (0-0.2) k/uL PT (9.0-12.0) sec INR (<1.2) APTT (22.0-30.0) sec D-Dimer (<0.60) mg/L FEU Sodium (137-145) mmol/L Potassium (3.5-5.1) mmol/L Chloride (98-107) mmol/L Carbon Dioxide (22-30) mmol/L Anion Gap mmol/L BUN (7-17) mg/dL Creatinine (0.52-1.04) mg/dL Est GFR (CKD-EPI)AfAm (>60 ml/min/1.73 sqM) Est GFR (CKD-EPI)NonAf (>60 ml/min/1.73 sqM) Glucose (74-99) mg/dL Plasma Lactic Acid Abdiel 1.2 (0.7-2.0) mmol/L Calcium (8.4-10.2) mg/dL Total Bilirubin (0.2-1.3) mg/dL AST (14-36) U/L ALT (4-34) U/L Alkaline Phosphatase (38-126) U/L Troponin I (0.000-0.034) ng/mL NT-Pro-B Natriuret Pep 52 pg/mL Total Protein (6.3-8.2) g/dL Albumin (3.5-5.0) g/dL TSH (0.465-4.680) mIU/L Urine Color Urine Appearance (Clear) Urine pH (5.0-8.0) Ur Specific [place] (1.001-1.035) Urine Protein (Negative) Urine Glucose (UA) (Negative) Urine Ketones (Negative) Urine Blood (Negative) Urine Nitrite (Negative) Urine Bilirubin (Negative) Urine Urobilinogen (<2.0) mg/dL Ur Leukocyte Esterase (Negative) Coronavirus (PCR) (Not Detectd) Influenza Type A RNA (Not Detectd) Influenza Type B (PCR) (Not Detectd) Disposition Is patient prescribed a controlled substance at d/c from ED?: No <Clemencia Davila - Last Filed: 06/30/21 20:25> <Corey Hampton - Last Filed: 06/30/21 20:43> Clinical Impression: Weakness of left side of body Disposition: HOME SELF-CARE Condition: Good Instructions (If sedation given, give patient instructions): Weakness (ED) Additional Instructions: Return to the emergency department with any new, worsening, or concerning symptoms. Make sure you stay with a friend or family member until your symptoms improve. Be sure to drink lots of water. Follow-up with your primary care provider in 1 to 2 days. Referrals: Pretty Guthrie MD [Primary Care Provider] - 1-2 days
[2021-06-30 17:19] LABS: Appearance,Urine Clear (Clear); Bilirubin,Urine Negative (Negative); Blood,Urine Negative (Negative); Color,Urine Yellow; Glucose,Urine (UA) Negative (Negative); Ketones,Urine Negative (Negative); Leukocyte Esterase,Urine Negative (Negative); Nitrite,Urine Negative (Negative); PH, Urine 5.5 (5.0-8.0); Protein,Urine Negative (Negative); Specific Gravity,Urine 1.008 (1.001-1.035); Urobilinogen,Urine <2.0 mg/dL (<2.0)
[2021-06-30] MEDS ORDERED: KETOROLAC 15 MG/ML 1 ML VIAL IVP STA (17:43)
--- NOTE | 2021-06-30 18:28 | CT ---
EXAMINATION TYPE: CT chest angio for PE with contrast and with 3-D reconstruction renderings DATE OF EXAM: 06/30/2021 COMPARISON: 08/30/2018 HISTORY: Shortness of breath and weakness. CT DLP: 869.4 mGycm. Automated Exposure Control for Dose Reduction was Utilized. CONTRAST: CTA scan of the thorax is performed with IV Contrast, patient injected with 100 mL of Isovu e 370, MIP Images are created on CT scanner and reviewed. 3D reconstructed images are created on an independent workstation and reviewed. FINDINGS: LUNGS: The lungs are grossly clear, there is no concerning parenchymal mass or nodule identified. T here is no pleural effusion or pneumothorax seen. The tracheobronchial tree is patent. MEDIASTINUM: There is satisfactory enhancement of the pulmonary artery and its branches; there is no CT evidence for pulmonary embolism. The central pulmonary arteries are dilated in caliber, which can correlate with the clinical diagnosis of pulmonary hypertension. No cardiomegaly or chamber enlargeme nt. No pericardial effusion. No acute aortic finding. No adenopathy. OTHER: No additional significant abnormality is seen. IMPRESSION: No acute process.
[2021-06-30] MEDS ORDERED: MORPHINE SULFATE 2 MG/ML SYRINGE IVP STA (19:13)
[2021-06-30] MEDS ORDERED: DEXAMETHASONE SOD PHOSPHATE 10 MG/ML 1 ML VIAL IVP STA (19:13)
== END 2021-06-30 21:16 | disposition home or self-care (01) ==
LOC: EC 14:20
DX: R53.1 Weakness (principal); R79.89 Other specified abnormal findings of blood chemistry; R79.1 Abnormal coagulation profile; F17.200 Nicotine dependence, unspecified, uncomplicated; E07.9 Disorder of thyroid, unspecified; Z79.890 Hormone replacement therapy; Z88.1 Allergy status to other antibiotic agents; Z20.822 Contact with and (suspected) exposure to COVID-19
CPT/HCPCS: 36415; 93005; 85379; 83880; 80053; 84443; 83605; 84484; 85025; 85610; 85730; 81003; 87502; 87635; 71046; 70450; 71275; 99285; 96374; 96375; 96361; J1100; J2270; J1885; Q9967

== ENCOUNTER 2021-08-05 15:57 | Emergency (ER) | payer BC, MEDICARE ==
[2021-08-05 16:23] VITALS: BP 130/79; PULSE 77; RESP 20; TEMP 98.1
--- NOTE | 2021-08-05 18:26 | ED ---
General Adult HPI - General Chief complaint: Extremity Problem,Nontraumatic Stated complaint: possible blood clot R Leg Time Seen by Provider: 08/05/21 17:51 Source: patient Mode of arrival: ambulatory Limitations: no limitations - History of Present Illness Initial comments: Dictation was produced using [employer] dictation software. please excuse any grammatical, word or spelling errors. Chief Complaint: 61-year-old female presents to the emergency department for right-sided calf pain History of Present Illness: 61-year-old female presents emergency department for right-sided calf pain. She is worried that she has a blood clot. She noticed a red charlie to the medial calf area. States it is slightly painful. She however reports that her pain is a little bit more posterior. Denies any popliteal or medial thigh pain. She reports she is having a blood clot. No chest pain or shortness of breath. The ROS documented in this emergency department record has been reviewed and confirmed by me. Those systems with pertinent positive or negative responses have been documented in the HPI. All other systems are other negative and/or noncontributory. PHYSICAL EXAM: General Impression: Alert and oriented x3, not in acute distress HEENT: Normocephalic atraumatic, extra-ocular movements intact, pupils equal and reactive to light bilaterally, mucous membranes moist. Cardiovascular: Heart regular rate and rhythm Chest: Able to complete full sentences, no retractions, no tachypnea Abdomen: abdomen soft, non-tender, non-distended, no organomegaly Musculoskeletal: Pulses present and equal in all extremities, no peripheral edema Motor: no focal deficits noted Neurological: CN II-XII grossly intact, no focal motor or sensory deficits noted Skin: Circumferential rash to the medial calf measuring approximately 2 x 2 centimeters. She does have palpatory pain medial to that posteriorly. Psych: Normal affect and mood ED course: 61-year-old female presents emergency Department with a right calf symptoms. She does have a rash however she does have some features to suspect DVT. Vital Signs upon arrival are within acceptable limits. Ultrasound is unremarkable for DVT. Patient given 5 day course of Keflex. Advised follow-up with primary care doctor. - Related Data Home Medications Medication Instructions Recorded Confirmed Albuterol Sulfate [Ventolin HFA] 2 puff INHALATION RT-Q4H PRN 05/03/16 09/30/20 Levothyroxine Sodium [Synthroid] 100 mcg PO DAILY 05/03/16 09/30/20 Gabapentin [Neurontin] 900 mg PO TID 08/29/18 09/30/20 ARIPiprazole [Abilify] 2 mg PO HS 09/30/20 09/30/20 Cholecalciferol (Vitamin D3) 125 mcg PO FR 09/30/20 09/30/20 [Vitamin D3 (125 MCG = 50,000 IU)] DULoxetine HCL [Cymbalta] 60 mg PO DAILY 09/30/20 09/30/20 Ibuprofen [Motrin Ib] 800 mg PO Q8H PRN 09/30/20 09/30/20 Saxenda 6mg/Ml 3 mg SQ DAILY 09/30/20 09/30/20 Tiotropium 18 Mcg/Puff [Spiriva] 1 cap PO RT-DAILY 09/30/20 09/30/20 Previous Rx's Medication Instructions Recorded Cephalexin [Keflex] 500 mg PO Q6HR 5 Days #20 cap 08/05/21 Allergies Allergy/AdvReac Type Severity Reaction Status Date / Time vancomycin Allergy Red Man Verified 08/05/21 16:23 Syndrome Review of Systems ROS Statement: Those systems with pertinent positive or pertinent negative responses have been documented in the HPI. ROS Other: All systems not noted in ROS Statement are negative. Past Medical History Past Medical History: CVA/TIA, Thyroid Disorder Additional Past Medical History / Comment(s): OCCASIONAL LEG SWELLING crps in ll e, History of Any Multi-Drug Resistant Organisms: None Reported Past Surgical History: Section, Hysterectomy, Joint Replacement Additional Past Surgical History / Comment(s): MARY KNEE REPLACEMENTS, RT HIP REPLACEMENT, c-secx2 Additional Past Anesthesia/Blood Transfusion Reaction / Comment(s): "HARD TIME WAKING UP" Past Psychological History: Anxiety Smoking Status: Current every day smoker Past Alcohol Use History: Rare Past Drug Use History: None Reported - Past Family History Mother Family Medical History: Cancer Additional Family Medical History / Comment(s): LYMPHOMA General Exam Limitations: no limitations Course Vital Signs 08/05/21 16:19 Temperature 98.1 F Pulse Rate 77 Respiratory 20 Rate Blood Pressure 130/79 O2 Sat by Pulse 95 Oximetry Disposition Clinical Impression: Cellulitis Disposition: HOME SELF-CARE Condition: Good Instructions (If sedation given, give patient instructions): Cellulitis (ED) Prescriptions: Cephalexin [Keflex] 500 mg PO Q6HR 5 Days #20 cap Is patient prescribed a controlled substance at d/c from ED?: No Referrals: Pretty Guthrie MD [Primary Care Provider] - 1-2 days
--- NOTE | 2021-08-05 18:59 | US ---
EXAMINATION TYPE: US venous doppler duplex LE RT DATE OF EXAM: 08/05/2021 6:51 PM COMPARISON: 2019 CLINICAL HISTORY: suspect DVT. Pain in right leg. Patient does not take blood thinners. Hx right knee replacement 2005. SIDE PERFORMED: Right TECHNIQUE: The lower extremity deep venous system is examined utilizing real time linear array sonog amilcar with graded compression, doppler sonography and color-flow sonography. VESSELS IMAGED: Common Femoral Vein Deep Femoral Vein Greater Saphenous Vein * Femoral Vein Popliteal Vein Small Saphenous Vein * Proximal Calf Veins (* superficial vessels) Right Leg: No evidence of DVT in veins imaged at this time. At patient's area of pain, within the ri ght medial de leon area, there appears to be internal echoes within superficial vessels. These tortuous vessels do not appear to compress completely. They show lack of color flow. IMPRESSION: 1. No evidence for deep vein thrombosis of the left lower extremity. 2. Dilated subcutaneous vessels within the area of patient's pain could represent thrombosed superfi cial veins, correlate clinically.
== END 2021-08-05 19:23 | disposition home or self-care (01) ==
LOC: EC 15:57
DX: L03.115 Cellulitis of right lower limb (principal); F17.200 Nicotine dependence, unspecified, uncomplicated; E07.9 Disorder of thyroid, unspecified; Z88.1 Allergy status to other antibiotic agents; Z79.890 Hormone replacement therapy
CPT/HCPCS: 99283

== ENCOUNTER → 2021-08-19 | Outpatient (CLI) | payer BC ==
--- NOTE | 2021-08-19 11:29 | MR ---
Are brain without contrast HISTORY: TIA, dizziness Multiplanar multisequence imaging obtained through the brain. Correlation CT brain 06/30/2021, prior MR brain 03/02/2018 her graft is no restricted diffusion. Patie nt's prior cerebrovascular accident with encephalomalacia is again noted and stable, white matter sig nal changes on inversion recovery T2-weighted sequences show similar appearance, there is ex vacuo ph enomenon of the right lateral ventricle, some scattered white matter hyperintensity is again noted on inversion recovery T2-weighted sequences. There is no evident hemorrhage or hydrocephalus. Orbits sh ow symmetric appearance. There are expected vascular flow voids present. Changes of Thornwaldt cyst a gain noted, stable. Paranasal sinuses are remarkable for inflammatory change in the ethmoid air cells . Corpus callosum, pituitary, cervical medullary junction, cerebellopontine angles within normal limi ts. IMPRESSION: Chronic cerebrovascular accident. Age-related changes of atrophy and chronic small vessel ischemia.
== END | disposition home or self-care (01) ==
LOC: RADMRIMAIN 08:05
PROVIDERS: ATTEND Psychiatry & Neurology Neurology
DX: I63.9 Cerebral infarction, unspecified (principal); I67.82 Cerebral ischemia; G31.9 Degenerative disease of nervous system, unspecified
CPT/HCPCS: 70551

== ENCOUNTER → 2021-11-10 | Outpatient (CLI) | payer BC, MEDICARE ==
--- NOTE | 2021-11-11 19:59 | MM ---
Reason for Exam: Screening (asymptomatic). Last screening mammogram was performed 12 month(s) ago. Patient History: Menarche at age 9. First Full-Term at age 23. Hysterectomy at age 35. Postmenopausal. Maternal grandmother had breast cancer. Risk Values: Birgit 5 year model risk: 1.5%. NCI Lifetime model risk: 7.0%. Prior Study Comparison: 08/28/2018 Bilateral Screening Mammogram, [facility]. 11/07/2019 Bilateral Screening Mammogram, [facility]. 11/09/2020 Bilateral Screening Mammogram, [facility]. Tissue Density: There are scattered fibroglandular densities. Findings: Analyzed By CAD. There is no suspicious group of microcalcifications or suspicious mass in either breast. Overall Assessment: Negative, BI-RAD 1 Management: Screening Mammogram of both breasts in 1 year. 1. Patient should continue monthly self breast exams. 2. A clinical breast exam by your physician is recommended on an annual basis. 3. This exam should not preclude additional follow-up of suspicious palpable abnormalities. Electronically signed and approved by: Guillermina Yanes M.D. Radiologist
== END | disposition home or self-care (01) ==
LOC: RADMAMWWP 10:54
PROVIDERS: ATTEND Family Medicine
DX: Z12.31 Encounter for screening mammogram for malignant neoplasm of breast (principal); Z78.0 Asymptomatic menopausal state; Z80.3 Family history of malignant neoplasm of breast
CPT/HCPCS: 77063; 77067

== ENCOUNTER 2021-11-17 13:06 | Inpatient (IN) | payer BC, MEDICARE ==
[2021-11-17] MEDS ORDERED: ASPIRIN 81 MG PO STA (13:57)
[2021-11-17] MEDS ORDERED: NITROGLYCERIN OINT 1 INCH/GM PACKET TOPICAL STA (13:57)
--- NOTE | 2021-11-17 14:02 | ED ---
General Adult HPI - General Chief complaint: Chest Pain Stated complaint: chest pain Time Seen by Provider: 11/17/21 13:40 Source: patient, RN notes reviewed, old records reviewed Mode of arrival: ambulatory Limitations: no limitations - History of Present Illness Initial comments: Is a 61-year-old female who presents emergency department with past medical history significant for thyroid issues and is a smoker. Patient comes in today because earlier today she started having chest pain she states there is a sharp pain lasts about 10 seconds and then she has a heaviness in her chest last about 5 minutes. Patient states she has some radiation of the pain into the neck though sometimes she feels as though the pain comes back and chest. Patient st ates she is somewhat short of breath when it occurs patient denies any increase in pain with deep breathing or moving. Patient denies any recent fever chills or cough. Patient denies any diaphoretic episodes. Patient any nausea. Patient any back pain or any abdominal pain. Patient denies lightheadedness or dizziness. Patient denies headache patient denies numbness weakness. Patient swelling to the legs or calf tenderness. Patient denies any history of diabetes hypertension or high cholesterol. Patient denies any family history of heart disease. - Related Data Home Medications Medication Instructions Recorded Confirmed Albuterol Sulfate [Ventolin HFA] 2 puff INHALATION RT-Q4H PRN 05/03/16 11/17/21 Levothyroxine Sodium [Synthroid] 100 mcg PO DAILY 05/03/16 11/17/21 Gabapentin [Neurontin] 600 mg PO TID 08/29/18 11/17/21 Cholecalciferol (Vitamin D3) 125 mcg PO ROWLAND 09/30/20 11/17/21 [Vitamin D3 (125 MCG = 50,000 IU)] ARIPiprazole [Abilify] 5 mg PO HS 11/17/21 11/17/21 Liraglutide [Saxenda] 3 mg SQ DAILY 11/17/21 11/17/21 Tiotropium [place] [Spiriva] 2 puff INHALATION RT-DAILY 11/17/21 11/17/21 Venlafaxine HCl ER [Effexor Xr] 150 mg PO DAILY 11/17/21 11/17/21 Allergies Allergy/AdvReac Type Severity Reaction Status Date / Time vancomycin AdvReac Red Man Verified 11/17/21 15:44 Syndrome Review of Systems ROS Statement: Those systems with pertinent positive or pertinent negative responses have been documented in the HPI. ROS Other: All systems not noted in ROS Statement are negative. Past Medical History Past Medical History: CVA/TIA, Thyroid Disorder Additional Past Medical History / Comment(s): OCCASIONAL LEG SWELLING crps in ll e, History of Any Multi-Drug Resistant Organisms: None Reported Past Surgical History: Section, Hysterectomy, Joint Replacement Additional Past Surgical History / Comment(s): MARY KNEE REPLACEMENTS, RT HIP REPLACEMENT, c-secx2 Additional Past Anesthesia/Blood Transfusion Reaction / Comment(s): "HARD TIME WAKING UP" Past Psychological History: Anxiety Smoking Status: Current every day smoker Past Alcohol Use History: Rare Past Drug Use History: None Reported - Past Family History Mother Family Medical History: Cancer Additional Family Medical History / Comment(s): LYMPHOMA General Exam - General Exam Comments Initial Comments: GENERAL: Patient is well-developed and well-nourished. Patient is nontoxic and well- hydrated and is in mild distress. ENT: Neck is soft and supple. No significant lymphadenopathy is noted. Oropharynx is clear. Moist mucous membranes. Neck has full range of motion without eliciting any pain. Pain along the sternocleidomastoid muscle on the left is somewhat reproducible according to patient. EYES: The sclera were anicteric and conjunctiva were pink and moist. Extraocular movements were intact and pupils were equal round and reactive to light. Eyelids were unremarkable. PULMONARY: Unlabored respirations. Good breath sounds bilaterally. No audible rales rhonchi or wheezing was noted. CARDIOVASCULAR: There is a regular rate and rhythm without any murmurs gallops or rubs. Chest pain is not reproducible ABDOMEN: Soft and nontender with normal bowel sounds. SKIN: Skin is clear with no lesions or rashes and otherwise unremarkable. NEUROLOGIC: Patient is alert and oriented x3. Cranial nerves II through XII are grossly intact. Motor and sensory are also intact. Normal speech, volume and content. Symmetrical smile. MUSCULOSKELETAL: Normal extremities with adequate strength and full range of motion. LYMPHATICS: No significant lymphadenopathy is noted PSYCHIATRIC: Normal psychiatric evaluation. Limitations: no limitations Course Vital Signs 11/17/21 13:23 Temperature 97.8 F Pulse Rate 77 Respiratory 22 Rate Blood Pressure 129/83 O2 Sat by Pulse 97 Oximetry Medical Decision Making - Medical Decision Making EKG shows sinus rhythm at 77 bpm DC interval 176 QRS is under treatment when QT interval 45 QTC is 437. Patient's EKG shows no ST segment elevation or depression. Patient's d-dimer was elevated this along with associated chest pain I decided to CT rule out PE. CT of the chest showed a large burn no pulmonary embolism on the right and a small one on the left lower lung. Patient was started on heparin high-dose immediately. I spoke with Dr. Carlos she agreed to see the patient on consult. I spoke with Dr. Amaro he agreed to admit and admitted the patient consult to Dr. Carlos consult the pulmonary and ordered ultrasound for the morning. - Lab Data Result diagrams: 11/17/21 14:34 11/17/21 14:34 Lab Results 11/17/21 11/17/21 11/17/21 Range/Units 14:34 14:34 14:34 WBC 7.6 (3.8-10.6) k/uL RBC 6.42 H (3.80-5.40) m/uL Hgb 19.2 H* (11.4-16.0) gm/dL Hct 60.1 H* (34.0-46.0) % MCV 93.7 (80.0-100.0) fL MCH 29.9 (25.0-35.0) pg MCHC 31.9 (31.0-37.0) g/dL RDW 14.3 (11.5-15.5) % Plt Count 230 (150-450) k/uL MPV 7.6 Neutrophils % 56 % Lymphocytes % 30 % Monocytes % 8 % Eosinophils % 0 % Basophils % 1 % Neutrophils # 4.3 (1.3-7.7) k/uL Lymphocytes # 2.3 (1.0-4.8) k/uL Monocytes # 0.6 (0-1.0) k/uL Eosinophils # 0.0 (0-0.7) k/uL Basophils # 0.1 (0-0.2) k/uL PT (9.0-12.0) sec INR (<1.2) APTT (22.0-30.0) sec D-Dimer (<0.60) mg/L FEU Sodium 138 (137-145) mmol/L Potassium 4.7 (3.5-5.1) mmol/L Chloride 102 (98-107) mmol/L Carbon Dioxide 25 (22-30) mmol/L Anion Gap 11 mmol/L BUN 13 (7-17) mg/dL Creatinine 0.72 (0.52-1.04) mg/dL Est GFR (CKD-EPI)AfAm >90 (>60 ml/min/1.73 sqM) Est GFR (CKD-EPI)NonAf >90 (>60 ml/min/1.73 sqM) Glucose 85 (74-99) mg/dL Calcium 9.2 (8.4-10.2) mg/dL Magnesium 2.2 (1.6-2.3) mg/dL Total Bilirubin 0.9 (0.2-1.3) mg/dL AST 21 (14-36) U/L ALT 7 (4-34) U/L Alkaline Phosphatase 108 (38-126) U/L Troponin I <0.012 (0.000-0.034) ng/mL Total Protein 7.2 (6.3-8.2) g/dL Albumin 4.4 (3.5-5.0) g/dL 11/17/21 11/17/21 Range/Units 15:53 15:53 WBC (3.8-10.6) k/uL RBC (3.80-5.40) m/uL Hgb (11.4-16.0) gm/dL Hct (34.0-46.0) % MCV (80.0-100.0) fL MCH (25.0-35.0) pg MCHC (31.0-37.0) g/dL RDW (11.5-15.5) % Plt Count (150-450) k/uL MPV Neutrophils % % Lymphocytes % % Monocytes % % Eosinophils % % Basophils % % Neutrophils # (1.3-7.7) k/uL Lymphocytes # (1.0-4.8) k/uL Monocytes # (0-1.0) k/uL Eosinophils # (0-0.7) k/uL Basophils # (0-0.2) k/uL PT 9.8 (9.0-12.0) sec INR 0.9 (<1.2) APTT 24.0 (22.0-30.0) sec D-Dimer 10.13 H (<0.60) mg/L FEU Sodium (137-145) mmol/L Potassium (3.5-5.1) mmol/L Chloride (98-107) mmol/L Carbon Dioxide (22-30) mmol/L Anion Gap mmol/L BUN (7-17) mg/dL Creatinine (0.52-1.04) mg/dL Est GFR (CKD-EPI)AfAm (>60 ml/min/1.73 sqM) Est GFR (CKD-EPI)NonAf (>60 ml/min/1.73 sqM) Glucose (74-99) mg/dL Calcium (8.4-10.2) mg/dL Magnesium (1.6-2.3) mg/dL Total Bilirubin (0.2-1.3) mg/dL AST (14-36) U/L ALT (4-34) U/L Alkaline Phosphatase (38-126) U/L Troponin I (0.000-0.034) ng/mL Total Protein (6.3-8.2) g/dL Albumin (3.5-5.0) g/dL Critical Care Time Critical Care Time: Yes Total Critical Care Time: 35 Disposition Clinical Impression: Pulmonary embolism Disposition: ADMITTED IP TO THIS HOSP Referrals: Pretty Guthrie MD [Primary Care Provider] - 1-2 days Time of Disposition: 20:18
[2021-11-17 15:17] LABS: Basophils # (A) 0.1 k/uL (0-0.2); Basophils % (A) 1 %; Eosinophils % (A) 0 %; Lymphocytes # (A) 2.3 k/uL (1.0-4.8); Lymphocytes % (A) 30 %; MCH 29.9 pg (25.0-35.0); MCHC 31.9 g/dL (31.0-37.0); MCV 93.7 fL (80.0-100.0); Mean Platelet Volume 7.6; Monocytes # (A) 0.6 k/uL (0-1.0); Monocytes % (A) 8 %; Neutrophils # (A) 4.3 k/uL (1.3-7.7); Neutrophils % (A) 56 %; Platelet Count 230 k/uL (150-450); RBC 6.42 m/uL (3.80-5.40); RDW 14.3 % (11.5-15.5); WBC 7.6 k/uL (3.8-10.6)
[2021-11-17 15:25] LABS: ALT 7 U/L (4-34); AST 21 U/L (14-36); African American GFR (CKD) >90 (>60 ml/min/1.73 sqM); Albumin 4.4 g/dL (3.5-5.0); Alkaline Phosphatase 108 U/L (38-126); Anion Gap 11 mmol/L; Blood Urea Nitrogen 13 mg/dL (7-17); Calcium 9.2 mg/dL (8.4-10.2); Carbon Dioxide 25 mmol/L (22-30); Chloride 102 mmol/L (98-107); Glucose 85 mg/dL (74-99); Magnesium 2.2 mg/dL (1.6-2.3); Non-African American GFR(CKD) >90 (>60 ml/min/1.73 sqM); Potassium 4.7 mmol/L (3.5-5.1); Sodium 138 mmol/L (137-145); Total Bilirubin 0.9 mg/dL (0.2-1.3); Total Protein 7.2 g/dL (6.3-8.2)
--- NOTE | 2021-11-17 15:25 | XR ---
EXAMINATION TYPE: XR chest 2V DATE OF EXAM: 11/17/2021 COMPARISON: Chest x-ray June 22, 2021 HISTORY: Chest pain. TECHNIQUE: Frontal and lateral views of the chest are obtained. FINDINGS: Slightly elevated left hemidiaphragm. There is no suspicious focal air space opacity, pleur al effusion, or pneumothorax seen. Mild underlying emphysematous changes are present on lateral view. The cardiac silhouette size is stable and within normal limits. Embolization coils in the left uppe r quadrant are redemonstrated The osseous structures are intact. Overlying bra strap now seen. IMPRESSION: Chronic changes without acute pulmonary process.
[2021-11-17 15:41] LABS: HCT 60.1 % (34.0-46.0); HGB 19.2 gm/dL (11.4-16.0)
[2021-11-17 16:20] LABS: INR 0.9 (<1.2)
[2021-11-17 16:51] LABS: Prothrombin Time 9.8 sec (9.0-12.0)
[2021-11-17] MEDS ORDERED: HEPARIN SODIUM 1,000 UN/ML (10ML VL) IV ONE (20:04)
--- NOTE | 2021-11-17 20:14 | CT ---
EXAMINATION TYPE: CT chest angio for PE DATE OF EXAM: 11/17/2021 COMPARISON: 06/30/2021 HISTORY: chest pain. Elevated D-dimer CT DLP: 912.1 mGycm Automated exposure control for dose reduction was used. CONTRAST: CT Chest for pulmonary embolism performed with with IV Contrast, patient injected with 82cc mL of Iso wolfgang 370. FINDINGS: LUNGS: The lungs are grossly clear. There is no focal consolidation or significant infiltrate. There is a 3 mm right upper lobe subpleural nodule. There is no pleural effusion or pneumothorax seen. The tracheobronchial tree is patent. MEDIASTINUM: There is satisfactory enhancement of the pulmonary artery and its branches. There are mu ltiple filling defects throughout the right upper, middle and lower lobe lobar, segmental subsegmenta l branches consistent with emboli. There is additional filling defect in the left lower lobe subsegme ntal branch. There are no greater than 1 cm hilar or mediastinal lymph nodes. No pericardial effus ion is seen. OTHER: No additional significant abnormality is seen. Coil embolization involving the splenic artery seen. IMPRESSION: Acute PE involving the right upper, middle and lower lobes with moderate clot burden. Additional smal l clot burden involving the left lower lobe subsegmental branches. No significant right heart strain or airspace opacities. Incidental tiny right upper lobe subpleural nodule, may represent prior infectious/inflammatory song e. Findings were reported to caring ED physician by me at time of dictation.
[2021-11-17] MEDS ORDERED: SODIUM CHLORIDE 0.9% 1,000 ML IV ONE (20:18)
[2021-11-17] MEDS: HEPARIN SOD,PORK IN 0.45% NACL 25,000 UNIT in 0.45% NACL 1 250ML.BAG IV SCH (20:41)
--- NOTE | 2021-11-17 21:19 | US ---
EXAMINATION TYPE: US venous doppler duplex LE DATE OF EXAM: 11/17/2021 8:25 PM COMPARISON: NONE CLINICAL HISTORY: Pulmonary embolism. PE SIDE PERFORMED: Bilateral TECHNIQUE: The lower extremity deep venous system is examined utilizing real time linear array sonog amilcar with graded compression, doppler sonography and color-flow sonography. VESSELS IMAGED: Common Femoral Vein Deep Femoral Vein Greater Saphenous Vein * Femoral Vein Popliteal Vein Small Saphenous Vein * Proximal Calf Veins (* superficial vessels) Right Leg: Thrombus seen from prox femoral vein to mid popliteal vein. Left Leg: No evidence for DVT IMPRESSION: Acute DVT of the right lower extremity from the proximal SFV to the mid popliteal vein. No evidence of left lower extremity DVT.
--- NOTE | 2021-11-18 00:22 | P.HPIM ---
History of Present Illness H&P Date: 11/17/21 The patient is a 61-year-old female with a PMH of polycythemia, COPD, hypothyroidism, history of CVA, who presents to the emergency room with complaints of chest pain. The patient reports that her symptoms started roughly a week ago with 3 days of left-sided sharp chest discomfort. The symptoms in itially subsided, but subsequently recurred this morning with sharp left-sided sciatica 10 constant 10 out of 10 constant chest discomfort nonradiating. She denied experiencing shortness of breath, nausea, vomiting, dizziness, diaphoresis. Patient reports a chronic nonproductive cough which is unchanged. She reports taking a trip to [place] 4 weeks ago where she was in a car for 13 hours. Denied lower extremity swelling or pain. Does report that her prior CVA was ischemic. Laboratory evaluation in the emergency room revealed a d-dimer of 10.13 with hemoglobin 19.2 (at baseline). Subsequent chest CTA revealed an acute PE involving the right upper, middle, and lower lobes with moderate clot burden with an additional small clot in the left lower lobe. No significant right heart strain was noted. Venous Doppler lower extremities revealed an acute DVT of the right lower extremity from the proximal SFV to the mid popliteal vein. EKG revealed sinus rhythm at 77 bpm with left axis deviation and poor R-wave progression. Review of systems: Pertinent positives and negatives as discussed in HPI, a complete review of systems was performed and all other systems are negative. Physical examination: General: non toxic, no distress, appears at stated age, obese Derm: no unusual rashes/lesions, warm Head: atraumatic, normocephalic, symmetric Eyes: EOMI, no lid lag, anicteric sclera, pupils equal round reactive to light ENT: Nose and ears atraumatic Neck: No cervical lymphadenopathy, trachea midline, supple Mouth: no lip lesion, mucus membranes moist Cardiovascular: S1S2 reg, no murmur, positive dorsalis pedis pulse bilateral, trace bilateral lower extremity pitting edema Lungs: CTA bilateral, no rhonchi, no rales, no accessory muscle use Abdominal: soft, nontender to palpation, no guarding Ext: muscle strength 5 out of 5 in all 4 extremities grossly, no gross muscle atrophy, no contractures, Neuro: CN II-XI grossly intact, no gross focal neuro deficits Psych: Alert, oriented, appropriate affect Assessment/plan Acute right lower extremities DVT and PE with moderate clot burden, suspected provoked -Continue with heparin infusion -Hematology consult in setting of severe polycythemia -Patient does not appear to have seen hematology in the past with no workup identified in the system -Patient not requiring supplemental oxygen at this time with no evidence of heart strain noted -Follow up echocardiogram Polycythemia -Above management -Check erythropoietin levels Chronic conditions: COPD, hypothyroidism, history of CVA -Continue with home meds DVT prophylaxis -Heparin infusion The patient is admitted with an anticipated greater than 2 midnight stay for gage luation of DVT and PE CODE STATUS: Full Code Discussed with: Patient Anticipated discharge date: Anticipated discharge place: Home Past Medical History Past Medical History: CVA/TIA, Thyroid Disorder Additional Past Medical History / Comment(s): OCCASIONAL LEG SWELLING crps in ll e, History of Any Multi-Drug Resistant Organisms: None Reported Past Surgical History: Section, Hysterectomy, Joint Replacement Additional Past Surgical History / Comment(s): MARY KNEE REPLACEMENTS, RT HIP REPLACEMENT, c-secx2 Additional Past Anesthesia/Blood Transfusion Reaction / Comment(s): "HARD TIME WAKING UP" Past Psychological History: Anxiety Smoking Status: Current every day smoker Past Alcohol Use History: Rare Past Drug Use History: None Reported - Past Family History Mother Family Medical History: Cancer Additional Family Medical History / Comment(s): LYMPHOMA Medications and Allergies Home Medications Medication Instructions Recorded Confirmed Type Albuterol Sulfate [Ventolin HFA] 2 puff INHALATION RT-Q4H PRN 05/03/16 11/17/21 History Levothyroxine Sodium [Synthroid] 100 mcg PO DAILY 05/03/16 11/17/21 History Gabapentin [Neurontin] 600 mg PO TID 08/29/18 11/17/21 History Cholecalciferol (Vitamin D3) 125 mcg PO [place] 09/30/20 11/17/21 History [Vitamin D3 (125 MCG = 50,000 IU)] ARIPiprazole [Abilify] 5 mg PO HS 11/17/21 11/17/21 History Liraglutide [Saxenda] 3 mg SQ DAILY 11/17/21 11/17/21 History Tiotropium [place] [Spiriva] 2 puff INHALATION RT-DAILY 11/17/21 11/17/21 History Venlafaxine HCl ER [Effexor Xr] 150 mg PO DAILY 11/17/21 11/17/21 History Allergies Allergy/AdvReac Type Severity Reaction Status Date / Time vancomycin AdvReac Red Man Verified 11/17/21 15:44 Syndrome Physical Exam Vitals: Vital Signs Temp Pulse Resp BP Pulse Ox 11/17/21 20:50 75 18 144/95 99 11/17/21 20:30 98 18 147/80 97 11/17/21 13:23 97.8 F 77 22 129/83 97 Intake and Output 11/17/21 11/17/21 11/18/21 14:59 22:59 06:59 Other: Weight 141.067 kg Results CBC & Chem 7: 11/17/21 14:34 11/17/21 14:34 Labs: Abnormal Lab Results - Last 24 Hours (Table) 11/17/21 11/17/21 Range/Units 14:34 15:53 RBC 6.42 H (3.80-5.40) m/uL Hgb 19.2 H* (11.4-16.0) gm/dL Hct 60.1 H* (34.0-46.0) % D-Dimer 10.13 H (<0.60) mg/L FEU
[2021-11-18] MEDS: LEVOTHYROXINE 100 MCG TAB PO SCH (06:13)
[2021-11-18] MEDS: IPRATROPIUM 0.5 MG/2.5 ML NEBU INHALATION SCH ×5 (07:22→21:12)
[2021-11-18] MEDS ORDERED: IPRATROPIUM 0.5 MG/2.5 ML NEBU INHALATION SCH (08:00)
[2021-11-18 08:08] LABS: Basophils # (A) 0.1 k/uL (0-0.2); Basophils % (A) 1 %; Eosinophils % (A) 0 %; HCT 54.4 % (34.0-46.0); HGB 17.1 gm/dL (11.4-16.0); Lymphocytes # (A) 2.1 k/uL (1.0-4.8); Lymphocytes % (A) 30 %; MCH 29.4 pg (25.0-35.0); MCHC 31.5 g/dL (31.0-37.0); MCV 93.5 fL (80.0-100.0); Mean Platelet Volume 8.1; Monocytes # (A) 0.8 k/uL (0-1.0); Monocytes % (A) 11 %; Neutrophils # (A) 3.9 k/uL (1.3-7.7); Neutrophils % (A) 54 %; Platelet Count 226 k/uL (150-450); RBC 5.81 m/uL (3.80-5.40); RDW 14.4 % (11.5-15.5); WBC 7.2 k/uL (3.8-10.6)
[2021-11-18] MEDS: GABAPENTIN 300 MG CAP PO SCH ×3 (08:22→20:51)
[2021-11-18] MEDS: VENLAFAXINE HCL ER 150 MG CAP PO SCH (08:22)
--- NOTE | 2021-11-18 09:44 | P.GSCN ---
History of Present Illness Consult date: 11/18/21 Reason for Consult: Pulmonary Embolism Requesting physician: Eric Tiwari History of present illness: This is 61-year-old pleasant female who presented to the emergency department yesterday afternoon up to 5 minutes. Some of the pain radiated to her neck and back. She also is having some shortness of breath. She had a CT angiogram of the chest that was concerning for pulmonary embolism. Vascular surgery was consulted for the above. The patient also had a venous duplex with evidence of thrombus seen from proximal femoral vein to mid popliteal vein. Patient states she has no previous history of DVT or pulmonary embolism. No recent surgeries, she does state that she recently went on a road trip to [place] and back by car in October. She denied any pain to her lower extremities. Denies any fam ru history of clotting disorder. She currently states she has no shortness of breath or chest pain. She is sitting up at the bedside having breakfast, does not have any oxygen on at this time. She does not seem to be short of breath or with any breathing difficulties. She does state that she has a history of CVA that affected her right eye approximately 5 years ago, she has obese, and has a history of thyroid disease. Patient is a daily smoker for many years. Patient was noted to have polycythemia. Hematology on consult. WBC is 7.6 hemoglobin 19.2 hematocrit 60 platelet count 230,000, patient had elevated d-dimer at 10.13, troponin negative at less than 0.012. The patient's oxygen saturation anywhere from 91-99%, she required 3 L of oxygen through the evening. Patient was started on a heparin drip. Again currently patient denies any shortness of breath, chest pain, abdominal pain, nausea or vomiting. She's been afebrile. She denies any pain in her lower extremities. Review of Systems A 14 point review systems was completed all pertinent positives and negatives as stated in the HPI. Past Medical History Past Medical History: CVA/TIA, Thyroid Disorder Additional Past Medical History / Comment(s): OCCASIONAL LEG SWELLING crps in ll e, History of Any Multi-Drug Resistant Organisms: None Reported Past Surgical History: Section, Hysterectomy, Joint Replacement Additional Past Surgical History / Comment(s): MRAY KNEE REPLACEMENTS, RT HIP REPLACEMENT, c-secx2 Additional Past Anesthesia/Blood Transfusion Reaction / Comm: "HARD TIME WAKING UP" Past Psychological History: Anxiety Smoking Status: Current every day smoker Past Alcohol Use History: Rare Past Drug Use History: None Reported - Past Family History Mother Family Medical History: Cancer Additional Family Medical History / Comment(s): LYMPHOMA Medications and Allergies Home Medications Medication Instructions Recorded Confirmed Type Albuterol Sulfate [Ventolin HFA] 2 puff INHALATION RT-Q4H PRN 05/03/16 11/17/21 History Levothyroxine Sodium [Synthroid] 100 mcg PO DAILY 05/03/16 11/17/21 History Gabapentin [Neurontin] 600 mg PO TID 08/29/18 11/17/21 History Cholecalciferol (Vitamin D3) 125 mcg PO [place] 09/30/20 11/17/21 History [Vitamin D3 (125 MCG = 50,000 IU)] ARIPiprazole [Abilify] 5 mg PO HS 11/17/21 11/17/21 History Liraglutide [Saxenda] 3 mg SQ DAILY 11/17/21 11/17/21 History Tiotropium [place] [Spiriva] 2 puff INHALATION RT-DAILY 11/17/21 11/17/21 History Venlafaxine HCl ER [Effexor Xr] 150 mg PO DAILY 11/17/21 11/17/21 History Allergies Allergy/AdvReac Type Severity Reaction Status Date / Time vancomycin AdvReac Red Man Verified 11/17/21 15:44 Syndrome Surgical - Exam Vital Signs Temp Pulse Resp BP Pulse Ox 97.8 F 77 22 129/83 97 11/17/21 13:23 11/17/21 13:23 11/17/21 13:23 11/17/21 13:23 11/17/21 13:23 General appearance: The patient is alert, oriented, appears in no acute distress. Obese. HET: Head is normocephalic and atraumatic. Pupils are equal and reactive. Neck: Supple without lymphadenopathy. Trachea midline. Heart: S1 S2. Regular rate and rhythm. Lungs: Clear to auscultation bilaterally. Abdomen: Soft, nontender, nondistended. Extremities: Normal skin color and turgor. Bilateral nonpitting lower extremity edema. Palpable bilateral dorsalis pedis pulses. Neurological: No focal deficits. Alert and oriented 3 Results - Labs 11/18/21 06:40 11/17/21 14:34 Abnormal Lab Results - Last 24 Hours (Table) 11/17/21 11/17/21 11/18/21 Range/Units 14:34 15:53 02:15 RBC 6.42 H (3.80-5.40) m/uL Hgb 19.2 H* (11.4-16.0) gm/dL Hct 60.1 H* (34.0-46.0) % APTT >200.0 H* (22.0-30.0) sec D-Dimer 10.13 H (<0.60) mg/L FEU 11/18/21 Range/Units 06:40 RBC 5.81 H (3.80-5.40) m/uL Hgb 17.1 H (11.4-16.0) gm/dL Hct 54.4 H (34.0-46.0) % APTT (22.0-30.0) sec D-Dimer (<0.60) mg/L [facility] Diabetes panel 11/17/21 Range/Units 14:34 Sodium 138 (137-145) mmol/L Potassium 4.7 (3.5-5.1) mmol/L Chloride 102 (98-107) mmol/L Carbon Dioxide 25 (22-30) mmol/L BUN 13 (7-17) mg/dL Creatinine 0.72 (0.52-1.04) mg/dL Glucose 85 (74-99) mg/dL Calcium 9.2 (8.4-10.2) mg/dL AST 21 (14-36) U/L ALT 7 (4-34) U/L Alkaline Phosphatase 108 (38-126) U/L Total Protein 7.2 (6.3-8.2) g/dL Albumin 4.4 (3.5-5.0) g/dL Calcium panel 11/17/21 Range/Units 14:34 Calcium 9.2 (8.4-10.2) mg/dL Albumin 4.4 (3.5-5.0) g/dL Pituitary panel 11/17/21 Range/Units 14:34 Sodium 138 (137-145) mmol/L Potassium 4.7 (3.5-5.1) mmol/L Chloride 102 (98-107) mmol/L Carbon Dioxide 25 (22-30) mmol/L BUN 13 (7-17) mg/dL Creatinine 0.72 (0.52-1.04) mg/dL Glucose 85 (74-99) mg/dL Calcium 9.2 (8.4-10.2) mg/dL Adrenal panel 11/17/21 Range/Units 14:34 Sodium 138 (137-145) mmol/L Potassium 4.7 (3.5-5.1) mmol/L Chloride 102 (98-107) mmol/L Carbon Dioxide 25 (22-30) mmol/L BUN 13 (7-17) mg/dL Creatinine 0.72 (0.52-1.04) mg/dL Glucose 85 (74-99) mg/dL Calcium 9.2 (8.4-10.2) mg/dL Total Bilirubin 0.9 (0.2-1.3) mg/dL AST 21 (14-36) U/L ALT 7 (4-34) U/L Alkaline Phosphatase 108 (38-126) U/L Total Protein 7.2 (6.3-8.2) g/dL Albumin 4.4 (3.5-5.0) g/dL - Imaging Comments: CT chest angiogram: Acute PE involving the right upper, middle and lower lobes with moderate clot burden. Additional small clot burden involving the left lower lobe subsegmental branches. No significant right heart strain or airspace [place]. Incidental tiny right upper lobe subpleural nodule, may represent prior infectious/inflammatory change. Lower extremity venous duplex: Left lower extremity negative for DVT. Acute DVT of the right lower extremity from the proximal FF V2 the mid popliteal vein. CT scan - chest: report reviewed Assessment and Plan Assessment: 1. Bilateral pulmonary embolism 2. Right lower extremity acute DVT 3. Polycythemia 4. Tobacco dependence 5. Obesity Plan: 1. Continue heparin drip for now 2. Stat echocardiogram ordered 3. Further recommendations forthcoming per echocardiogram whether EKOS procedure would be indicated 4. Otherwise anticoagulation recommendations deferred to hematology 5. Please apply compression stocking to right lower extremity 6. Encourage ambulation 7. Smoking cessation Thank you for this consultation, we will continue to follow. The impression and plan of care has been dictated as directed. Dr. Carlos I performed a history and examination of this patient, discussed the same with the dictator. I agree with the dictator's note ,documented as a scribe. Any additional findings or plans will be noted.
--- NOTE | 2021-11-18 11:30 | P.PN ---
Subjective Progress Note Date: 11/18/21 Patient was seen and examined. No acute events overnight. Patient reports no chest pain. No shortness of breath or palpitations. General: non toxic, no distress, appears at stated age, obese Derm: no unusual rashes/lesions, warm Head: atraumatic, normocephalic, symmetric Eyes: EOMI, no lid lag, anicteric sclera ENT: Nose and ears atraumatic Mouth: no lip lesion, mucus membranes moist Cardiovascular: S1S2 reg, no murmur, trace bilateral lower extremity pitting edema Lungs: End expiratory wheezing bilateral, no rhonchi, no rales, no accessory muscle use Ext: no gross muscle atrophy, no contractures, Neuro: no gross focal neuro deficits Psych: Alert, oriented, appropriate affect Assessment/plan Acute right lower extremities DVT and PE with moderate clot burden, suspected provoked -Continue with heparin infusion -Hematology consult in setting of severe polycythemia -Vascular surgery consulted -Echocardiogram obtained, read pending -Telemetry monitoring -Patient not requiring supplemental oxygen at this time with no evidence of heart strain noted Polycythemia -Above management -Check erythropoietin levels Chronic conditions: COPD, hypothyroidism, history of CVA -Continue with home meds DVT prophylaxis -Heparin infusion The patient is admitted with an anticipated greater than 2 midnight stay for evaluation of DVT and PE CODE STATUS: Full Code Objective - Vital Signs Vital signs: Vital Signs Temp 96.2 F L 11/18/21 07:46 Pulse 92 11/18/21 08:00 Resp 18 11/18/21 08:00 BP 114/59 11/18/21 07:46 Pulse Ox 92 L 11/18/21 07:46 FiO2 Intake & Output 11/17/21 11/18/21 11/18/21 18:59 06:59 18:59 Intake Total 151.377 200 Output Total 200 Balance 151.377 0 Weight 141.067 kg 141.067 kg Intake: Intake, IV Titration 151.377 Amount Heparin Sod,Pork in 0.45% 151.377 NaCl 25,000 unit In 0.45 % NaCl 1 250ml.bag @ 16.3 UNITS/KG/HR 22.994 mls/ hr IV .[id number] [facility] Rx#: [id number] Oral 200 Output: Urine 200 Other: Voiding Method Toilet Bedside Commode - Labs CBC & Chem 7: 11/18/21 06:40 09/15/22 14:34 Labs: Abnormal Lab Results - Last 24 Hours (Table) 11/17/21 11/17/21 11/18/21 Range/Units 14:34 15:53 02:15 RBC 6.42 H (3.80-5.40) m/uL Hgb 19.2 H* (11.4-16.0) gm/dL Hct 60.1 H* (34.0-46.0) % APTT >200.0 H* (22.0-30.0) sec D-Dimer 10.13 H (<0.60) mg/L FEU 11/18/21 11/18/21 Range/Units 06:40 10:20 RBC 5.81 H (3.80-5.40) m/uL Hgb 17.1 H (11.4-16.0) gm/dL Hct 54.4 H (34.0-46.0) % APTT 85.0 H (22.0-30.0) sec D-Dimer (<0.60) mg/L FEU
[2021-11-18] MEDS: HEPARIN SOD,PORK IN 0.45% NACL 25,000 UNIT in 0.45% NACL 1 250ML.BAG IV SCH ×2 (11:43→22:16)
--- NOTE | 2021-11-18 17:31 | P.CONS ---
History of Present Illness - Reason for Consult Consult date: 11/18/21 Secondary polycythemia - Chief Complaint Pulmonary embolism - History of Present Illness Ms. Ponce is a 61-year-old woman with a past medical history significant for secondary polycythemia secondary to smoking as well as a history of embolic CVA who presented on the evening of 11/17/2021 with progressive pleuritic chest pain. She initially noticed this chest pain about 4-5 days ago and started on the right side of the chest and radiated to the left side of the chest. When it started to radiate to the neck, she decided to present to the ED for additional management and monitoring. CTA on 11/17/2021 noted acute PE involving the right upper middle and lower lobes with moderate clot burden. Small clot burden was noted in the left lower lobe. Doppler of the lower extremities bilaterally noted acute DVT of the right lower extremity involving the proximal saphenofemoral vein with extension into the mid popliteal vein. She's had no evidence of documented tachycardia has been having oxygen saturations ranging from 91-99% on 3 L nasal cannula. Hemoglobin on initial presentation was 19.2 with hematocrit of 60.1%. We will also count and platelet count were both normal. D-dimer was elevated to 10.13. No troponin elevation was noted. She was started on heparin drip and admitted to internal medicine for additional management and monitoring. Currently, Ms. Ponce has had significant improvement in her pleuritic chest pain. She denies any shortness of breath currently. She notes that she traveled to [place] about 5 weeks ago and during her trip, contracted COVID-19. She did not require any antiviral interventions for treatment of COVID-19. She continues to smoke 2 packs of cigarettes daily. She denies any recent travel within the past week or use of hormone replacement therapy. She denies any known family history of VTE. Past Medical History Past Medical History: CVA/TIA, Thyroid Disorder Additional Past Medical History / Comment(s): OCCASIONAL LEG SWELLING crps in ll e, History of Any Multi-Drug Resistant Organisms: None Reported Past Surgical History: Section, Hysterectomy, Joint Replacement Additional Past Surgical History / Comment(s): MARY KNEE REPLACEMENTS, RT HIP REPLACEMENT, c-secx2 Additional Past Anesthesia/Blood Transfusion Reaction / Comm: "HARD TIME WAKING UP" Past Psychological History: Anxiety Smoking Status: Current every day smoker Past Alcohol Use History: Rare Past Drug Use History: None Reported - Past Family History Mother Family Medical History: Cancer Additional Family Medical History / Comment(s): LYMPHOMA Medications and Allergies Home Medications Medication Instructions Recorded Confirmed Type Albuterol Sulfate [Ventolin HFA] 2 puff INHALATION RT-Q4H PRN 05/03/16 11/17/21 History Levothyroxine Sodium [Synthroid] 100 mcg PO DAILY 05/03/16 11/17/21 History Gabapentin [Neurontin] 600 mg PO TID 08/29/18 11/17/21 History Cholecalciferol (Vitamin D3) 125 mcg PO [place] 09/30/20 11/17/21 History [Vitamin D3 (125 MCG = 50,000 IU)] ARIPiprazole [Abilify] 5 mg PO HS 11/17/21 11/17/21 History Liraglutide [Saxenda] 3 mg SQ DAILY 11/17/21 11/17/21 History Tiotropium [place] [Spiriva] 2 puff INHALATION RT-DAILY 11/17/21 11/17/21 History Venlafaxine HCl ER [Effexor Xr] 150 mg PO DAILY 11/17/21 11/17/21 History Allergies Allergy/AdvReac Type Severity Reaction Status Date / Time vancomycin AdvReac Red Man Verified 11/17/21 15:44 Syndrome Physical Exam Vitals: Vital Signs Temp Pulse Pulse Resp BP BP Pulse Ox 11/18/21 16:00 98.4 F 74 18 113/71 90 L 11/18/21 14:00 74 18 11/18/21 11:53 97.6 F 80 19 114/75 90 L 11/18/21 08:00 92 18 11/18/21 07:46 96.2 F L 92 18 114/59 92 L 11/18/21 07:20 78 11/18/21 07:10 77 99 11/18/21 04:00 98.2 F 74 20 111/75 93 L 11/18/21 01:30 73 18 125/68 92 L 11/17/21 23:00 98.0 F 77 18 141/83 91 L 11/17/21 20:50 75 18 144/95 99 11/17/21 20:30 98 18 147/80 97 Intake and Output 11/18/21 11/18/21 11/18/21 06:59 14:59 22:59 Intake Total 151.377 307.066 Output Total 350 200 Balance 151.377 -42.934 -200 Intake: Intake, IV Titration 151.377 107.066 Amount Heparin Sod,Pork in 0.45% 151.377 107.066 NaCl 25,000 unit In 0.45 % NaCl 1 250ml.bag @ 16.3 UNITS/KG/HR 22.994 mls/ hr IV .[id number] [facility] Rx#: [id number] Oral 200 Output: Urine 350 200 Other: Voiding Method Toilet Bedside Commode # Voids 1 Weight 141.067 kg - Constitutional General appearance: average body habitus, no acute distress - EENT Eyes: EOMI - Respiratory Respiratory: bilateral: CTA - Cardiovascular Rhythm: regular - Gastrointestinal General gastrointestinal: normal bowel sounds - Integumentary Integumentary: no rash - Neurologic Neurologic: CNII-XII intact - Psychiatric Psychiatric: appropriate affect Results CBC & Chem 7: 11/18/21 06:40 11/17/21 14:34 Labs: Abnormal Lab Results - Last 24 Hours (Table) 11/17/21 11/18/21 11/18/21 Range/Units 15:53 02:15 06:40 RBC 5.81 H (3.80-5.40) m/uL Hgb 17.1 H (11.4-16.0) gm/dL Hct 54.4 H (34.0-46.0) % APTT >200.0 H* (22.0-30.0) sec D-Dimer 10.13 H (<0.60) mg/L FEU 11/18/21 Range/Units 10:20 RBC (3.80-5.40) m/uL Hgb (11.4-16.0) gm/dL Hct (34.0-46.0) % APTT 85.0 H (22.0-30.0) sec D-Dimer (<0.60) mg/L FEU Assessment and Plan Assessment: Ms. Ponce is a 61-year-old female with a past medical history significant for secondary polycythemia due to cigarette smoking along with a history of embolic CVA presenting with pleuritic chest pain and found to have DVT with pulmonary embolism currently being treated on heparin drip. Plan: -She does not appear to have any clinical evidence of right heart strain at this time, but echocardiogram was performed to assess for this -1 clinically appropriate, heparin drip can be transitioned to oral apixiban for continued anticoagulation outpatient -Her DVT/PE could've been provoked due to recent COVID-19 infection along with smoking -In the setting of her secondary polycythemia and persistent cigarette smoking, however, she may be a candidate for more indefinite anticoagulation -She'll follow-up with her director digital communications Dr. Koch to discuss duration of anticoagulation
[2021-11-18] MEDS ORDERED: ARIPiprazole 5 MG TAB PO SCH (21:00)
[2021-11-19] MEDS: LEVOTHYROXINE 100 MCG TAB PO SCH (06:33)
[2021-11-19] MEDS: HEPARIN SOD,PORK IN 0.45% NACL 25,000 UNIT in 0.45% NACL 1 250ML.BAG IV SCH (06:34)
[2021-11-19] MEDS: IPRATROPIUM 0.5 MG/2.5 ML NEBU INHALATION SCH ×3 (08:05→15:26)
[2021-11-19] MEDS: VENLAFAXINE HCL ER 150 MG CAP PO SCH (09:50)
[2021-11-19] MEDS: GABAPENTIN 300 MG CAP PO SCH (09:50)
[2021-11-19 09:58] VITALS: RESP 18
[2021-11-19] MEDS ORDERED: APIXABAN 5 MG TAB PO SCH (10:00)
--- NOTE | 2021-11-19 10:07 | P.PN ---
Subjective Progress Note Date: 11/19/21 Pt s/e no complaints. feeling better. Some cough remains but no sig sob Objective - Vital Signs Vital signs: Vital Signs Temp 97.9 F 11/19/21 08:00 Pulse 80 11/19/21 08:17 Resp 18 11/19/21 08:00 BP 130/81 11/19/21 08:00 Pulse Ox 94 L 11/19/21 08:00 FiO2 Intake & Output 11/18/21 11/19/21 11/19/21 18:59 06:59 18:59 Intake Total 507.066 241.557 300 Output Total 550 100 0 Balance -42.934 141.557 300 Weight 138.5 kg Intake: Intake, IV Titration 107.066 241.557 Amount Heparin Sod,Pork in 0.45% 107.066 241.557 NaCl 25,000 unit In 0.45 % NaCl 1 250ml.bag @ 16.3 UNITS/KG/HR 22.994 mls/ hr IV .[id number] [facility] Rx#: [id number] Oral 400 300 Output: Urine 550 100 0 Stool 0 Urine/Stool Mix 0 Emesis 0 Oral Regurgitation 0 Other: Voiding Method Toilet Toilet Toilet Bedside Commode Bedside Commode Bedside Commode # Voids 1 2 0 # Bowel Movements 0 - Exam General appearance: The patient is alert, oriented, appears in no acute distress. Obese. HET: Head is normocephalic and atraumatic. Pupils are equal and reactive. Neck: Supple without lymphadenopathy. Trachea midline. Heart: S1 S2. Regular rate and rhythm. Lungs: Clear to auscultation bilaterally. Abdomen: Soft, nontender, nondistended. Extremities: Normal skin color and turgor. Bilateral nonpitting lower extremity edema. Palpable bilateral dorsalis pedis pulses. Neurological: No focal deficits. Alert and oriented - Labs CBC & Chem 7: 11/18/21 06:40 11/17/21 14:34 Labs: Abnormal Lab Results - Last 24 Hours (Table) 11/18/21 11/18/21 11/19/21 Range/Units 10:20 17:45 06:03 APTT 85.0 H 58.7 H 72.6 H (22.0-30.0) sec Assessment and Plan Assessment: 1. Bilateral pulmonary embolism 2. Right lower extremity acute DVT 3. Polycythemia 4. Tobacco dependence 5. Obesity Plan: reviewed images and labs. Likely no sig right heart strain given findings and clinical picture. Will transition to OAC. May be DC per vascular standpoint
--- NOTE | 2021-11-19 10:17 | P.DS ---
Providers Date of admission: 11/17/21 20:18 Expected date of discharge: 11/19/21 Attending physician: Lorene Amaro MD Consults: 11/17/21 20:18 Consult Physician Urgent Consulting Provider: Delma Carlos Consult Reason/Comments: Pulmonary embolus Do you want consulting provider notified?: Yes 11/18/21 00:20 Consult Physician Urgent Consulting Provider: Chaparro Avila Consult Reason/Comments: Acute PE in setting of polycythemia Do you want consulting provider notified?: Yes Primary care physician: [facility] Course: The patient is a 61-year-old female with a PMH of polycythemia, COPD, hypothyroidism, history of CVA, who presents to the emergency room with complaints of chest pain. The patient reports that her symptoms started roughly a week ago with 3 days of left-sided sharp chest discomfort. The symptoms initially subsided, but subsequently recurred this morning with sharp left-sided sciatica 10 constant 10 out of 10 constant chest discomfort nonradiating. She denied experiencing shortness of breath, nausea, vomiting, dizziness, diaphoresis. Patient reports a chronic nonproductive cough which is unchanged. She reports taking a trip to [place] 4 weeks ago where she was in a car for 13 hours. Denied lower extremity swelling or pain. Does report that her prior CVA was ischemic. Laboratory evaluation in the emergency room revealed a d-dimer of 10.13 with hemoglobin 19.2 (at baseline). Subsequent chest CTA revealed an acute PE involving the right upper, middle, and lower lobes with moderate clot burden with an additional small clot in the left lower lobe. No significant right heart strain was noted. Venous Doppler lower extremities revealed an acute DVT of the right lower extremity from the proximal SFV to the mid popliteal vein. EKG revealed sinus rhythm at 77 bpm with left axis deviation and poor R-wave progression. Patient was started on heparin drip. Hematology was consulted and recommended outpatient follow-up. Vascular surgery was consulted and recommended switching heparin to oral anticoagulant. Echocardiogram was done which is pending at the time of this note. Patient was switched from heparin drip to Elqiuis. Patient was seen and examined on 11/19/2021. She reported pleuritic-like chest pain with deep inspiration and cough. Otherwise, she has no complaints. General: non toxic, no distress, appears at stated age, obese Derm: no unusual rashes/lesions, warm Head: atraumatic, normocephalic, symmetric Eyes: EOMI, no lid lag, anicteric sclera ENT: Nose and ears atraumatic Mouth: no lip lesion, mucus membranes moist Cardiovascular: S1S2 reg, no murmur, trace bilateral lower extremity pitting edema Lungs: Decreased breath sounds bilateral, no rhonchi, no rales, no accessory muscle use Ext: no gross muscle atrophy, no contractures, Neuro: no gross focal neuro deficits Psych: Alert, oriented, appropriate affect Discharge diagnosis: Acute right lower extremities DVT and PE with moderate clot burden, suspected provoked Polycythemia Chronic conditions: COPD, hypothyroidism, history of CVA This complex discharge took about 35 minutes to complete. Pertinent Studies: Chest x-ray CTA chest Echocardiogram Patient Condition at Discharge: Stable Plan - Discharge Summary Discharge Rx Participant: No New Discharge Prescriptions: New Apixaban [Eliquis Starter Pack (for VTE)] 5 - 10 mg PO DIRECTED 30 Days #1 each Continue Levothyroxine Sodium [Synthroid] 100 mcg PO DAILY Albuterol Sulfate [Ventolin HFA] 2 puff INHALATION RT-Q4H PRN PRN Reason: Shortness Of Breath Gabapentin [Neurontin] 600 mg PO TID Cholecalciferol (Vitamin D3) [Vitamin D3 (125 MCG = 5,000 IU)] 125 mcg PO [place] Venlafaxine HCl ER [Effexor XR] 150 mg PO DAILY Tiotropium [place] [Spiriva [place]] 2 puff INHALATION RT-DAILY ARIPiprazole [Abilify] 5 mg PO HS Liraglutide [Saxenda] 3 mg SQ DAILY Discharge Medication List Albuterol Sulfate [Ventolin HFA] 2 puff INHALATION RT-Q4H PRN 05/03/16 [History] Levothyroxine Sodium [Synthroid] 100 mcg PO DAILY 05/03/16 [History] Gabapentin [Neurontin] 600 mg PO TID 08/29/18 [History] Cholecalciferol (Vitamin D3) [Vitamin D3 (125 MCG = 5,000 IU)] 125 mcg PO [place] 09/30/20 [History] ARIPiprazole [Abilify] 5 mg PO HS 11/17/21 [History] Liraglutide [Saxenda] 3 mg SQ DAILY 11/17/21 [History] Tiotropium [place] [Spiriva [place]] 2 puff INHALATION RT-DAILY 11/17/21 [History] Venlafaxine HCl ER [Effexor XR] 150 mg PO DAILY 11/17/21 [History] Apixaban [Eliquis Starter Pack (for VTE)] 5 - 10 mg PO DIRECTED 30 Days #1 each 11/19/21 [Rx] Follow up Appointment(s)/Referral(s): Pretty Guthrie MD [Primary Care Provider] - 1-2 days Angel Koch MD [STAFF PHYSICIAN] - 1 Week Activity/Diet/Wound Care/Special Instructions: Diet: Regular Follow-up with your PCP within 1-2 days of discharge. Follow-up with hematology within 1 week of discharge. Take all medications as advised. You'll need to take Eliquis for at least 3-6 months. Discharge Disposition: HOME SELF-CARE
[2021-11-19 15:19] VITALS: BP 130/80; PULSE 86; TEMP 98.3
--- NOTE | 2021-11-25 14:27 | CA ---
Transthoracic Echo Report Name: Iva Ponce Age: 61 Gender: F : 1960 Exam Date: 11/18/2021 08:46 Exam Location: [facility] Ht (in): 72 Wt (lb): 311 Ordering Physician: Eric Tiwari MD Attending/Referring Phys: Letter Carrier Yamilet Dwyer, KATEY Procedure CPT: Indications: Pulmonary Embolism Cardiac Hx: Technical Quality: Good Contrast 1: Total Dose (mL): Contrast 2: Total Dose (mL): MEASUREMENTS (Male / Female) Normal Values 2D ECHO LV Diastolic Diameter PLAX 5.6 cm 4.2 - 5.9 / 3.9 - 5.3 cm LV Systolic Diameter PLAX 4.5 cm IVS Diastolic Thickness 1.3 cm 0.6 - 1.0 / 0.6 - 0.9 cm LVPW Diastolic Thickness 1.4 cm 0.6 - 1.0 / 0.6 - 0.9 cm LV Relative Wall Thickness 0.5 LA Volume 79.3 cm??? 18 - 58 / 22 - 52 cm??? DOPPLER MV Area PHT 2.2 cm??? Mitral E Point Velocity 49.1 cm/s Mitral A Point Velocity 89.4 cm/s Mitral E to A Ratio 0.5 MV Deceleration Time 344.5 ms TR Peak Velocity 312.6 cm/s TR Peak Gradient 39.1 mmHg Right Ventricular Systolic Press 44.1 mmHg FINDINGS Left Ventricle Left ventricular ejection fraction is estimated at 50-55%. Moderately increased left ventricular wall thickness. Right Ventricle Normal right ventricular size and function. Right ventricular systolic pressure within normal limits. Right Atrium Normal right atrial size. Left Atrium Severely increased left atrial volume. Mildly increased left atrial area. Mitral Valve Structurally normal mitral valve. Mild mitral regurgitation. Aortic Valve Trileaflet aortic valve. Aortic valve sclerosis. Tricuspid Valve Structurally normal tricuspid valve. Pulmonic Valve Pulmonic valve not well visualized. Pericardium Normal pericardium. Aorta CONCLUSIONS Normal LV systolic function Normal RV size and likely normal RV systolic function Absence of moderate TR or severe TR Previewed by: Dr. Edi eRddy MD (Electronically Signed) Final Date: 18 November 2021 12:05
== END 2021-11-19 15:35 | disposition home or self-care (01) | DRG 176 ==
LOC: EC 13:06 → 3SCARD 20:18
PROVIDERS: ADMIT Internal Medicine; ATTEND Internal Medicine
DX: I26.99 Other pulmonary embolism without acute cor pulmonale (principal); I82.411 Acute embolism and thrombosis of right femoral vein; I82.431 Acute embolism and thrombosis of right popliteal vein; J44.9 Chronic obstructive pulmonary disease, unspecified; U09.9 Post COVID-19 condition, unspecified; D75.1 Secondary polycythemia; E03.9 Hypothyroidism, unspecified; M54.32 Sciatica, left side; F41.9 Anxiety disorder, unspecified; E66.9 Obesity, unspecified; Z68.38 Body mass index [BMI] 38.0-38.9, adult; F17.210 Nicotine dependence, cigarettes, uncomplicated; Z71.6 Tobacco abuse counseling; Z79.890 Hormone replacement therapy; Z79.899 Other long term (current) drug therapy; Z86.73 Personal history of transient ischemic attack (TIA), and cerebral infarction without residual deficits; Z96.653 Presence of artificial knee joint, bilateral; Z96.641 Presence of right artificial hip joint; Z88.1 Allergy status to other antibiotic agents
CPT/HCPCS: 36415; 71046; 71275; 80053; 82668; 83735; 84484; 85025; 85379; 85610; 85730; 93005; 93306; 93970; 94640; 94760; 96365; 96366; 99291

== ENCOUNTER 2022-08-06 14:28 | Observation (INO) | payer BC, MEDICARE ==
[2022-08-06] MEDS ORDERED: ASPIRIN 81 MG PO STA (14:39)
[2022-08-06] MEDS ORDERED: NITROGLYCERIN SL TABS 0.4 MG TAB SUBLINGUAL STA (14:39)
--- NOTE | 2022-08-06 14:47 | ED ---
Chest Pain HPI - General Chief Complaint: Chest Pain Stated Complaint: Chest Pain Time Seen by Provider: 08/06/22 14:33 Source: patient, RN notes reviewed Mode of arrival: ambulatory Limitations: no limitations - History of Present Illness Initial Comments: 62-year-old female history of heart disease she is a smoker and has had a history of a CVA in the past she states she had a history of a colonoscopy with a rufus spleen she has had PE in the past she is on Eliquis who states he started having retrosternal left-sided chest pain with radiation to her left neck about 30-60 minutes ago. 05/12 severity MD Complaint: chest pain - Related Data Home Medications Medication Instructions Recorded Confirmed Albuterol Sulfate [Ventolin HFA] 2 puff INHALATION RT-Q4H PRN 05/03/16 08/06/22 Levothyroxine Sodium [Synthroid] 100 mcg PO DAILY 05/03/16 08/06/22 Gabapentin [Neurontin] 600 mg PO TID 08/29/18 08/06/22 ARIPiprazole [Abilify] 5 mg PO HS 11/17/21 08/06/22 Liraglutide [Saxenda] 3 mg SQ DAILY 11/17/21 08/06/22 Venlafaxine HCl ER [Effexor XR] 150 mg PO DAILY 11/17/21 08/06/22 Apixaban [Eliquis] 2.5 mg PO BID 08/06/22 08/06/22 Ergocalciferol (Vitamin D2) 1,250 mcg PO [place] 08/06/22 08/06/22 [Drisdol (50,000 Iu)] Spiriva Respimat 1.25mcg/Actua 2 puff INHALATION RT-DAILY 08/06/22 08/06/22 Allergies Allergy/AdvReac Type Severity Reaction Status Date / Time vancomycin AdvReac Red Man Verified 08/06/22 17:44 Syndrome Review of Systems ROS Statement: Those systems with pertinent positive or pertinent negative responses have been documented in the HPI. ROS Other: All systems not noted in ROS Statement are negative. EKG Findings - EKG Results: EKG: interpreted by ERMD (EKG interpreted by mo sinus rhythm a 69 CT interval 185 QRS duration 148 QT since QTC 422/441 left exodeviation interventricular conduction delay this is compared to an EKG dated 11/17/21 showing similar configuration) Past Medical History Past Medical History: CVA/TIA, Thyroid Disorder Additional Past Medical History / Comment(s): OCCASIONAL LEG SWELLING crps in ll e, History of Any Multi-Drug Resistant Organisms: None Reported Past Surgical History: Section, Hysterectomy, Joint Replacement Additional Past Surgical History / Comment(s): MARY KNEE REPLACEMENTS, RT HIP REPLACEMENT, c-secx2 Additional Past Anesthesia/Blood Transfusion Reaction / Comment(s): "HARD TIME WAKING UP" Past Psychological History: Anxiety Smoking Status: Current every day smoker Past Alcohol Use History: Rare Past Drug Use History: None Reported - Past Family History Mother Family Medical History: Cancer Additional Family Medical History / Comment(s): LYMPHOMA General Exam - General Exam Comments Initial Comments: Is a well-developed well-nourished awake alert oriented 4 female Limitations: no limitations General appearance: alert, anxious Head exam: Present: atraumatic, normocephalic, normal inspection Eye exam: Present: normal appearance, PERRL, EOMI. Absent: scleral icterus, conjunctival injection, periorbital swelling ENT exam: Present: normal exam, mucous membranes moist Neck exam: Present: normal inspection, full ROM, other. Absent: tenderness, meningismus, lymphadenopathy Respiratory exam: Present: normal lung sounds bilaterally, chest wall tenderness (No stridor JVD or bruits some tenderness palpation of left costal sternal margin this does seem to reproduce the pain). Absent: respiratory distress, wheezes, rales, rhonchi, stridor Cardiovascular Exam: Present: regular rate, normal rhythm, normal heart sounds. Absent: systolic murmur, diastolic murmur, rubs, gallop, clicks GI/Abdominal exam: Present: soft, normal bowel sounds. Absent: distended, tenderness, guarding, rebound, rigid Extremities exam: Present: normal inspection, full ROM, normal capillary refill. Absent: tenderness, pedal edema, joint swelling, calf tenderness Back exam: Present: normal inspection Neurological exam: Present: alert, oriented X3, CN II-XII intact Psychiatric exam: Present: normal affect, normal mood Skin exam: Present: warm, dry, intact, normal color. Absent: rash Course Vital Signs 08/06/22 08/06/22 08/06/22 14:30 15:24 17:30 Temperature 97.4 F L Pulse Rate 79 66 75 Respiratory 18 18 18 Rate Blood Pressure 120/74 137/91 131/75 O2 Sat by Pulse 96 96 96 Oximetry Chest Pain MDM - MDM Imaging interpreted by me no acute findings. Patient did get improvement in her pain after aspirin nitroglycerin. EKG showed no acute findings the initial troponin negative however the history is consistent with ACS, unstable angina patient will be admitted with cardiology consultation I did discuss case with Dr. Nash.Was pt. sent in by a medical professional or institution (, [facility], [employer]OR, urgent care, hospital, or residential...) When possible be specific @ -No Did you speak to anyone other than the patient for history (EMS, parent, family, police, friend...)? What history was obtained from this source @ -Family Did you review nursing and triage notes (agree or disagree)? Why? @ -I reviewed and agree with nursing and triage notes Were old charts reviewed (outside hosp., previous admission, EMS record, old EKG, old radiological studies, urgent care reports/EKG's, residential records)? Report findings @ -11/17/21 old charts were reviewed Differential Diagnosis (chest pain, altered mental status, abdominal pain women, abdominal pain men, vaginal bleeding, weakness, fever, dyspnea, syncope, headache, dizziness, GI bleed, back pain, seizure, CVA, palpatations, mental health, musculoskeletal)? @ -Chest pain EKG interpreted by me (3pts min.). @ -As above X-rays interpreted by me (1pt min.). @ -As above CT interpreted by me (1pt min.). @ -None done U/S interpreted by me (1pt. min.). @ -None done What testing was considered but not performed or refused? (CT, X-rays, U/S, labs)? Why? @ -None What meds were considered but not given or refused? Why? @ -None Did you discuss the management of the patient with other professionals (professionals i.e. [facility]agen, [employer]PERVISOR, lab, RT, psych nurse, social work supervisor, animal rescuer, teacher, building drafting officer, case mgr)? Give summary @ -Dr Nash Was smoking cessation discussed for >3mins.? @ -No Was critical care preformed (if so, how long)? @ -31 Were there social determinants of health that impacted care today? How? (Home lessness, low income, unemployed, alcoholism, drug addiction, transportation, low edu. Level, literacy, decrease access to med. care, skilled nursing, rehab)? @ -No Was there de-escalation of care discussed even if they declined (Discuss DNR or withdrawal of care, Hospice)? DNR status @ -No What co-morbidities impacted this encounter? (DM, HTN, Smoking, COPD, CAD, Cancer, CVA, ARF, Chemo, Hep., AIDS, mental health diagnosis, sleep apnea, morbid obesity)? @ -PE, CVA Was patient admitted / discharged? Hospital course, mention meds given and route, prescriptions, significant lab abnormalities, going to OR and other pertinent info. @ -Patient was admitted with consultation to cardiology Undiagnosed new problem with uncertain prognosis? @ -Chest pain Drug Therapy requiring intensive monitoring for toxicity (Heparin, Nitro, Insulin, Cardizem)? @ -No Were any procedures done? @ -No Diagnosis/symptom? @ -Chest pain, unstable angina, history of PE Acute, or Chronic, or Acute on Chronic? @ -Acute Uncomplicated (without systemic symptoms) or Complicated (systemic symptoms)? @ -Complicated Side effects of treatment? @ -No Exacerbation, Progression, or Severe Exacerbation? @ -No Poses a threat to life or bodily function? How? (Chest pain, [place], [place], pneumonia, PE, COPD, DKA, ARF, appy, cholecystitis, CVA, Diverticulitis, Homicidal, Suicidal, threat to staff... and all critical care pts) @ -Chest pain Critical Care Time Critical Care Time: Yes Total Critical Care Time: 31 Disposition Clinical Impression: Unstable angina pectoris, Chest pain Disposition: ADMITTED IP TO THIS [facility] Condition: Stable Referrals: Pretty Guthrie MD [Primary Care Provider] - 1-2 days Decision Date: 08/06/22 Decision Time: 18:17
[2022-08-06 15:10] LABS: Basophils % (A) 0 %; Eosinophils % (A) 0 %; HGB 18.9 gm/dL (11.4-16.0); Lymphocytes % (A) 25 %; MCH 30.6 pg (25.0-35.0); MCHC 32.3 g/dL (31.0-37.0); MCV 94.8 fL (80.0-100.0); Mean Platelet Volume 7.7; Monocytes # (A) 0.7 k/uL (0-1.0); Monocytes % (A) 9 %; Neutrophils # (A) 5.2 k/uL (1.3-7.7); Neutrophils % (A) 63 %; Platelet Count 241 k/uL (150-450); RBC 6.19 m/uL (3.80-5.40); RDW 13.8 % (11.5-15.5); WBC 8.2 k/uL (3.8-10.6)
--- NOTE | 2022-08-06 15:11 | XR ---
EXAMINATION TYPE: XR chest 2V DATE OF EXAM: 08/06/2022 COMPARISON: 11/17/2021 HISTORY: Shortness of breath TECHNIQUE: Frontal and lateral views of the chest are obtained. FINDINGS: Scattered senescent parenchymal changes noted. Hyperinflation compatible with COPD. No evidence for infiltrate. No evidence for atelectasis. Heart size is stable. Mediastinal structures are stable and grossly unremarkable. No evidence for hilar prominence. Degenerative changes dorsal spine. IMPRESSION: 1. No evidence for acute pulmonary disease.
[2022-08-06 15:39] LABS: HCT 58.6 % (34.0-46.0)
[2022-08-06 16:07] LABS: ALT 11 U/L (4-34); AST 23 U/L (14-36); African American GFR (CKD) >90 (>60 ml/min/1.73 sqM); Albumin 3.9 g/dL (3.5-5.0); Alkaline Phosphatase 90 U/L (38-126); Anion Gap 9 mmol/L; Blood Urea Nitrogen 16 mg/dL (7-17); Calcium 9.2 mg/dL (8.4-10.2); Carbon Dioxide 27 mmol/L (22-30); Chloride 102 mmol/L (98-107); Glucose 81 mg/dL (74-99); Lipase 111 U/L (23-300); Magnesium 2.1 mg/dL (1.6-2.3); Non-African American GFR(CKD) >90 (>60 ml/min/1.73 sqM); Potassium 4.5 mmol/L (3.5-5.1); Sodium 138 mmol/L (137-145); Total Bilirubin 0.9 mg/dL (0.2-1.3); Total Protein 6.9 g/dL (6.3-8.2)
[2022-08-06 17:12] LABS: INR 0.9 (<1.2); Partial Thromboplastin Time 18.1 sec (22.0-30.0); Prothrombin Time 9.7 sec (9.0-12.0)
[2022-08-06] MEDS ORDERED: NITROGLYCERIN SL TABS 0.4 MG TAB SUBLINGUAL PRN (18:18)
[2022-08-06] MEDS ORDERED: ALBUTEROL NEBULIZED 2.5 MG/3 ML INHALATION PRN (18:19)
[2022-08-06] MEDS ORDERED: ARIPiprazole 5 MG TAB PO SCH (21:00)
[2022-08-06] MEDS: APIXABAN 2.5 MG TABLET PO SCH (22:05)
[2022-08-06] MEDS: GABAPENTIN 300 MG CAP PO SCH (22:05)
[2022-08-07] MEDS: NITROGLYCERIN OINT 1 INCH/GM PACKET TOPICAL SCH ×2 (00:53→06:23)
--- NOTE | 2022-08-07 02:09 | P.HPIM ---
History of Present Illness H&P Date: 08/06/22 The patient is a 62-year-old female with a PMH of DVT and PE (on Eliquis), COPD, polycythemia, history of CVA, hypothyroidism who presents to the emergency room with complaints of chest pain. The patient reports that she was at her usual state of health until around 12:30 PM earlier today when she suddenly developed a mild left-sided aching and sharp discomfort. She was unable to quantify the pain but statess that the pain was radiating into her left shoulder. The pain resolved spontaneously after just a few minutes, although recurred 3-4 times throughout the day. The patient reports that the pain did improve after receiving nitroglycerin and aspirin in the emergency room. She denied ex periencing shortness of breath, nausea, diaphoresis, or dizziness. Also denied lower extremity swelling or pain. The patient states that the pain had only recurred once after her arrival at the emergency room and that at time of interview she felt that her baseline. CXR in the emergency room was unremarkable. EKG had revealed sinus rhythm with left axis deviation and intraventricular conduction delay a 69 bpm as reviewed by me. Laboratory evaluation revealed hemoglobin of 18.9, sodium 138, potassium 4.5, BUN 16, creatinine 0.65, troponin 0.012. ED documentation reviewed. Review of systems: Pertinent positives and negatives as discussed in HPI, a complete review of systems was performed and all other systems are negative. Physical examination: Vital signs reviewed General: non toxic, no distress, appears at stated age, obese Derm: no unusual rashes/lesions, warm Head: atraumatic, normocephalic, symmetric Eyes: EOMI, no lid lag, anicteric sclera, pupils equal round reactive to light ENT: Nose and ears atraumatic Neck: No cervical lymphadenopathy, trachea midline, supple Mouth: no lip lesion, mucus membranes moist Cardiovascular: S1S2 reg, no murmur, positive dorsalis pedis pulse bilateral, no edema Lungs: CTA bilateral, no rhonchi, no rales, no accessory muscle use Abdominal: soft, nontender to palpation, no guarding Ext: muscle strength 5 out of 5 in all 4 extremities grossly, no gross muscle atrophy, no contractures, Neuro: CN II-XI grossly intact, no gross focal neuro deficits Psych: Alert, oriented, appropriate affect Assessment: Atypical chest pain Chronic conditions: History of PE and DVT, COPD, polycythemia, history of CVA, hypothyroidism Imaging: CXR in the emergency room was unremarkable. EKG had revealed sinus rhythm with left axis deviation and intraventricular conduction delay a 69 bpm as reviewed by me. Data Review: Laboratory evaluation revealed hemoglobin of 18.9, sodium 138, potassium 4.5, BUN 16, creatinine 0.65, troponin 0.012. ED documentation reviewed. Plan: Cardiology consulted Trend troponin Cardiac monitoring Continue with aspirin and statin Continue with remaining home medications DVT prophylaxis: Eliquis The patient is admitted with an anticipated less than 2 midnight stay for evaluation of chest pain CODE STATUS: Full Code Discussed with: Patient Anticipated discharge place: Home Past Medical History Past Medical History: CVA/TIA, Thyroid Disorder Additional Past Medical History / Comment(s): OCCASIONAL LEG SWELLING crps in ll e. Pt states she had a blood clot in her right leg and in lung in oct 2021 and started eliquis History of Any Multi-Drug Resistant Organisms: None Reported Past Surgical History: Section, Hysterectomy, Joint Replacement Additional Past Surgical History / Comment(s): MARY KNEE REPLACEMENTS, RT HIP REPLACEMENT, c-secx2 Additional Past Anesthesia/Blood Transfusion Reaction / Comment(s): "HARD TIME WAKING UP" Past Psychological History: Anxiety Smoking Status: Current every day smoker Past Alcohol Use History: Rare Additional Past Alcohol Use History / Comment(s): STARTED SMOKING AGE 15, STATES SMOKES >1PPD Past Drug Use History: None Reported - Past Family History Mother Family Medical History: Cancer Additional Family Medical History / Comment(s): LYMPHOMA Medications and Allergies Home Medications Medication Instructions Recorded Confirmed Type Albuterol Sulfate [Ventolin HFA] 2 puff INHALATION RT-Q4H PRN 05/03/16 08/06/22 History Levothyroxine Sodium [Synthroid] 100 mcg PO DAILY 05/03/16 08/06/22 History Gabapentin [Neurontin] 600 mg PO TID 08/29/18 08/06/22 History ARIPiprazole [Abilify] 5 mg PO HS 11/17/21 08/06/22 History Liraglutide [Saxenda] 3 mg SQ DAILY 11/17/21 08/06/22 History Venlafaxine HCl ER [Effexor XR] 150 mg PO DAILY 11/17/21 08/06/22 History Apixaban [Eliquis] 2.5 mg PO BID 08/06/22 08/06/22 History Ergocalciferol (Vitamin D2) 1,250 mcg PO [place] 08/06/22 08/06/22 History [Drisdol (50,000 Iu)] Spiriva Respimat 1.25mcg/Actua 2 puff INHALATION RT-DAILY 08/06/22 08/06/22 History Allergies Allergy/AdvReac Type Severity Reaction Status Date / Time vancomycin AdvReac Red Man Verified 08/06/22 17:44 Syndrome Physical Exam Vitals: Vital Signs Temp Pulse Pulse Resp BP BP Pulse Ox 08/07/22 00:58 98.0 F 71 16 120/71 92 L 08/06/22 22:37 69 08/06/22 22:33 67 08/06/22 21:51 97.7 F 67 17 126/79 94 L 08/06/22 17:30 75 18 131/75 96 08/06/22 15:24 66 18 137/91 96 08/06/22 14:30 97.4 F L 79 18 120/74 96 Intake and Output 08/06/22 08/06/22 08/07/22 14:59 22:59 06:59 Other: # Voids 1 Weight 129.274 kg 129.274 kg Results CBC & Chem 7: 08/06/22 14:59 08/06/22 15:32 Labs: Abnormal Lab Results - Last 24 Hours (Table) 08/06/22 08/06/22 Range/Units 14:59 14:59 RBC 6.19 H (3.80-5.40) m/uL Hgb 18.9 H (11.4-16.0) gm/dL Hct 58.6 H* (34.0-46.0) % APTT 18.1 L (22.0-30.0) sec Thrombosis Risk Factor Assmnt - Choose All That Apply Any of the Below Risk Factors Present?: Yes Each Factor Represents 1 point: Obesity (BMI >25), Swollen legs (current) Other Risk Factors: Yes Each Risk Factor Represents 2 Points: Age 61-74 years Each Risk Factor Represents 3 Points: History of DVT/PE Other congenital or acquired thrombophilia - If yes, enter type in comment: No Thrombosis Risk Factor Assessment Total Risk Factor Score: 7 Thrombosis Risk Factor Assessment Level: High Risk
[2022-08-07] MEDS ORDERED: LEVOTHYROXINE 100 MCG TAB PO SCH (06:30)
[2022-08-07] MEDS: IPRATROPIUM 0.5 MG/2.5 ML NEBU INHALATION SCH ×3 (07:44→15:13)
[2022-08-07] MEDS ORDERED: ASPIRIN 325 MG TAB PO SCH (09:00)
[2022-08-07] MEDS ORDERED: VENLAFAXINE HCL ER 150 MG CAP PO SCH (09:00)
--- NOTE | 2022-08-07 09:32 | P.CRDCN ---
History of Present Illness History of present illness: HISTORY OF PRESENT ILLNESS: This is a 62-year-old female with a past medical history significant for DVT/PE and hypothyroidism. 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 We have been asked to see the patient in consultation for chest pain. Patient examined at the bedside. Patient states she began having chest pain yesterday. She states she was cutting up an onion when this started. The pain started in the middle of her chest and radiated to the left side of her chest. She reports feeling nauseated but denied any vomiting. She also reports having dizziness. She states that she has had this pain a few times since coming to the hospital. She denies a history of diabetes, hypertension, or hyperlipidemia. She denies any previous history of coronary artery disease. She reports that she has complex regional pain syndrome of her left foot. The patient also reports she is a daily cigarette smoker of at least one pack per day. * EKG reveals sinus mechanism with no signs of acute ischemia * Chest xray negative for acute process * Laboratory data: WBC 8.2. Hemoglobin 18.9. Platelet count 241. Sodium 138. Potassium 4.5. BUN 16. Creatinine 0.65. Magnesium 2.1. Troponin negative 3. ProBNP 77. * Current home cardiac medications include Eliquis 2.5mg BID REVIEW OF SYSTEMS: At the time of my exam: CONSTITUTIONAL: Denies fever or chills. HEENT: Denies blurred vision, vision changes, or eye pain. Denies hemoptysis CARDIOVASCULAR: Denies chest pain. Denies orthopnea. Denies PND. Denies palpitations RESPIRATORY: Denies shortness of breath. GASTROINTESTINAL: Denies abdominal pain. Denies nausea or vomiting. HEMATOLOGIC: Denies bleeding disorders. GENITOURINARY: Denies any blood in urine. SKIN: Denies pruitis. Denies rash. PHYSICAL EXAM: VITAL SIGNS: Reviewed. GENERAL: Well-developed in no acute distress. HEENT: Head is normocephalic. Pupils are equal, round. Sclerae anicteric. Mucous membranes of the mouth are moist. Neck supple. No JVD or thyromegaly LUNGS: Respirations even and unlabored. Lungs essentially clear to auscultation bilaterally. HEART: Regular rate and rhythm. S1 and S2 heard. Distant heart sounds. ABDOMEN: Soft. Nondistended. Nontender. EXTREMITIES: Normal range of motion. No clubbing or cyanosis. Peripheral pulses intact. No lower extremity edema NEUROLOGIC: Awake and alert. Oriented x 3. ASSESSMENT: Chest pain, troponins negative 3 History of DVT/PE Hypothyroidism Complex regional pain syndrome of left foot Nicotine dependence PLAN: An acute coronary event has been ruled out Obtain 2-D echo to assess cardiac structure and function Discontinue aspirin Continue oral anticoagulation for history of DVT/PE Smoking cessation recommended Patient will undergo stress echocardiogram today If negative, she may be discharged home from a cardiac standpoint Nurse practitioner note has been reviewed by physician. Signing provider agrees with the documented findings, assessment, and plan of care. Past Medical History Past Medical History: CVA/TIA, Thyroid Disorder Additional Past Medical History / Comment(s): OCCASIONAL LEG SWELLING crps in ll e. Pt states she had a blood clot in her right leg and in lung in oct 2021 and started eliquis History of Any Multi-Drug Resistant Organisms: None Reported Past Surgical History: Section, Hysterectomy, Joint Replacement Additional Past Surgical History / Comment(s): MAYR KNEE REPLACEMENTS, RT HIP REPLACEMENT, c-secx2 Additional Past Anesthesia/Blood Transfusion Reaction / Comment(s): "HARD TIME WAKING UP" Past Psychological History: Anxiety Smoking Status: Current every day smoker Past Alcohol Use History: Rare Additional Past Alcohol Use History / Comment(s): STARTED SMOKING AGE 15, STATES SMOKES >1PPD Past Drug Use History: None Reported - Past Family History Mother Family Medical History: Cancer Additional Family Medical History / Comment(s): LYMPHOMA Medications and Allergies Home Medications Medication Instructions Recorded Confirmed Type Albuterol Sulfate [Ventolin HFA] 2 puff INHALATION RT-Q4H PRN 05/03/16 08/06/22 History Levothyroxine Sodium [Synthroid] 100 mcg PO DAILY 05/03/16 08/06/22 History Gabapentin [Neurontin] 600 mg PO TID 08/29/18 08/06/22 History ARIPiprazole [Abilify] 5 mg PO HS 11/17/21 08/06/22 History Liraglutide [Saxenda] 3 mg SQ DAILY 11/17/21 08/06/22 History Venlafaxine HCl ER [Effexor XR] 150 mg PO DAILY 11/17/21 08/06/22 History Apixaban [Eliquis] 2.5 mg PO BID 08/06/22 08/06/22 History Ergocalciferol (Vitamin D2) 1,250 mcg PO [place] 08/06/22 08/06/22 History [Drisdol (50,000 Iu)] Spiriva Respimat 1.25mcg/Actua 2 puff INHALATION RT-DAILY 08/06/22 08/06/22 History Allergies Allergy/AdvReac Type Severity Reaction Status Date / Time vancomycin AdvReac Red Man Verified 08/06/22 17:44 Syndrome Physical Exam Vitals: Vital Signs Temp Pulse Pulse Resp BP BP Pulse Ox 08/07/22 07:55 70 08/07/22 07:45 72 92 L 08/07/22 00:58 98.0 F 71 16 120/71 92 L 08/06/22 23:55 16 08/06/22 22:37 69 08/06/22 22:33 67 08/06/22 21:51 97.7 F 67 17 126/79 94 L 08/06/22 17:30 75 18 131/75 96 08/06/22 15:24 66 18 137/91 96 08/06/22 14:30 97.4 F L 79 18 120/74 96 Intake and Output 08/06/22 08/07/22 08/07/22 22:59 06:59 14:59 Other: # Voids 1 2 Weight 129.274 kg Results 08/06/22 14:59 08/06/22 15:32 Cardiac Enzymes 08/06/22 08/06/22 08/06/22 Range/Units 14:59 15:32 18:30 AST 23 (14-36) U/L Troponin I 0.012 <0.012 (0.000-0.034) ng/mL 08/06/22 Range/Units 21:17 AST (14-36) U/L Troponin I <0.012 (0.000-0.034) ng/mL Coagulation 08/06/22 Range/Units 14:59 PT 9.7 (9.0-12.0) sec APTT 18.1 L (22.0-30.0) sec CBC 08/06/22 Range/Units 14:59 WBC 8.2 (3.8-10.6) k/uL RBC 6.19 H (3.80-5.40) m/uL Hgb 18.9 H (11.4-16.0) gm/dL Hct 58.6 H* (34.0-46.0) % Plt Count 241 (150-450) k/uL Comprehensive Metabolic Panel 08/06/22 Range/Units 15:32 Sodium 138 (137-145) mmol/L Potassium 4.5 (3.5-5.1) mmol/L Chloride 102 (98-107) mmol/L Carbon Dioxide 27 (22-30) mmol/L BUN 16 (7-17) mg/dL Creatinine 0.65 (0.52-1.04) mg/dL Glucose 81 (74-99) mg/dL Calcium 9.2 (8.4-10.2) mg/dL AST 23 (14-36) U/L ALT 11 (4-34) U/L Alkaline Phosphatase 90 (38-126) U/L Total Protein 6.9 (6.3-8.2) g/dL Albumin 3.9 (3.5-5.0) g/dL Current Medications Generic Name Dose Route Start Last Admin Trade Name Freq PRN Reason Stop Dose Admin Albuterol Sulfate 2.5 mg 08/06/22 18:19 08/06/22 22:31 Albuterol Nebulized 2.5 Mg/3 Ml INHALATION 2.5 mg RT-Q4H PRN Administration Shortness Of Breath Apixaban 2.5 mg 08/06/22 21:00 08/06/22 22:05 Apixaban 2.5 Mg Tablet PO 2.5 mg BID SHWETA Administration Protocol Aripiprazole 5 mg 08/06/22 21:00 08/06/22 22:05 Aripiprazole 5 Mg Tab PO 5 mg HS SHWETA Administration Aspirin 325 mg 08/07/22 09:00 Aspirin 325 Mg Tab PO DAILY SHWETA Ergocalciferol 1,250 mcg 08/13/22 09:00 Ergocalciferol 1,250 Mcg (50,000 Iu) Capsule PO R[place]LAND SHWETA Gabapentin 600 mg 08/06/22 22:00 08/06/22 22:05 Gabapentin 300 Mg Cap PO 600 mg TID SHWETA Administration Ipratropium [place] 0.5 mg 08/07/22 08:00 08/07/22 07:44 Ipratropium 0.5 Mg/2.5 Ml Nebu INHALATION 0.5 mg RT-QID SHWETA Administration Levothyroxine Sodium 100 mcg 08/07/22 06:30 08/07/22 06:23 Levothyroxine 100 Mcg Tab PO 100 mcg DAILY@0630 [facility] Administration Nitroglycerin 0.4 mg 08/06/22 18:18 Nitroglycerin Sl Tabs 0.4 Mg Tab SUBLINGUAL Q5M PRN Chest Pain Nitroglycerin 1 inch 08/07/22 00:00 08/07/22 06:23 Nitroglycerin Oint 1 Inch/Gm Packet TOPICAL Not Given Q6HR [facility] Liraglutide [Saxenda 3 mg 08/07/22 09:00 ] 3 Mg/0.5 Ml Each SQ DAILY [facility] Venlafaxine HCl 150 mg 08/07/22 09:00 Venlafaxine Hcl Er 150 Mg Cap PO DAILY [facility] Intake and Output 08/06/22 08/07/22 08/07/22 22:59 06:59 14:59 Other: # Voids 1 2 Weight 129.274 kg 08/06/22 14:59 08/06/22 15:32
[2022-08-07] MEDS: GABAPENTIN 300 MG CAP PO SCH ×2 (09:34→14:51)
[2022-08-07] MEDS ORDERED: AMINOPHYLLINE 500 MG/20 ML VIAL IV PRN (10:29)
[2022-08-07] MEDS ORDERED: CAFFEINE CITRATE 60 MG/3 ML VIAL IV PRN (10:29)
[2022-08-07] MEDS ORDERED: REGADENOSON 0.4 MG/5 ML SYRINGE IV PRN (10:29)
[2022-08-07 11:59] LABS: Chol/HDL Ratio 3.99 Ratio; LDL Cholesterol,Calculated 152.5 mg/dL; VLDL Calculation 17.56 mg/dL
--- NOTE | 2022-08-07 12:31 | CA ---
Transthoracic Echo Report Name: Iva Ponce Age: 62 Gender: F : 1960 Exam Date: 08/07/2022 10:29 Exam Location: [facility] Ht (in): 73 Wt (lb): 285 Ordering Physician: Genesis Dykes Attending/Referring Phys: [id number], Jania Utilization Management Um Nurse Yanet Campos RDCS Procedure CPT: Indications: LV function Cardiac Hx: Technical Quality: Fair Contrast 1: Total Dose (mL): Contrast 2: Total Dose (mL): MEASUREMENTS (Male / Female) Normal Values 2D ECHO LV Diastolic Diameter PLAX 4.5 cm 4.2 - 5.9 / 3.9 - 5.3 cm LV Systolic Diameter PLAX 2.9 cm IVS Diastolic Thickness 1.6 cm 0.6 - 1.0 / 0.6 - 0.9 cm LVPW Diastolic Thickness 1.3 cm 0.6 - 1.0 / 0.6 - 0.9 cm LV Relative Wall Thickness 0.6 RV Internal Dim ED PLAX 3.4 cm LA Systolic Diameter LX 3.5 cm 3.0 - 4.0 / 2.7 - 3.8 cm LV Diastolic Volume MOD 4C 85.3 cm??? LV Systolic Volume MOD 4C 29.5 cm??? LV Ejection Fraction MOD 4C 65.5 % LV Diastolic Length 4C 9.1 cm LV Systolic Length 4C 7.4 cm LV Diastolic Volume MOD 2C 112.1 cm??? LV Systolic Volume MOD 2C 49.0 cm??? LV Ejection Fraction MOD 2C 56.3 % LV Diastolic Length 2C 9.1 cm LV Systolic Length 2C 7.0 cm LA Volume 62.3 cm??? 18 - 58 / 22 - 52 cm??? M-MODE Aortic Root Diameter MM 3.2 cm DOPPLER AV Peak Velocity 162.4 cm/s AV Peak Gradient 10.6 mmHg MV Area PHT 2.4 cm??? Mitral E Point Velocity 88.9 cm/s Mitral A Point Velocity 112.1 cm/s Mitral E to A Ratio 0.8 MV Deceleration Time 322.2 ms MV E' Velocity 8.8 cm/s Mitral E to MV E' Ratio 10.1 TR Peak Velocity 247.7 cm/s TR Peak Gradient 24.5 mmHg Right Ventricular Systolic Press 29.0 mmHg FINDINGS Left Ventricle Left ventricular ejection fraction is estimated at 60-65 %. Left ventricular cavity size normal. Moderately increased septal wall thickness. Mildly increased posterior wall thickness. Right Ventricle Mild right ventricular dilatation. Right ventricular systolic pressure within normal limits. Right Atrium Normal right atrial size. Left Atrium Mildly increased left atrial volume. Mildly increased left atrial area. Mitral Valve Structurally normal mitral valve. No mitral stenosis or prolapse. Trace to mild mitral regurgitation. Aortic Valve Trileaflet aortic valve. No aortic valve stenosis or regurgitation. Tricuspid Valve Structurally normal tricuspid valve. Trace to mild tricuspid regurgitation. Pulmonic Valve Structurally normal pulmonic valve. No pulmonic regurgitation. Pericardium Normal pericardium. No pericardial effusion. Aorta Normal size aortic root and proximal ascending aorta. CONCLUSIONS Technically difficult study for interpretation Normal LV systolic function Previewed by: Dr. Levi Cardenas MD (Electronically Signed) Final Date: 07 August 2022 12:30
--- NOTE | 2022-08-07 12:42 | CA ---
Lexiscan Nuclear Stress Test Report Name: Iva Ponce Exam Date: 08/07/2022 11:55 Exam Location: [facility] Ht (in): 75 Wt (lb): 285 BSA: 2.55 Ordering Phys: Genesis Dykes Referring Phys: Saad,, Technologist: OPAL,, Age: 62 Gender: F : 1960 Procedure CPT: Indications: Reflex order-Stress test ICD-10 Codes: Patient History: Chest pain Medications: Meds past 24 hrs: Pretest Chest Pain: STRESS TEST Lexiscan Protocol Exercise Duration (min:sec): 02:[address] Depressions (mm): Angina Score: Barr Score: Resting HR (bpm): 71 Peak HR (bpm): 117 Resting BP (mmHg): 138 / 77 Peak BP (mmHg): / 85 MPHR: 158 Target HR: 134 % MPHR: 74 METS: 1.0 Total Dose: Peak Dose: Atropine: Double Product: BP Response: Stress Termination: Infusion complete Stress Symptoms: No chest pain or symptoms Stress Summary: ECG ANALYSIS Resting ECG: Stress ECG: CONCLUSIONS Noncardiac diagnostic stress test Dr. Levi Cardenas MD (Electronically Signed) Final Date: 07 August 2022 12:41
[2022-08-07] MEDS: APIXABAN 2.5 MG TABLET PO SCH (13:10)
[2022-08-07 13:43] VITALS: BP 127/78; PULSE 75; RESP 16; TEMP 98.1
--- NOTE | 2022-08-07 14:21 | NM ---
EXAMINATION TYPE: NM stress lexiscan cardiolite DATE OF EXAM: 08/07/2022 COMPARISON: NONE CLINICAL INDICATION: Female, 62 years old with history of CP; history of tobacco use and COPD along w ith prior stroke. TECHNIQUE: After the intravenous administration of 10.7 mCi Tc 99m Sestamibi - Cardiolite resting SP ECT images acquired 60 minutes post injection. The patient received 0.4mg Lexiscan, 25.2 mCi Tc 99m Sestamibi - Stress images obtained [address] injection FINDINGS: Review of stress and rest SPECT images demonstrates no distinct perfusion abnormality. Gated analysi s shows normal wall motion with an estimated left ventricular ejection fraction of 72 %. IMPRESSION: No scintigraphic evidence for reversible ischemia.
--- NOTE | 2022-08-07 15:22 | P.DS ---
Providers Date of admission: 08/06/22 18:18 Expected date of discharge: 08/07/22 Attending physician: Carmen Nash MD Consults: 08/06/22 18:18 Consult Physician Urgent Consulting Provider: Nathanael Osorio Consult Reason/Comments: Unstable angina Do you want consulting provider notified?: Yes Primary care physician: Pretty Guthrie [facility] Course: Discharge Diagnosis: Chest pain, acute coronary syndrome ruled out, likely noncardiac Polycythemia Complex regional pain syndrome left foot History of DVT/PE Hypothyroidism Nicotine dependency Hospital Course: Patient is a 62-year-old female past medical history of DVT and pulmonary embolism on Eliquis, COPD, polycythemia, and prior CVA who presented to the emergency department with complaints of chest pain. In the ER she underwent an extensive evaluation. Her initial EKG showed no signs of ischemia, initial laboratory analysis was remarkable for hemoglobin of 18.9. Troponin was negative at 0.012. The ER she received an aspirin and a dose of nitro which abated her pain. She was admitted for further monitoring. The remainder of her troponins were negative. She was seen by cardiology. She completed a Lexiscan which showed no evidence of reversible ischemia. Echocardiogram demonstrated ejection fraction 60-65%. She was determined stable for discharge home with adequate outpatient follow-up. Follow-up: Dr. Guthrie in 2-3 days for noncardiac causes of chest pain, no medication changes are recommended at this time. Patient seen and examined at bedside. Currently chest pain-free, no dyspnea, asking to be discharged home. Vital signs reviewed and stable. General: nontoxic, no distress, appears at stated age Cardiovascular: S1S2 reg, no murmur, positive posterior tibial pulse bilateral, Lungs: CTA bilateral, no rhonchi, no rales , no accessory muscle use Abdominal: soft, nontender to palpation, no guarding, no appreciable organomegaly Ext: no gross muscle atrophy, no edema b/l lower extremities, no contractures Neuro: CN II-XI grossly intact, no focal neuro deficits Psych: Alert, oriented, appropriate affect A total of 25 minutes of time were spent preparing this complex discharge summary. Patient was discharged on 08/07/22. This dictation was prepared using [employer] voice recognition software. Though every attempt is made to correct errors during during dictation some may still exist. Patient Condition at Discharge: Stable Plan - Discharge Summary New Discharge Prescriptions: No Action Levothyroxine Sodium [Synthroid] 100 mcg PO DAILY Albuterol Sulfate [Ventolin HFA] 2 puff INHALATION RT-Q4H PRN PRN Reason: Shortness Of Breath Gabapentin [Neurontin] 600 mg PO TID Apixaban [Eliquis] 2.5 mg PO BID Ergocalciferol (Vitamin D2) [Drisdol (50,000 Iu)] 1,250 mcg PO R[place]LAND Venlafaxine HCl ER [Effexor XR] 150 mg PO DAILY ARIPiprazole [Abilify] 5 mg PO HS Liraglutide [Saxenda] 3 mg SQ DAILY Spiriva Respimat 1.25mcg/Actua 2 puff INHALATION RT-DAILY Discharge Medication List Albuterol Sulfate [Ventolin HFA] 2 puff INHALATION RT-Q4H PRN 05/03/16 [History] Levothyroxine Sodium [Synthroid] 100 mcg PO DAILY 05/03/16 [History] Gabapentin [Neurontin] 600 mg PO TID 08/29/18 [History] ARIPiprazole [Abilify] 5 mg PO HS 11/17/21 [History] Liraglutide [Saxenda] 3 mg SQ DAILY 11/17/21 [History] Venlafaxine HCl ER [Effexor XR] 150 mg PO DAILY 11/17/21 [History] Apixaban [Eliquis] 2.5 mg PO BID 08/06/22 [History] Ergocalciferol (Vitamin D2) [Drisdol (50,000 Iu)] 1,250 mcg PO [place] 08/06/22 [History] Spiriva Respimat 1.25mcg/Actua 2 puff INHALATION RT-DAILY 08/06/22 [History] Follow up Appointment(s)/Referral(s): Pretty Guthrie MD [Primary Care Provider] - 1-2 days
[2022-08-13] MEDS ORDERED: ERGOCALCIFEROL 1,250 MCG (50,000 IU) CAPSULE PO SCH (09:00)
== END 2022-08-07 15:54 | disposition home or self-care (01) ==
LOC: EC 14:28 → 6NMEDSUR 18:18
PROVIDERS: ADMIT Internal Medicine; ATTEND Internal Medicine
DX: R07.89 Other chest pain (principal); D75.1 Secondary polycythemia; G57.72 Causalgia of left lower limb; E03.9 Hypothyroidism, unspecified; J44.9 Chronic obstructive pulmonary disease, unspecified; F41.9 Anxiety disorder, unspecified; F17.210 Nicotine dependence, cigarettes, uncomplicated; E66.9 Obesity, unspecified; Z68.35 Body mass index [BMI] 35.0-35.9, adult; Z79.890 Hormone replacement therapy; Z79.899 Other long term (current) drug therapy; Z88.1 Allergy status to other antibiotic agents; M79.89 Other specified soft tissue disorders; Z86.711 Personal history of pulmonary embolism; Z86.718 Personal history of other venous thrombosis and embolism; Z86.73 Personal history of transient ischemic attack (TIA), and cerebral infarction without residual deficits; Z79.01 Long term (current) use of anticoagulants; Z96.653 Presence of artificial knee joint, bilateral; Z96.641 Presence of right artificial hip joint; Z98.890 Other specified postprocedural states; Z90.710 Acquired absence of both cervix and uterus; Z80.7 Family history of other malignant neoplasms of lymphoid, hematopoietic and related tissues
CPT/HCPCS: 99291; 36415; 94640 ×2; 94760; 93005; 93017; 93306; 83880; 80061; 80053; 83690; 83735; 84484; 85025; 85610; 85730; 71046; 78452; G0378 ×2; A9500; J2785

== ENCOUNTER → 2022-08-14 | Outpatient (CLI) | payer BC ==
[2022-08-14 16:00] LABS: % Iron Saturation 17.48 (12.00-45.00); Ferritin 91.2 ng/mL (10.0-291.0); Iron 72 UG/DL (50-170); T4, Free (Free Thyroxine) 1.53 ng/dL (0.80-1.80); Total Iron Binding Capacity 412 UG/DL (228-460)
[2022-08-14 16:13] LABS: ALT 5 U/L (8-44); AST 19 U/L (13-35); Albumin 4.2 d/dL (3.8-4.9); Albumin/Globulin Ratio 1.62 Ratio (1.60-3.17); Alkaline Phosphatase 109 U/L (41-126); BUN/Creat Ratio 22.88 Ratio (12.00-20.00); Blood Urea Nitrogen 18.3 mg/dL (9.0-27.0); Calcium 9.7 mg/dL (8.7-10.3); Carbon Dioxide 26.6 mmol/L (21.6-31.8); Chloride 102 mmol/L (96-109); Globulin 2.6 d/dL (1.6-3.3); Glucose 76 mg/dL (70-110); Potassium 5.2 mmol/L (3.5-5.5); Sodium 143 mmol/L (135-145); Total Bilirubin 0.5 mg/dL (0.3-1.2); Total Protein 6.8 d/dL (6.2-8.2)
== END | disposition home or self-care (01) ==
LOC: LABWHC1 08:36
PROVIDERS: ATTEND Family Medicine
DX: E80.0 Hereditary erythropoietic porphyria (principal); R53.83 Other fatigue
CPT/HCPCS: 36415; 80053; 82306; 82607; 82728; 83540; 83550; 84439; 84443; 85025

== ENCOUNTER → 2022-08-17 | Outpatient (CLI) | payer BC ==
[2022-08-17 22:22] LABS: Basophils # (A) 0.03 X 10*3/uL (0.00-0.10); Basophils % (A) 0.4 %; Eosinophils # (A) 0 X 10*3/uL (0.04-0.35); Eosinophils % (A) 0 %; HCT 57.9 % (37.2-46.3); HGB 18.7 d/dL (12.0-15.0); Lymphocytes % (A) 34.4 %; MCH 30.4 pg (27.0-32.0); MCHC 32.3 d/dL (32.0-37.0); Mean Platelet Volume 10.1 FL (9.5-12.2); Monocytes # (A) 1.05 X 10*3/uL (0.20-1.00); Monocytes % (A) 13.4 %; NRBC Per 100 WBC 0 X 10*3/uL (0.00-0.01); Neutrophils # (A) 4.06 X 10*3/uL (1.80-7.70); Neutrophils % (A) 51.5 %; Platelet Count 270 X 10*3/uL (140-440); RBC 6.16 X 10*6/uL (4.10-5.20); RDW 14.9 % (11.5-14.5); WBC 7.86 X 10*3/uL (4.50-10.00)
== END | disposition home or self-care (01) ==
LOC: LABWHC1 13:16
PROVIDERS: ATTEND Family Medicine
DX: E80.0 Hereditary erythropoietic porphyria (principal); R53.83 Other fatigue
CPT/HCPCS: 36415; 85025

== ENCOUNTER → 2022-11-14 | Outpatient (CLI) | payer BC, MEDICARE ==
[2022-11-14 16:41] LABS: ALT 6 U/L (8-44); AST 19 U/L (13-35); Albumin 4.3 d/dL (3.8-4.9); Albumin/Globulin Ratio 1.65 Ratio (1.60-3.17); Alkaline Phosphatase 100 U/L (41-126); Blood Urea Nitrogen 14.4 mg/dL (9.0-27.0); Calcium 9.8 mg/dL (8.7-10.3); Carbon Dioxide 29.4 mmol/L (21.6-31.8); Chloride 104 mmol/L (96-109); Chol/HDL Ratio 3.53 Ratio; Globulin 2.6 d/dL (1.6-3.3); Glucose 89 mg/dL (70-110); LDL Cholesterol,Calculated 161.8 mg/dL (0.0-131.0); Potassium 5.1 mmol/L (3.5-5.5); Sodium 143 mmol/L (135-145); Total Bilirubin 0.6 mg/dL (0.3-1.2); Total Protein 6.9 d/dL (6.2-8.2)
== END | disposition home or self-care (01) ==
LOC: LABWHC1 08:37
PROVIDERS: ATTEND Family Medicine
DX: E03.9 Hypothyroidism, unspecified (principal); E66.9 Obesity, unspecified
CPT/HCPCS: 36415; 80053; 80061; 83036

== ENCOUNTER → 2022-11-20 | Outpatient (CLI) | payer BC ==
--- NOTE | 2022-11-22 07:57 | CTL ---
EXAMINATION TYPE: CT Low Dose Lung DATE OF EXAM ORDERED: 11/20/2022 COMPARISON: 03/21/2021 HISTORY: . Low Dose CT Lung Screening CT DLP: 97.[address] CTDI: 2.6 mGy IV CONTRAST USED: None. SCREENING VISIT: Third visit COMPARISON: None. TECHNIQUE: Low dose computed tomography scan was performed through the chest at 1 millimeter thick se ctions and reconstructed images in the coronal plane at [address] DIAGNOSTIC QUALITY: Satisfactory FINDINGS: LUNG NODULES: 5 mm pleural-based nodule right upper lobe image 132 stable in appearance. 2.5 mm subpleural nodule left upper lobe posteriorly image 72. LUNGS: COPD: Severity: Mild Fibrosis: Severity:None Lymph nodes: None Other findings: None RIGHT PLEURAL SPACE: Effusion: None Calcification: None Thickening: None Pneumothorax: None LEFT PLEURAL SPACE: Effusion: None Calcification: None Thickening: None Pneumothorax: None HEART: Heart Size: Mildly enlarged Coronary calcification: Mild Pericardial effusion: None Prominence of the main pulmonary artery. Reflect underlying pulmonary arterial hypertension. OTHER FINDINGS: Upper abdomen: No significant abnormality Bony thorax: Degenerative changes Supraclavicular region: No significant abnormalityOther: No significant abnormalityI IMPRESSION: 1. Stable pulmonary nodularity. 2. Correlate for pulmonary arterial hypertension. FOLLOW UP CT CHEST RECOMMENDATION: Follow-up screening in one year CT LUNG RAD: LUNG RAD CATEGORY Lung-Rad 2 Benign Appearance or Behavior: Continue annual screening with LDCT in 12 months.
== END | disposition home or self-care (01) ==
LOC: RADCTMAIN 16:20
PROVIDERS: ATTEND Internal Medicine Hematology & Oncology
DX: Z12.2 Encounter for screening for malignant neoplasm of respiratory organs (principal); R91.8 Other nonspecific abnormal finding of lung field; F17.210 Nicotine dependence, cigarettes, uncomplicated
CPT/HCPCS: 71271

== ENCOUNTER → 2023-07-23 | Outpatient (CLI) | payer BC ==
[2023-07-23 15:43] LABS: Basophils # (A) 0.03 X 10*3/uL (0.00-0.10); Basophils % (A) 0.4 %; Eosinophils # (A) 0.18 X 10*3/uL (0.04-0.35); Eosinophils % (A) 2.2 %; HGB 17.9 g/dL (12.0-15.0); Lymphocytes # (A) 2.24 X 10*3/uL (0.90-5.00); Lymphocytes % (A) 27.4 %; MCH 30.1 pg (27.0-32.0); MCHC 31.4 g/dL (32.0-37.0); Mean Platelet Volume 10.8 FL (9.5-12.2); Monocytes # (A) 0.97 X 10*3/uL (0.20-1.00); Monocytes % (A) 11.9 %; NRBC Per 100 WBC 0 X 10*3/uL (0.00-0.01); Neutrophils # (A) 4.73 X 10*3/uL (1.80-7.70); Neutrophils % (A) 57.9 %; Platelet Count 223 X 10*3/uL (140-440); RBC 5.94 X 10*6/uL (4.10-5.20); RDW 14.7 % (11.5-14.5); WBC 8.17 X 10*3/uL (4.50-10.00)
[2023-07-23 16:16] LABS: Chol/HDL Ratio 3.42 Ratio; LDL Cholesterol,Calculated 163.2 mg/dL (0.0-131.0)
[2023-07-23 16:17] LABS: ALT 6 U/L (8-44); AST 19 U/L (13-35); Albumin 4.5 g/dL (3.8-4.9); Albumin/Globulin Ratio 1.73 Ratio (1.60-3.17); Alkaline Phosphatase 105 U/L (41-126); BUN/Creat Ratio 17.25 Ratio (12.00-20.00); Blood Urea Nitrogen 13.8 mg/dL (9.0-27.0); Calcium 9.6 mg/dL (8.7-10.3); Carbon Dioxide 27.2 mmol/L (21.6-31.8); Chloride 104 mmol/L (96-109); Globulin 2.6 g/dL (1.6-3.3); Glucose 91 mg/dL (70-110); Potassium 4.6 mmol/L (3.5-5.5); Sodium 143 mmol/L (135-145); T4, Free (Free Thyroxine) 1.68 ng/dL (0.80-1.80); Total Bilirubin 0.6 mg/dL (0.3-1.2); Total Protein 7.1 g/dL (6.2-8.2)
== END | disposition home or self-care (01) ==
LOC: LABWHC1 08:04
PROVIDERS: ATTEND Family Medicine
DX: I26.99 Other pulmonary embolism without acute cor pulmonale (principal); E03.9 Hypothyroidism, unspecified
CPT/HCPCS: 36415; 80053; 80061; 83036; 84439; 84443; 85025

== ENCOUNTER → 2023-11-22 | Outpatient (CLI) | payer BC ==
--- NOTE | 2023-11-22 11:50 | CTL ---
EXAMINATION TYPE: CT Low Dose Lung DATE OF EXAM ORDERED: 11/22/2023 History: Lung cancer screening CT DLP: 110.[address] CTDI: 3.10 mGy Automated exposure control for dose reduction was used. Comparison: 11/20/2022 TECHNIQUE: Low dose computed tomography scan was performed through the chest at 1 mm thick sections and reconstructed images in multiple planes at 1 mm and [address] DIAGNOSTIC QUALITY: Satisfactory FINDINGS: There are mild emphysematous changes with an upper lobe predominance. There are 2-3 stable sub-5 mm nodules in the upper lobes. No new or suspicious lung mass or nodule is seen. The lungs are clear and there is no abnormal consolidation or interstitial density. There is no mediastinal, hilar or axillary adenopathy. The pulmonary artery is 4.6 cm in diameter region. Hypertension There is no pleural effusion, pleural thickening or pneumothorax. No focal osseous lesions are seen. Limited scans the upper abdomen reveals no gross adenopathy. IMPRESSION: 1. BI-RADS Category 2 benign. Continue routine screening at yearly intervals. 2. No acute cardiopulmonary disease. 3. Mild emphysematous changes. 4. Questionable pulmonary hypertension based and dilated main pulmonary artery. [facility], , 11/22/2023 11:48 AM
== END | disposition home or self-care (01) ==
LOC: RADCTMAIN 10:48
PROVIDERS: ATTEND Internal Medicine Hematology & Oncology
DX: Z12.2 Encounter for screening for malignant neoplasm of respiratory organs (principal); J43.9 Emphysema, unspecified; F17.210 Nicotine dependence, cigarettes, uncomplicated
CPT/HCPCS: 71271

== ENCOUNTER → 2023-12-03 | Outpatient (CLI) | payer BC ==
--- NOTE | 2023-12-04 09:36 | MM ---
Reason for Exam: Screening (asymptomatic). Last screening mammogram was performed 12 month(s) ago. Patient History: Menarche at age 9. First Full-Term at age 23. Hysterectomy at age 35. Postmenopausal. Maternal grandmother had breast cancer, age 45. Risk Values: Birgit 5 year model risk: 1.5%. NCI Lifetime model risk: 6.6%. Prior Study Comparison: 11/09/2020 Bilateral Screening Mammogram, [facility]. 11/10/2021 Bilateral MG 3D screening mammo w/cad, [facility]. 11/30/2022 Bilateral MG 3D screening mammo w/cad, [facility]. Tissue Density: There are scattered areas of fibroglandular density. Findings: Analyzed By CAD. There is no suspicious group of microcalcifications or new suspicious mass in either breast. Overall Assessment: Negative, BI-RAD 1 Management: Screening Mammogram of both breasts in 1 year. . Patient should continue monthly self-breast exams. A clinical breast exam by your physician is recommended on an annual basis. This exam should not preclude additional follow-up of suspicious palpable abnormalities. Note on Birgit scores and lifetime risk: 1. A Birgit score greater than 3% is considered moderate risk. If this is the case, consider specialist referral to assess eligibility for a risk reducing agent. 2. If overall lifetime risk for the development of breast cancer is 20% or higher, the patient may qualify for future screening with alternating mammogram and breast MRI. [facility], , 12/04/2023 9:33 AM. Electronically signed and approved by: Quincy Tejeda M.D. Radiologis
== END | disposition home or self-care (01) ==
LOC: RADMAMWWP 15:10
PROVIDERS: ATTEND Family Medicine
CPT/HCPCS: 77063; 77067

== ENCOUNTER → 2023-12-31 | Outpatient (CLI) | payer BC ==
[2023-12-31 14:08] LABS: Chol/HDL Ratio 3.05 Ratio; VLDL Calculation 19.12 mg/dL (5.00-40.00)
[2023-12-31 14:47] LABS: ALT 6 U/L (8-44); AST 30 U/L (13-35); Albumin 4.3 g/dL (3.8-4.9); Albumin/Globulin Ratio 1.39 Ratio (1.60-3.17); Alkaline Phosphatase 112 U/L (41-126); BUN/Creat Ratio 19.38 Ratio (12.00-20.00); Blood Urea Nitrogen 15.5 mg/dL (9.0-27.0); Calcium 9.7 mg/dL (8.7-10.3); Carbon Dioxide 25.4 mmol/L (21.6-31.8); Chloride 104 mmol/L (96-109); Globulin 3.1 g/dL (1.6-3.3); Glucose 81 mg/dL (70-110); Potassium 5.4 mmol/L (3.5-5.5); Sodium 142 mmol/L (135-145); Total Bilirubin 0.6 mg/dL (0.3-1.2); Total Protein 7.4 g/dL (6.2-8.2)
== END | disposition home or self-care (01) ==
LOC: LABWHC1 07:34
PROVIDERS: ATTEND Family Medicine
CPT/HCPCS: 36415; 80053; 80061; 83036

== ENCOUNTER → 2024-06-03 | Outpatient (CLI) | payer BC ==
[2024-06-03 15:09] LABS: ALT 6 U/L (8-44); AST 22 U/L (13-35); Albumin 4.1 g/dL (3.8-4.9); Albumin/Globulin Ratio 1.46 Ratio (1.60-3.17); Alkaline Phosphatase 112 U/L (41-126); BUN/Creat Ratio 19.38 Ratio (12.00-20.00); Blood Urea Nitrogen 15.5 mg/dL (9.0-27.0); Calcium 9.6 mg/dL (8.7-10.3); Carbon Dioxide 26.9 mmol/L (21.6-31.8); Chloride 101 mmol/L (96-109); Chol/HDL Ratio 2.03 Ratio; Globulin 2.8 g/dL (1.6-3.3); Glucose 90 mg/dL (70-110); LDL Cholesterol,Calculated 74.9 mg/dL (0.0-131.0); Potassium 4.9 mmol/L (3.5-5.5); Sodium 140 mmol/L (135-145); T4, Free (Free Thyroxine) 1.35 ng/dL (0.80-1.80); Total Bilirubin 0.5 mg/dL (0.3-1.2); Total Protein 6.9 g/dL (6.2-8.2); VLDL Calculation 13.32 mg/dL (5.00-40.00)
[2024-06-03 16:38] LABS: Basophils # (A) 0.02 X 10*3/uL (0.00-0.10); Basophils % (A) 0.2 %; Eosinophils # (A) 0 X 10*3/uL (0.04-0.35); Eosinophils % (A) 0 %; HCT 55.1 % (37.2-46.3); HGB 17.1 g/dL (12.0-15.0); Lymphocytes # (A) 2.21 X 10*3/uL (0.90-5.00); Lymphocytes % (A) 24.8 %; MCH 29.1 pg (27.0-32.0); MCV 93.7 FL (80.0-97.0); Mean Platelet Volume 10.8 FL (9.5-12.2); Monocytes # (A) 1.19 X 10*3/uL (0.20-1.00); Monocytes % (A) 13.4 %; NRBC Per 100 WBC 0 X 10*3/uL (0.00-0.01); Neutrophils # (A) 5.45 X 10*3/uL (1.80-7.70); Neutrophils % (A) 61.2 %; Platelet Count 269 X 10*3/uL (140-440); RBC 5.88 X 10*6/uL (4.10-5.20); WBC 8.91 X 10*3/uL (4.50-10.00)
== END | disposition home or self-care (01) ==
LOC: LABWHC1 08:00
PROVIDERS: ATTEND Family Medicine
DX: Z00.00 Encounter for general adult medical examination without abnormal findings (principal); E03.9 Hypothyroidism, unspecified; R73.02 Impaired glucose tolerance (oral)
CPT/HCPCS: 36415; 80053; 80061; 83036; 84439; 84443; 85025

== ENCOUNTER → 2024-09-02 | Outpatient (CLI) | payer BC ==
[2024-09-02 15:03] LABS: HCT 53.8 % (37.2-46.3); HGB 16.9 g/dL (12.0-15.0); MCH 29.1 pg (27.0-32.0); MCHC 31.4 g/dL (32.0-37.0); MCV 92.8 FL (80.0-97.0); NRBC Per 100 WBC 0 X 10*3/uL (0.00-0.01); Platelet Count 267 X 10*3/uL (140-440); RBC 5.80 X 10*6/uL (4.10-5.20); RDW 15.0 % (11.5-14.5); WBC 7.05 X 10*3/uL (4.50-10.00)
[2024-09-02 16:12] LABS: ALT 5 U/L (8-44); AST 21 U/L (13-35); Albumin 4.2 g/dL (3.8-4.9); Albumin/Globulin Ratio 1.75 Ratio (1.60-3.17); Alkaline Phosphatase 103 U/L (41-126); Anion Gap 10.90 mmol/L (4.00-12.00); BUN/Creat Ratio 19.12 Ratio (12.00-20.00); Blood Urea Nitrogen 15.3 mg/dL (9.0-27.0); Calcium 9.2 mg/dL (8.7-10.3); Carbon Dioxide 25.1 mmol/L (21.6-31.8); Chloride 106 mmol/L (96-109); Globulin 2.4 g/dL (1.6-3.3); Glucose 86 mg/dL (70-110); Potassium 4.8 mmol/L (3.5-5.5); Sodium 142 mmol/L (135-145); Total Protein 6.6 g/dL (6.2-8.2)
== END | disposition home or self-care (01) ==
LOC: LABPAT 08:20
PROVIDERS: ATTEND Psychiatry & Neurology Neurology
DX: Z01.818 Encounter for other preprocedural examination (principal); I51.89 Other ill-defined heart diseases; I45.89 Other specified conduction disorders; R94.31 Abnormal electrocardiogram [ECG] [EKG]
CPT/HCPCS: 80053; 85027; 93005